=== PATIENT | female | born 1985 | race Caucasian/White ===

== ENCOUNTER → 2020-08-11 14:01 | Outpatient (BNVA) | payer OTHER, SELFPAY | PROVIDERS: PCP Internal Medicine; Referring Provider Internal Medicine; Visit Provider Advanced Practice Midwife | DX: Z76.89 Persons encountering health services in other specified circumstances (principal) ==

== ENCOUNTER 2020-08-18 08:08 | Outpatient (REF) | payer OTHER, SELFPAY ==
[2020-08-18 10:56] LABS: Amphetamine Screen Urine Not Detected (Not Detect); Barbiturates, Urine Not Detected (Not Detect); Benzodiazepines Screen Urine Not Detected (Not Detect); Cannabinoid Screen Urine Not Detected (Not Detect); Cocaine Screen Urine Not Detected (Not Detect); Opiate Screen Urine Not Detected (Not Detect); Phencyclidine Screen Urine Not Detected (Not Detect)
[2020-08-18 11:04] LABS: MANUAL DIFF FLAG NO
[2020-08-18 11:12] LABS: Basophils Absolute Auto 0.1 X10*3/uL (0.0-0.2); Basophils Percent Auto 0.5 % (0-2); Eosinophils Absolute Auto 0.3 X10*3/uL (0.0-0.4); Eosinophils Percent Auto 3.1 % (0-4); Hematocrit 37.9 % (37-47); Hemoglobin 13.1 g/dl (12.0-16.0); Imm Gran Abs Auto 0.05 X10*3/uL (0.00-0.03); Imm Gran Pct Auto 0.5 % (0.0-0.4); Lymphocytes Absolute Auto 2.1 X10*3/uL (1.2-4.9); Lymphocytes Percent Auto 19.6 % (20-40); Mean Corpuscular HGB Conc 34.6 g/dl (31.0-35.0); Mean Corpuscular Hemoglobin 30.8 pg (27.0-33.0); Mean Platelet Volume 9.4 fL (9.4-12.3); Monocytes Absolute Auto 0.6 X10*3/uL (0.1-1.2); Monocytes Percent Auto 5.8 % (2-11); Neutrophils Absolute Auto 7.7 X10*3/uL (2.0-8.3); Neutrophils Percent Auto 70.5 % (45-73); Platelet Count 329 X10*3/uL (160-400); Red Blood Count 4.26 X10*6/uL (4.20-5.50); White Blood Count 10.9 X10*3/uL (4.8-10.8)
[2020-08-18 11:28] LABS: Glucose 1 Hour PP 50gm Dose 171 mg/dL (60-140)
[2020-08-18 20:27] LABS: Syphilis Screen Nonreactive (Nonreactive)
[2020-08-21 08:43] LABS: HBsAGNum1 0.47 S/CO (0.00-0.99); HIV AB/AG Nonreactive (Nonreactive); HIV Num 1 0.08 S/CO (0.00-0.99); Hepatitis B Surface Antigen Negative (Negative)
== END 2020-08-18 08:09 | disposition home or self-care (01) ==
LOC: HO.LAB 08:08
PROVIDERS: PCP Internal Medicine; Referring Provider Internal Medicine; Visit Provider Advanced Practice Midwife
DX: Z34.90 Encounter for supervision of normal pregnancy, unspecified, unspecified trimester (principal)
CPT/HCPCS: 36415; 80307; 85025; 86762; 86780; 86787; 87340; 87389

== ENCOUNTER 2020-08-22 08:51 | Outpatient (REF) | payer OTHER, SELFPAY ==
[2020-08-22 16:00] LABS: CT PCR NOT DETECTED (Not Detect.); NG PCR NOT DETECTED (Not Detect.)
== END 2020-08-22 08:52 | disposition home or self-care (01) ==
LOC: HO.LAB 08:51
PROVIDERS: PCP Internal Medicine; Visit Provider Advanced Practice Midwife
DX: O09.521 Supervision of elderly multigravida, first trimester (principal); O99.211 Obesity complicating pregnancy, first trimester; O24.419 Gestational diabetes mellitus in pregnancy, unspecified control; Z3A.12 12 weeks gestation of pregnancy
CPT/HCPCS: 87086; 87491; 87591

== ENCOUNTER 2020-09-01 08:23 | Outpatient (REF) | payer OTHER, SELFPAY ==
[2020-09-01 11:08] LABS: Glucose 1 Hour 215 mg/dL
[2020-09-01 11:08] LABS: Glucose Fasting 86 mg/dL (60-99)
--- NOTE | 2020-09-01 12:17 | US_ITS ---
EXAMINATION: OBSTETRICAL ULTRASOUND, FIRST TRIMESTER HISTORY: 35-year-old at 13.4 weeks of gestation BMI 39.8 NT screening COMPARISON: 07/20/2020 TECHNIQUE: Real time transabdominal imaging with color and M-mode Doppler. FINDINGS: A single, live IUP CRL of 71 mm c/w 13.4wks is noted. Heart Rate: 144 beats per minute. Normal yolk sac seen. NT was 1.2.mm. NB Present The embryo appears sonographically wnl for this GA. Both maternal ovaries are seen and appear normal. GESTATIONAL AGE: 1. Established GA: 13.4 wks 2. GA from [facility]: 13.3 wks ESTIMATED DATE OF DELIVERY: 1. Established SANJAY: 03/05/2021 2. SANJAY from A: 03/06/2021 US/US OB 1T nuc measure IMPRESSION: 1. A single live IUP 2. Size equals dates 3. NT of 1.2 mm MFM Consultation: I reviewed the ultrasound findings along with significance of NT measurement. The NT of less than 3mm is generally reassuring. However, the sensitivity for T21 detection is only 60%. I reviewed the availability of serum aneuploidy screening which includes cell-free DNA and placental protein based tests. I discussed the sensitivity, false-positive rate, and other limitations associated with each test. I also reviewed the availability of invasive diagnostic tests that are associated small but definite risk of miscarriage. We also reviewed the differences between screening tests and diagnostic tests. After our discussion, she opted for the First trimester screening that is based on cell-free DNA or non-invasive testing (NIPT). The result will be faxed to your office in approximately 7 days. A follow up at 18 weeks for survey has been scheduled. Thank you very much for this referral. Majority of this visit was spent reviewing her care and counselling her in face to face time: Time spent 30 min.
[2020-09-01 12:58] LABS: Glucose 2 Hour 149 mg/dL
[2020-09-01 13:36] LABS: Glucose 3 Hour 64 mg/dL
== END 2020-09-01 08:24 | disposition home or self-care (01) ==
LOC: HO.US 08:23
PROVIDERS: PCP Internal Medicine; Visit Provider Advanced Practice Midwife
DX: Z34.90 Encounter for supervision of normal pregnancy, unspecified, unspecified trimester (principal); Z36.82 Encounter for antenatal screening for nuchal translucency
CPT/HCPCS: 76813; 82951

== ENCOUNTER → 2020-09-12 08:25 | Outpatient (BNVA) | payer OTHER, SELFPAY | PROVIDERS: PCP Internal Medicine; Visit Provider Advanced Practice Midwife | DX: Z76.89 Persons encountering health services in other specified circumstances (principal) ==

== ENCOUNTER 2020-10-13 12:53 | Outpatient (REF) | payer OTHER, SELFPAY ==
--- NOTE | 2020-10-13 12:57 | US_ITS ---
EXAMINATION: US OBSTETRICAL CLINICAL INFORMATION: 35-year-old at 19.4 weeks of gestation Suspected anomaly AMA COMPARISON: 09/01/2020 TECHNIQUE: Real-time transabdominal ultrasound was performed using C1-5 megahertz transducer. FINDINGS: A single, active, fetus is seen in vertex presentation. The placenta is anterior without previa, and the amniotic fluid volume is wnl. MEASUREMENTS: 1. Biparietal Diameter: 4.4 cm; 19.2 wks 2. Occipital Frontal Diameter: 6.1 cm 3. Head Circumference: 16.98 cm; 19.5 wks 4. Abdominal Circumference: 14.96 cm; 20.2 wks 5. Femur Length: 3.1 cm; 19.5 wks 6. Humerus Length: 2.9 cm; 19.3 wks 7. Tibia Length: 2.8 cm; 20.1 wks 8. Ulna Length: 2.6 cm; 19.4 wks 9. Lateral ventricle: 0.64 cm 10. Cerebellum: 1.94 cm; 20.0 wks 11. Cisterna Magna: 0.38 cm 12. Nuchal Fold: 2.91 mm 13. Heart Rate: 152 beats per minute Rt ovary: normal Lt ovary: normal Cervical length 4.3 cm on T/A. GESTATIONAL AGE: 1. Established GA: 19.4 wks 2. GA from [facility]: 19.6 wks ESTIMATED DATE OF DELIVERY: 1. Established SANJAY: 03/05/2021 2. SANJAY from [facility]: 03/03/2021 ANATOMY: The visualized anatomy includes but not limited to: 1. Cranium: Normal 2. Intracranial anatomy: cavum septum pellucidi, lateral ventricles, choroid plexus, cerebellum, posterior fossa, third and fourth ventricles. 3. face: orbits, lip/palate, profile, nasal bone 4. Heart: four-chamber view of the heart, ventricular septum, foramen ovale, pulmonary vein, left and right outflow tracts, three-vessel view, 3 vessel trachea view, aortic and ductal arches, situs.. 5. Diaphragm: Normal 6. Abdominal wall: Normal 7. Cord Insertion: Normal 8. Spine: Cervical, thoracic, lumbar, sacral. 9. Stomach: Normal size and shape 10. Right Kidney: Normal 11. Left Kidney: Normal 12. 3 vessel cord: Normal 13. Upper extremity: Open hands, fifth digit. 14. Lower extremity: Tibia, fibula, bilateral feet. 15. Bladder: Normal 16. Genitalia: Female, patient aware US/US OB /maternal detail IMPRESSION: 1. Single, living, intrauterine with appropriate biometry. 2. Normal survey DISCUSSION: I reviewed today's ultrasound findings. We discussed the limitations of ultrasound in diagnosing aneuploidy and other congenital abnormalities. I reviewed the differences between screening test and diagnostic test. Amniocentesis was discussed and declined. She was informed that the baseline incidence of congenital abnormalities is approximately 3-5%. Not all these conditions are diagnosable in utero. RECOMMENDATIONS: 1. Follow-up when necessary Thank you for allowing me to participate in her care. Visiting time 25 minutes. Majority of this visit was spent reviewing and discussing her care.
== END 2020-10-13 12:54 | disposition home or self-care (01) ==
LOC: HO.US 12:53
PROVIDERS: Visit Provider Advanced Practice Midwife
DX: O09.522 Supervision of elderly multigravida, second trimester (principal); O99.212 Obesity complicating pregnancy, second trimester; E66.9 Obesity, unspecified; Z36.3 Encounter for antenatal screening for malformations; Z3A.19 19 weeks gestation of pregnancy
CPT/HCPCS: 76811

== ENCOUNTER 2020-11-09 10:27 | Outpatient (REF) | payer OTHER, SELFPAY ==
[2020-11-10 12:55] LABS: BV Int Neg Control Negative (Negative); BV Int Pos Control Positive (Positive)
[2020-11-12 08:12] LABS: C. trachomatis RNA TMA NOT DETECTED (NOT DETECTED); N. gonorrhoeae RNA TMA NOT DETECTED (NOT DETECTED)
== END 2020-11-09 10:28 | disposition home or self-care (01) ==
LOC: HO.LAB 10:27
PROVIDERS: PCP Internal Medicine; Visit Provider Advanced Practice Midwife
DX: O26.892 Other specified pregnancy related conditions, second trimester (principal); R31.29 Other microscopic hematuria; N89.8 Other specified noninflammatory disorders of vagina; Z3A.23 23 weeks gestation of pregnancy
CPT/HCPCS: 81003; 86850; 86900; 86901; 87086; 87480; 87491; 87510; 87591; 87660; 99212

== ENCOUNTER → 2020-11-16 10:36 | Outpatient (BNVA) | payer OTHER, SELFPAY | PROVIDERS: PCP Internal Medicine; Visit Provider Advanced Practice Midwife | DX: Z34.80 Encounter for supervision of other normal pregnancy, unspecified trimester (principal); E66.9 Obesity, unspecified | CPT/HCPCS: 81003; 99212 ==

== ENCOUNTER → 2020-12-14 11:01 | Outpatient (BNVA) | payer OTHER, SELFPAY | PROVIDERS: PCP Internal Medicine; Visit Provider Advanced Practice Midwife | DX: O09.523 Supervision of elderly multigravida, third trimester (principal); O99.213 Obesity complicating pregnancy, third trimester; E66.9 Obesity, unspecified; Z3A.28 28 weeks gestation of pregnancy; Z79.82 Long term (current) use of aspirin | CPT/HCPCS: 81003; 90471; 90715; 99212 ==

== ENCOUNTER 2020-12-20 07:35 | Outpatient (REF) | payer OTHER, SELFPAY ==
--- NOTE | ~2020-12-20 | US_ITS ---
EXAMINATION: US OBSTETRICAL FOLLOW UP WITH BIOPHYSICAL PROFILE CLINICAL INFORMATION: Obesity. Advanced maternal age. COMPARISON: Previous exam most recent October 2020 TECHNIQUE: Real time transabdominal imaging with color and M-mode Doppler. POSITION: Breech PLACENTA: Anterior. Grade 2. AMNIOTIC FLUID INDEX: 14.1 cm MEASUREMENTS: The initial dating ultrasound dated provided an estimated date of delivery of 03/05/2021. This would project today to a of 29 weeks 2 days. biometric measurements are as follows: Biparietal Diameter: 7.6 cm (30 weeks 5 days) Occipital Frontal Diameter: 10.2 cm (31 weeks 6 days) Head Circumference: 28.6 cm (31 weeks 4 days) Abdominal Circumference: 27.8 cm (32 weeks 0 days) Femur Length: 5.6 cm (29 weeks 4 days) The standard deviation for the above measurements is +/- 3 weeks. ESTIMATED WEIGHT: The EFW is 1683 grams +/- 246 grams (3 lbs 11 oz +/- 9 oz). This is at the 92nd percentile. BIOPHYSICAL PROFILE: Biophysical profile is performed over 30 minutes with assessment of breathing, gross body movement, tone, and qualitative amniotic fluid volume. Each matrix is scored 0 or 2, depending if the metric is present. Maximum total score possible is 8. Motion: 2 Tone: 2 Breathin Amniotic Fluid: 2 Total score: 8 HR: 153 bpm US/US OB follow up IMPRESSION: 1. Single intrauterine gestation in breech position with anterior placenta. 2. EFW: 3 lbs. 11 oz. 3. SHERRY: 14 cm. 4. BPP score: 8 (scale 0-8).
[2020-12-20 08:42] LABS: Hematocrit 32.6 % (37-47); Mean Corpuscular HGB Conc 33.7 g/dl (31.0-35.0); Mean Corpuscular Hemoglobin 29.8 pg (27.0-33.0); Mean Corpuscular Volume 88.3 fL (80-98); Mean Platelet Volume 9.3 fL (9.4-12.3); Platelet Count 345 X10*3/uL (160-400); Red Blood Count 3.69 X10*6/uL (4.20-5.50); Red Cell Distribution Width 13.7 % (11.0-16.0); White Blood Count 13.4 X10*3/uL (4.8-10.8)
[2020-12-20 09:15] LABS: Glucose Fasting 91 mg/dL (60-99)
[2020-12-20 09:35] LABS: HIV AB/AG Nonreactive (Nonreactive); HIV Num 1 0.09 S/CO (0.00-0.99)
[2020-12-20 09:40] LABS: Syphilis Screen Nonreactive (Nonreactive)
[2020-12-20 10:49] LABS: Glucose 1 Hour 205 mg/dL
[2020-12-20 11:04] LABS: Glucose 2 Hour 179 mg/dL
[2020-12-20 12:09] LABS: Glucose 3 Hour 90 mg/dL
[2020-12-21 12:46] LABS: C. trachomatis RNA TMA NOT DETECTED (NOT DETECTED); N. gonorrhoeae RNA TMA NOT DETECTED (NOT DETECTED)
== END 2020-12-20 07:36 | disposition home or self-care (01) ==
LOC: HO.LAB 07:35
PROVIDERS: PCP Internal Medicine; Visit Provider Advanced Practice Midwife
DX: O09.513 Supervision of elderly primigravida, third trimester (principal); O99.213 Obesity complicating pregnancy, third trimester; O36.63X0 Maternal care for excessive fetal growth, third trimester, not applicable or unspecified; Z3A.29 29 weeks gestation of pregnancy
CPT/HCPCS: 36415; 76816; 82951; 85027; 86780; 87389; 87491; 87591

== ENCOUNTER → 2021-02-01 13:36 | Outpatient (BNVA) | payer OTHER, SELFPAY | PROVIDERS: PCP Internal Medicine; Visit Provider Internal Medicine Endocrinology, Diabetes & Metabolism | DX: O24.419 Gestational diabetes mellitus in pregnancy, unspecified control (principal); Z3A.35 35 weeks gestation of pregnancy | CPT/HCPCS: 99202 ==

== ENCOUNTER 2021-02-02 13:34 | Emergency (ER) | payer OTHER, SELFPAY ==
--- NOTE | ~2021-02-02 | US_ITS ---
EXAMINATION: US VENOUS ULTRASOUND WITH DOPPLER LOWER EXTREMITY, BILATERAL CLINICAL INFORMATION: Bilateral lower extremity swelling. COMPARISON: None TECHNIQUE: Ultrasound of the deep veins is performed from the hip to the calf with compression sonography and color and pulse Doppler assessment. Spectral analysis with color-flow imaging is performed. FINDINGS: RIGHT: There is normal venous compression and respiratory variation and augmented flow. The visualized common femoral vein, superficial femoral vein, profunda femoral vein, popliteal vein, and the trifurcation region shows no evidence of deep venous thrombosis. There is no significant popliteal fossa cyst. LEFT: There is normal venous compression and respiratory variation and augmented flow. The visualized common femoral vein, superficial femoral vein, profunda femoral vein, popliteal vein, and the trifurcation region shows no evidence of deep venous thrombosis. There is no significant popliteal fossa cyst. If the patient's symptoms persist, followup ultrasound in 5 days 7 days might be of value to exclude proximal propagation from a non-visualized calf vein. US/US venous duplex LE BI IMPRESSION: No DVT demonstrated in the bilateral lower extremity.
--- NOTE | ~2021-02-02 | NM_ITS ---
EXAMINATION: PULMONARY PERFUSION STUDY CLINICAL INFORMATION: 35 weeks , dyspnea, rule out pulmonary embolism. COMPARISON: No previous lung scan is available for comparison. A radiograph of the chest dated 05/20/2019 is the most recent available for comparison. TECHNIQUE: Following the intravenous injection of 1.0 mCi Tc-99m MAA, an 8-view perfusion study was performed using a gamma scintillation camera. A reduced dose of radiopharmaceutical was used because of the patient's . FINDINGS: No segmental perfusion defects are present. There is homogeneous distribution of activity bilaterally. There are no focal anatomic appearing perfusion defects present. NM/NM pul perfusion IMPRESSION: Normal radionuclide lung perfusion scan.
[2021-02-02 13:42] VITALS: BP 120/57; PULSE 103; RESP 15; TEMP 36.7; O2SAT 97; BMI 40.9
--- NOTE | 2021-02-02 14:08 | ED.GENADULT ---
HPI - General Adult General Chief complaint: General Medical Stated complaint: sob, swelling Time Seen by Provider: 02/02/21 14:08 Source: patient Mode of arrival: ambulatory Limitations: no limitations History of Present Illness HPI narrative: 35-year-old female, G4, P1, 35 weeks , EDC March 04, 2021 who presents emergency department for evaluation of shortness of breath, dyspnea on exertion and upper and lower extremity swelling. The patient states that she has had upper and lower extremity swelling for 1 week which is getting progressively worse. She states that over the past 2 days she has had significant dyspnea on exertion, orthopnea and shortness of breath at rest. She denied headache, neck or jaw pain, chest pain, abdominal pain, lower extremity pain. She denied fever, chills, nausea or vomiting. She states that she has good movement. She has not noticed any vaginal discharge. She states that she has been having difficulty with her glucose and she has been monitoring her glucose. She states that her fasting glucoses are in the 90 range and her postprandial glucoses are in the 160 range. She is not taking any medications. The patient states that she has been getting her care through the [address] [place] [address] [facility] was trying to get her care changed to the OB [facility] at [facility]. The patient has not had a COVID-19 infection. She has not been vaccinated. She has not had any known exposures. Related Data Home Medications Medication Instructions Recorded Confirmed vits-iron 27 mg-folic ac pkg PO 08/11/20 02/01/21 1 mg-om3 312 mg-dha 250 mg oral pack blood sugar diagnostic #10 ea 02/01/21 02/01/21 blood-glucose meter #1 ea 02/01/21 02/01/21 lancets 28 gauge #100 ea 02/01/21 02/01/21 Previous Rx's Medication Instructions Recorded aspirin 81 mg tablet,delayed 81 mg PO DAILY 30 Days #60 tab 08/22/20 release metronidazole 500 mg tablet 500 mg PO BID 7 Days #14 tab 11/16/20 Allergies Allergy/AdvReac Type Severity Reaction Status Date / Time No Known Allergies Allergy Verified 12/14/20 11:10 Review of Systems Review of Systems: Yes all other systems are reviewed and are negative FOR[facility]LY [facility] Past Medical History Medical History (Updated 02/02/21 @ 18:08 by Uri Escudero MD) Anemia Bipolar disorder Depression Gestational diabetes Gestational diabetes Hematuria Kidney cysts Migraines Obesity (BMI 30-39.9) Surgical History No history of previous surgery Family History Family History Mother Hx of diabetes mellitus History of hypothyroidism Father Hx of coronary artery disease History of hypertension Maternal Grandfather Hx of diabetes mellitus Paternal Grandmother Hx of diabetes mellitus Maternal Grandfather Hx of coronary artery disease Paternal Grandfather No problems noted. Social History Social History Alcohol intake: never Smoking Status: Never smoker Use of substances other than those prescribed or required for medical reasons: No Advance Directives: Yes Advance Directives Information Provided: No Advance Directives on File: No Physical Exam Vital Signs: Vital Signs: Last Vital Signs Temp 98.1 F 02/02/21 13:42 Pulse 88 02/02/21 17:22 Resp 18 02/02/21 17:22 BP 97/43 L 02/02/21 17:22 Pulse Ox 99 02/02/21 17:22 Body Mass Index 40.9 Const: General: cooperative and healthy appearing Orientation/consciousness: oriented to person and oriented to place Limitations: no limitations HENMT: Head: Yes normal to inspection, Yes normocephalic and Yes atraumatic Ears: external ears normal General nose exam: Normal external nose present Face and sinus: Yes normal facial exam Mouth: Normal oral and palatal mucosa present Throat: Yes posterior oropharynx normal Eyes: Periorbital: periorbital findings normal Eyelids: Yes eyelids normal Conjunctivae: conjunctivae normal Sclerae: sclerae normal Corneas: corneas normal Pupils: Equal, round and reactive pupils present Direct Ophthalmoscopy: normal light reflex Neck: Neck: Yes full ROM, Yes no lymphadenopathy, Yes no meningeal signs, Yes trachea midline and Yes supple Chest: Chest palpation & inspection: normal inspection of the chest and normal palpation of entire chest wall Resp: Effort & Inspection: normal respiratory effort and able to speak in complete sentences Auscultation: clear to auscultation bilaterally Cardio: Rate: regular rate Rhythm: regular rhythm Heart sounds: S1 normal heart sound present, S2 normal heart sound present and no murmurs GI: Inspection: Yes normal to inspection Palpation (GI): Soft to palpation, Tenderness to palpation present (GI) suprapubicly ([id number]) and other (Gravid uterus), no guarding, not rigid and No hepatosplenomegaly present : General: Yes no CVA tenderness Back/Spine/Pelvis: Back: no CVA tenderness Cervical Spine: normal cervical lordosis Thoracic/Lumbar Spine: thoracic and lumbar spine normal to inspection Skin: Lesions: no lesions Rashes: no rashes Wounds: no wounds Neuro: General: oriented to person, oriented to place and no meningeal signs Cranial nerves: Yes CN's II-XII intact bilaterally and Yes Equal, round and reactive pupils present Cognition (Neuro): normal cognition Motor exam (neuro): 5/5 motor strength present throughout Extrem: General: Yes normal to inspection, Yes full ROM and Yes other (Trace pitting edema to the left lower extremity, trace to 1+ pitting edema ) Psych: Appearance: well kempt Mental Status: mental status grossly normal Speech and movement: Normal speech and movement present Affect: normal affect Attitude: cooperative Thought process: Normal thought process present Thought content: Normal thought content present Course Course Course Narrative: 35-year-old female G4, P 3, 35 weeks with EDC March 04, 2021 who presents emergency department for evaluation of progressive increased swelling of her upper and lower extremities x1 week, shortness of breath, orthopnea and dyspnea on exertion times 2 days. Physical examination revealed a normal blood pressure of 120/57, tachycardia with a pulse of 103, normal respiratory rate of 15, and normal O2 saturation of 97% on room air. I am concerned that the patient may have preeclampsia or a pulmonary embolism/DVT is the cause of her symptoms. I did order a CBC, CMP, urinalysis, V/Q scan, bilateral Doppler ultrasounds. I will contact the patient's [facility]ator service to discuss the patient's presentation. 1803: I did contact the patient's OBGYN provider, Princess Melo and informed her of the patient's presentation. The patient's perfusion scan was normal with no evidence pulmonary embolism. The patient's Doppler ultrasound her lower extremities revealed no DVT. The patient's CBC revealed mild anemia with an H&H of 10.3 and 30.4 with a normal platelet count of [id number]. Coags were normal. The patient's COVID-19 screen was negative. The patient's comprehensive metabolic panel which included LFTs was normal. Urinalysis was normal with no protein. At this time I do not think the patient has preeclampsia and the patient will be discharged home. Patient was advised to contact her OBGYN provider for follow-up within the next 2-3 days. Medical Decision Making Lab Data Result diagrams: 02/02/21 17:17 02/02/21 17:17 Labs: Lab Results 02/02/21 02/02/21 02/02/21 Range/Units 17:17 17:17 17:17 WBC 11.5 H (4.8-10.8) X10*3/uL RBC 3.47 L (4.20-5.50) X10*6/uL Hgb 10.3 L (12.0-16.0) g/dl Hct 30.4 L (37-47) % MCV 87.6 (80-98) fL MCH 29.7 (27.0-33.0) pg MCHC 33.9 (31.0-35.0) g/dl RDW 14.2 (11.0-16.0) % Plt Count 358 (160-400) X10*3/uL MPV 9.3 L (9.4-12.3) fL Immature Gran % (Auto) 0.6 H (0.0-0.4) % Neut % (Auto) 66.4 (45-73) % Lymph % (Auto) 20.5 (20-40) % [place] % (Auto) 9.1 (2-11) % Eos % (Auto) 3.1 (0-4) % Baso % (Auto) 0.3 (0-2) % Lymph # (Auto) 2.4 (1.2-4.9) X10*3/uL [place] # (Auto) 1.0 (0.1-1.2) X10*3/uL Eos # (Auto) 0.4 (0.0-0.4) X10*3/uL Baso # (Auto) 0.0 (0.0-0.2) X10*3/uL Abs Immat Gran (auto) 0.07 H (0.00-0.03) X10*3/uL Absolute Neuts (auto) 7.6 (2.0-8.3) X10*3/uL Absolute Nucleated RBC 0.000 (0.0-0.012) X10*3/uL Nucleated RBC % (auto) 0.0 (0.0-0.2) /100WBC PT 12.2 (10.8-13.0) SEC INR 1.0 (0.9-1.1) APTT 30.5 (24.1-38.0) SEC Sodium 137 (135-145) mmol/L Potassium 4.0 (3.3-5.1) mmol/L Chloride 108 (96-108) mmol/L Carbon Dioxide 21 L (22-29) mmol/L Anion Gap 12 (12-20) BUN 5 L (9-16) mg/dL Creatinine 0.62 (0.5-1.4) mg/dL Estim Creat Clear Calc 156.1 Estimated GFR > 60 Random Glucose 101 (60-115) mg/dL Calcium 8.7 (8.4-10.2) mg/dL Total Bilirubin < 0.2 (0.0-1.0) mg/dL AST 7 (5-31) U/L ALT 6 (0-31) U/L Alkaline Phosphatase 72 (39-117) U/L Total Protein 5.7 L (6.5-8.0) g/dL Albumin 3.0 L (3.5-5.0) g/dL Urine Color Urine Appearance Urine pH (5.0-8.0) Ur Specific [place] (1.005-1.025) Urine Protein (NEG-TRACE) MG/DL Urine Glucose (UA) (NEG) MG/DL Urine Ketones (NEG) MG/DL Urine Blood (NEG) Urine Nitrite (NEG) Ur Leukocyte Esterase (NEG) COVID-19 (LEROY) (Negative) COVID-19 Clin Com 02/02/21 02/02/21 Range/Units 17:17 17:55 WBC (4.8-10.8) X10*3/uL RBC (4.20-5.50) X10*6/uL Hgb (12.0-16.0) g/dl Hct (37-47) % MCV (80-98) fL MCH (27.0-33.0) pg MCHC (31.0-35.0) g/dl RDW (11.0-16.0) % Plt Count (160-400) X10*3/uL MPV (9.4-12.3) fL Immature Gran % (Auto) (0.0-0.4) % Neut % (Auto) (45-73) % Lymph % (Auto) (20-40) % [place] % (Auto) (2-11) % Eos % (Auto) (0-4) % Baso % (Auto) (0-2) % Lymph # (Auto) (1.2-4.9) X10*3/uL [place] # (Auto) (0.1-1.2) X10*3/uL Eos # (Auto) (0.0-0.4) X10*3/uL Baso # (Auto) (0.0-0.2) X10*3/uL Abs Immat Gran (auto) (0.00-0.03) X10*3/uL Absolute Neuts (auto) (2.0-8.3) X10*3/uL Absolute Nucleated RBC (0.0-0.012) X10*3/uL Nucleated RBC % (auto) (0.0-0.2) /100WBC PT (10.8-13.0) SEC INR (0.9-1.1) APTT (24.1-38.0) SEC Sodium (135-145) mmol/L Potassium (3.3-5.1) mmol/L Chloride (96-108) mmol/L Carbon Dioxide (22-29) mmol/L Anion Gap (12-20) BUN (9-16) mg/dL Creatinine (0.5-1.4) mg/dL Estim Creat Clear Calc Estimated GFR Random Glucose (60-115) mg/dL Calcium (8.4-10.2) mg/dL Total Bilirubin (0.0-1.0) mg/dL AST (5-31) U/L ALT (0-31) U/L Alkaline Phosphatase (39-117) U/L Total Protein (6.5-8.0) g/dL Albumin (3.5-5.0) g/dL Urine Color YELLOW Urine Appearance HAZY Urine pH 6.0 (5.0-8.0) Ur Specific [place] 1.020 (1.005-1.025) Urine Protein NEG (NEG-TRACE) MG/DL Urine Glucose (UA) NEG (NEG) MG/DL Urine Ketones NEG (NEG) MG/DL Urine Blood NEG (NEG) Urine Nitrite NEG (NEG) Ur Leukocyte Esterase NEG (NEG) COVID-19 (LEROY) Negative (Negative) COVID-19 Clin Com See Note Discharge Plan Discharge Clinical Impression: Third trimester , Edema, peripheral, Acute dyspnea, Shortness of breath Additional Instructions: Your Doppler ultrasound evaluation of both of your legs were normal, there were no blood clots noted on this exam which is reassuring. The nuclear medicine perfusion scan revealed no disruption of the blood flow to your lungs suggesting that you do not have any large blood clots, this is reassuring as well. You are mildly anemic with a hemoglobin and hematocrit of 10.3 and 30.4. This is normal for . Your platelet count was normal Your comprehensive metabolic panel was normal with normal, liver function tests were normal and kidney function was normal. Your urinalysis was normal. Follow-up with the [address] [place] [address] [facility] in 2 days. Please return to the emergency department if your symptoms get worse or if you develop any symptoms that are concerning to you. Prescriptions: No Action aspirin 81 mg tablet,delayed release (DR/EC) 81 mg PO DAILY 30 Days Qty: 60 RF: 7 metronidazole [Flagyl] 500 mg tablet 500 mg PO BID 7 Days Qty: 14 RF: 0 Plus DHA 27 mg iron-1 mg -312 mg-250 mg combo pack PO RF: 0 (DME) lancets 28 gauge misc See Rx Instructions ea topical QID Qty: 100 RF: 0 (DME) blood-glucose meter Kit See Rx Instructions ea .ROUTE QID Qty: 1 RF: 0 (DME) FreeStyle Lite Strips Strip See Rx Instructions ea Not Applicable QID Qty: 10 RF: 0
[2021-02-02 17:22] VITALS: BP 97/43; PULSE 88; RESP 18; O2SAT 99
[2021-02-02 17:26] LABS: MANUAL DIFF FLAG NO
[2021-02-02 17:29] LABS: Basophils Percent Auto 0.3 % (0-2); Eosinophils Absolute Auto 0.4 X10*3/uL (0.0-0.4); Eosinophils Percent Auto 3.1 % (0-4); Hematocrit 30.4 % (37-47); Hemoglobin 10.3 g/dl (12.0-16.0); Imm Gran Abs Auto 0.07 X10*3/uL (0.00-0.03); Imm Gran Pct Auto 0.6 % (0.0-0.4); Lymphocytes Absolute Auto 2.4 X10*3/uL (1.2-4.9); Lymphocytes Percent Auto 20.5 % (20-40); Mean Corpuscular HGB Conc 33.9 g/dl (31.0-35.0); Mean Corpuscular Hemoglobin 29.7 pg (27.0-33.0); Mean Corpuscular Volume 87.6 fL (80-98); Mean Platelet Volume 9.3 fL (9.4-12.3); Monocytes Percent Auto 9.1 % (2-11); Neutrophils Absolute Auto 7.6 X10*3/uL (2.0-8.3); Neutrophils Percent Auto 66.4 % (45-73); Platelet Count 358 X10*3/uL (160-400); Red Blood Count 3.47 X10*6/uL (4.20-5.50); Red Cell Distribution Width 14.2 % (11.0-16.0); White Blood Count 11.5 X10*3/uL (4.8-10.8)
[2021-02-02 17:34] LABS: Prothrombin Time 12.2 SEC (10.8-13.0)
[2021-02-02 17:36] LABS: Partial Thromboplastin Time 30.5 SEC (24.1-38.0)
[2021-02-02 17:52] LABS: COVID-19 Test Negative (Negative)
[2021-02-02 18:06] LABS: Alanine Aminotransferase 6 U/L (0-31); Alkaline Phosphatase 72 U/L (39-117); Anion Gap 12 (12-20); Aspartate Amino Transferase 7 U/L (5-31); Bilirubin Total < 0.2 mg/dL (0.0-1.0); Blood Urea Nitrogen 5 mg/dL (9-16); Calcium 8.7 mg/dL (8.4-10.2); Carbon Dioxide 21 mmol/L (22-29); Chloride 108 mmol/L (96-108); Creatinine Clr Calc Pharmacy 156.1; Estimated Glomerular Filt Rate > 60; Glucose Random 101 mg/dL (60-115); Sodium 137 mmol/L (135-145); Total Protein 5.7 g/dL (6.5-8.0)
[2021-02-02 18:06] LABS: Glucose Urine UA NEG (NEG); Leukocyte Esterase Urine NEG (NEG); Nitrite Urine NEG (NEG); Urine Blood NEG (NEG); Urine Ketones NEG (NEG); Urine Protein NEG (NEG-TRACE)
[2021-02-02 18:12] LABS: Appearance Urine HAZY; Color Urine YELLOW
== END 2021-02-02 18:30 | disposition home or self-care (01) ==
PROVIDERS: Emergency Provider Emergency Medicine Emergency Medical Services; PCP Internal Medicine
DX: O26.93 Pregnancy related conditions, unspecified, third trimester (principal); R60.0 Localized edema; R06.02 Shortness of breath; Z3A.35 35 weeks gestation of pregnancy; Z79.899 Other long term (current) drug therapy; Z20.822 Contact with and (suspected) exposure to COVID-19
CPT/HCPCS: 36415; 78580; 80053; 81003; 85025; 85610; 85730; 87635; 93970; 99284; A9540

== ENCOUNTER → 2021-02-20 14:22 | Outpatient (BNVA) | payer OTHER, SELFPAY | PROVIDERS: PCP Internal Medicine; Visit Provider Internal Medicine Endocrinology, Diabetes & Metabolism | DX: O24.419 Gestational diabetes mellitus in pregnancy, unspecified control (principal) | CPT/HCPCS: 99212 ==

== ENCOUNTER 2021-03-02 04:19 | Emergency (ER) | payer OTHER, SELFPAY ==
--- NOTE | ~2021-03-02 | CT_ITS ---
EXAMINATION: CT ANGIOGRAM OF THE CHEST WITH AND WITHOUT CONTRAST (CT PULMONARY ANGIOGRAM FOR PE) CLINICAL INFORMATION: Reason for Exam Chest discomfort, shortness of breath, COMPARISON: None TECHNIQUE: Prior to contrast administration, noncontrast localization images were obtained. Subsequently, multidetector volumetric imaging was performed from the thoracic inlet to below the diaphragms following the administration of 65 mL Omnipaque 350 intravenous contrast. No contrast reaction reported Sagittal, coronal, and MIP oblique sagittal reformatted images were obtained on the CT workstation, uploaded to PACS, and reviewed. This CT examination was performed using dose optimization techniques as appropriate, variously including the following: *Automated exposure control *Adjustment of mA and/or kV according to patient size (this includes techniques or standardized protocols for targeted exams where dose is matched to indication/reason for exam; i.e. extremities or head) *Use of iterative reconstruction technique Total exam dose-length product 387 mGy-cm FINDINGS: QUALITY OF STUDY/CONTRAST BOLUS: Satisfactory to the proximal segmental level. Assessment of the distal segmental and subsegmental level pulmonary arteries is limited by respiratory motion artifact. PULMONARY ARTERIES: No central or proximal segmental pulmonary emboli. THORACIC AORTA: No aneurysm or dissection. LUNG: Interlobular septal thickening is evident in both lungs, most notably at the bases. No airspace consolidation. Patchy atelectasis is present within the lower lobes dependent debris. No pulmonary nodules are identified. Respiratory motion somewhat limits sensitivity for small nodules, however. Central airways are clear. PLEURA: Small bilateral pleural effusions are dependent and simple. MEDIASTINUM: Normal heart size. No pericardial effusion. No hilar or mediastinal lymphadenopathy. No evidence of septal bowing or right heart strain. CHEST WALL/AXILLA: No axillary or internal mammary lymphadenopathy. OSSEOUS STRUCTURES: Mild/moderate multilevel degenerative spondylosis is present in the thoracic spine with prominent osteophytes. No acute fracture or malalignment. No aggressive osseous lesions. UPPER ABDOMEN: Unremarkable. No reflux of contrast into the hepatic veins to suggest elevated right heart pressures. CT/CT angio chest PE protocol IMPRESSION: 1. No evidence of pulmonary emboli to the proximal segmental levels. 2. Mild pulmonary interstitial edema and small bilateral pleural effusions. No airspace consolidation. VTE: negative
--- NOTE | ~2021-03-02 | XR_ITS ---
EXAMINATION: XR CHEST CLINICAL INFORMATION: Shortness of breath COMPARISON: 05/20/2019 TECHNIQUE: 2 views of the chest were obtained. FINDINGS: The lungs are well expanded. Bronchial wall thickening is present, increased from prior. Mild interstitial prominence. There is no focal consolidation or effusion. No pneumothorax. The cardiomediastinal silhouette is within normal limits. No acute osseous abnormality. XR/XR chest 2V IMPRESSION: Bronchial wall thickening and interstitial prominence. Findings may represent edema versus small airways process such as asthma or atypical/viral infection.
[2021-03-02 04:27] VITALS: BP 143/82; PULSE 80; RESP 16; TEMP 36.8; O2SAT 97; BMI 42.9
[2021-03-02 05:05] LABS: Basophils Percent Auto 0.3 % (0-2); Eosinophils Absolute Auto 0.4 X10*3/uL (0.0-0.4); Eosinophils Percent Auto 3.4 % (0-4); Hematocrit 29.4 % (37-47); Hemoglobin 9.9 g/dl (12.0-16.0); Imm Gran Abs Auto 0.09 X10*3/uL (0.00-0.03); Imm Gran Pct Auto 0.9 % (0.0-0.4); Lymphocytes Absolute Auto 1.9 X10*3/uL (1.2-4.9); Lymphocytes Percent Auto 18.2 % (20-40); MANUAL DIFF FLAG NO; Mean Corpuscular HGB Conc 33.7 g/dl (31.0-35.0); Mean Corpuscular Hemoglobin 29.7 pg (27.0-33.0); Mean Corpuscular Volume 88.3 fL (80-98); Mean Platelet Volume 9.2 fL (9.4-12.3); Monocytes Absolute Auto 0.7 X10*3/uL (0.1-1.2); Monocytes Percent Auto 6.6 % (2-11); Neutrophils Absolute Auto 7.2 X10*3/uL (2.0-8.3); Neutrophils Percent Auto 70.6 % (45-73); Platelet Count 362 X10*3/uL (160-400); Red Blood Count 3.33 X10*6/uL (4.20-5.50); Red Cell Distribution Width 14.9 % (11.0-16.0); White Blood Count 10.2 X10*3/uL (4.8-10.8)
[2021-03-02 05:34] LABS: Anion Gap 14 (12-20); Blood Urea Nitrogen 7 mg/dL (9-16); Calcium 9.2 mg/dL (8.4-10.2); Carbon Dioxide 23 mmol/L (22-29); Chloride 108 mmol/L (96-108); Creatinine Clr Calc Pharmacy 139.1; Estimated Glomerular Filt Rate > 60; Glucose Random 83 mg/dL (60-115); Potassium 4.1 mmol/L (3.3-5.1); Sodium 141 mmol/L (135-145)
--- NOTE | 2021-03-02 05:56 | ECG_ITS ---
Test Reason : SOB Blood Pressure : / mmHG Vent. Rate : 073 BPM Atrial Rate : 073 BPM P-R Int : 128 ms QRS Dur : 090 ms QT Int : 388 ms P-R-T Axes : 032 075 032 degrees QTc Int : 427 ms Normal sinus rhythm Possible Left atrial enlargement RSR' or QR pattern in V1 suggests right ventricular conduction delay Borderline ECG When compared with ECG of 26-MAY-2012 19:57, No significant change was found Referred By: Tina Ewing Electronically Signed By:David Cooper
[2021-03-02 06:00] VITALS: BP 135/84; PULSE 83; RESP 18; O2SAT 96
[2021-03-02 06:22] LABS: D Dimer 866 NG/ML
[2021-03-02 06:32] LABS: B Type Natriuretic Peptide 146 pg/mL (<100)
[2021-03-02 06:35] LABS: TSH reflex Free T4 3.18 uIU/mL (0.32-4.0)
[2021-03-02] MEDS: iohexoL 350 MG/ML 100 ML INFUS..BTL 65 ML IV (07:00)
--- NOTE | 2021-03-02 08:16 | ED.SOB ---
HPI - SOB/Dyspnea General Chief Complaint: Upper Respiratory Symptoms Stated Complaint: SOB Time Seen by Provider: 03/02/21 05:56 Source: patient Mode of arrival: ambulatory History of Present Illness HPI Narrative: The 35-year-old female who presents 3 with complaints of increased and worsening shortness of breath that she states is worse with lying flat as well as on exertion. She denies any associated fever, chills, nausea or vomiting, but states that she has had corresponding increase swelling of bilateral lower extremities. She door says that her with this otherwise uncomplicated other than gestational diabetes however she was able to have spontaneous vaginal delivery without noted complications. She has been able to breast-feed and does so approximately twice a day. She denies any history of asthma or underlying cardiac or thyroid conditions. Related Data Home Medications Medication Instructions Recorded Confirmed vits-iron 27 mg-folic ac pkg PO 08/11/20 02/20/21 1 mg-om3 312 mg-dha 250 mg oral pack blood sugar diagnostic #10 ea 02/01/21 02/20/21 blood-glucose meter #1 ea 02/01/21 02/20/21 lancets 28 gauge #100 ea 02/01/21 02/20/21 ferrous gluconate 324 mg (37.5 mg 324 mg PO DAILY 02/20/21 02/20/21 iron) tablet Previous Rx's Medication Instructions Recorded aspirin 81 mg tablet,delayed 81 mg PO DAILY 30 Days #60 tab 08/22/20 release metronidazole 500 mg tablet 500 mg PO BID 7 Days #14 tab 11/16/20 Allergies Allergy/AdvReac Type Severity Reaction Status Date / Time No Known Allergies Allergy Verified 12/14/20 11:10 Review of Systems Review of Systems: Pertinent positives and negatives as stated in the HPI and 10 point review of systems is otherwise negative. [facility] Past Medical History Source: nursing notes reviewed Medical History Anemia Bipolar disorder Depression Gestational diabetes Gestational diabetes Hematuria Kidney cysts Migraines Obesity (BMI 30-39.9) Surgical History No history of previous surgery Family History Family History Mother Hx of diabetes mellitus History of hypothyroidism Father Hx of coronary artery disease History of hypertension Maternal Grandfather Hx of diabetes mellitus Paternal Grandmother Hx of diabetes mellitus Maternal Grandfather Hx of coronary artery disease Paternal Grandfather No problems noted. Social History Social History Alcohol intake: never Smoking Status: Never smoker Advance Directives: No Physical Exam Vital Signs: Vital Signs: Last Vital Signs Temp 98.3 F 03/02/21 04:27 Pulse 83 03/02/21 06:00 Resp 18 03/02/21 06:00 BP 135/84 03/02/21 06:00 Pulse Ox 96 03/02/21 06:00 Body Mass Index 42.9 VITAL SIGNS: Reviewed. GENERAL: Well developed, well nourished, in no acute distress. HEAD: Normocephalic/atraumatic EYES: PERRLA, EOMI NOSE: Nares patent bilateral OROPHARYNX: no oral lesions noted, posterior pharynx clear NECK: Supple, no adenopathy LUNGS: Increased work of breathing noted, tachypnea positive, expiratory rhonchi with mild wheezing and rales noted SpO2<97> CARDIOVASCULAR: Regular rate and rhythm without noted murmurs, no JVD and + bilateral lower extremity edema. ABDOMEN: Soft, non-tender, non-distended with bowel sounds. NEUROLOGIC: Alert and oriented x 4. Course Course Course Narrative: 35-year-old female with history and clinical presentation concerning for cardiomyopathy, PE, pneumonia, COVID-19. On review of all investigations patient has new elevated BNP, normal TSH, chest x-ray with interstitial prominence and an elevated D-dimer. CTA of the chest was performed and found to be negative for PE, but again demonstrates mild pulmonary interstitial edema with small bilateral pleural effusions. All taken in its entirety this is most consistent with heart failure without evidence of thyroid involvement, or evidence to suggest HELLP. This case was discussed with [facility] and they are accepting the patient. Dr Sexton. MDM - SOB/Dyspnea Lab Data Result diagrams: 03/02/21 05:00 03/02/21 05:00 Labs: Lab Results 03/02/21 03/02/21 03/02/21 Range/Units 05:00 05:00 05:00 WBC 10.2 (4.8-10.8) X10*3/uL RBC 3.33 L (4.20-5.50) X10*6/uL Hgb 9.9 L (12.0-16.0) g/dl Hct 29.4 L (37-47) % MCV 88.3 (80-98) fL MCH 29.7 (27.0-33.0) pg MCHC 33.7 (31.0-35.0) g/dl RDW 14.9 (11.0-16.0) % Plt Count 362 (160-400) X10*3/uL MPV 9.2 L (9.4-12.3) fL Immature Gran % (Auto) 0.9 H (0.0-0.4) % Neut % (Auto) 70.6 (45-73) % Lymph % (Auto) 18.2 L (20-40) % Tillman % (Auto) 6.6 (2-11) % Eos % (Auto) 3.4 (0-4) % Baso % (Auto) 0.3 (0-2) % Lymph # (Auto) 1.9 (1.2-4.9) X10*3/uL Tillman # (Auto) 0.7 (0.1-1.2) X10*3/uL Eos # (Auto) 0.4 (0.0-0.4) X10*3/uL Baso # (Auto) 0.0 (0.0-0.2) X10*3/uL Abs Immat Gran (auto) 0.09 H (0.00-0.03) X10*3/uL Absolute Neuts (auto) 7.2 (2.0-8.3) X10*3/uL Absolute Nucleated RBC 0.000 (0.0-0.012) X10*3/uL Nucleated RBC % (auto) 0.0 (0.0-0.2) /100WBC D-Dimer 866 NG/ML Hold Blue Top SEE NOTE Sodium 141 (135-145) mmol/L Potassium 4.1 (3.3-5.1) mmol/L Chloride 108 (96-108) mmol/L Carbon Dioxide 23 (22-29) mmol/L Anion Gap 14 (12-20) BUN 7 L (9-16) mg/dL Creatinine 0.69 (0.5-1.4) mg/dL Estim Creat Clear Calc 139.1 Estimated GFR > 60 Random Glucose 83 (60-115) mg/dL Calcium 9.2 (8.4-10.2) mg/dL B-Natriuretic Peptide (<100) pg/mL TSH 3.18 (0.32-4.0) uIU/mL 03/02/21 Range/Units 05:00 WBC (4.8-10.8) X10*3/uL RBC (4.20-5.50) X10*6/uL Hgb (12.0-16.0) g/dl Hct (37-47) % MCV (80-98) fL MCH (27.0-33.0) pg MCHC (31.0-35.0) g/dl RDW (11.0-16.0) % Plt Count (160-400) X10*3/uL MPV (9.4-12.3) fL Immature Gran % (Auto) (0.0-0.4) % Neut % (Auto) (45-73) % Lymph % (Auto) (20-40) % Tillman % (Auto) (2-11) % Eos % (Auto) (0-4) % Baso % (Auto) (0-2) % Lymph # (Auto) (1.2-4.9) X10*3/uL Tillman # (Auto) (0.1-1.2) X10*3/uL Eos # (Auto) (0.0-0.4) X10*3/uL Baso # (Auto) (0.0-0.2) X10*3/uL Abs Immat Gran (auto) (0.00-0.03) X10*3/uL Absolute Neuts (auto) (2.0-8.3) X10*3/uL Absolute Nucleated RBC (0.0-0.012) X10*3/uL Nucleated RBC % (auto) (0.0-0.2) /100WBC D-Dimer NG/ML Hold Blue Top Sodium (135-145) mmol/L Potassium (3.3-5.1) mmol/L Chloride (96-108) mmol/L Carbon Dioxide (22-29) mmol/L Anion Gap (12-20) BUN (9-16) mg/dL Creatinine (0.5-1.4) mg/dL Estim Creat Clear Calc Estimated GFR Random Glucose (60-115) mg/dL Calcium (8.4-10.2) mg/dL B-Natriuretic Peptide 146 H (<100) pg/mL TSH (0.32-4.0) uIU/mL ECG Data Attestation: I personally reviewed and interpreted this ECG as follows: Interpretation: Also his rhythm, HR-73, no evidence of acute ischemia, LA/QRS/QTC are within normal limits. Discharge Plan Discharge Clinical Impression: CHF (congestive heart failure) Patient Disposition: Xfer [facility] Transfer Details: Specialty Services Prescriptions: No Action aspirin 81 mg tablet,delayed release (DR/EC) 81 mg PO DAILY 30 Days Qty: 60 RF: 7 metronidazole [Flagyl] 500 mg tablet 500 mg PO BID 7 Days Qty: 14 RF: 0 ferrous gluconate 324 mg (37.5 mg iron) tablet 324 mg PO DAILY RF: 0 Plus DHA 27 mg iron-1 mg -312 mg-250 mg combo pack PO RF: 0 (DME) lancets 28 gauge misc See Rx Instructions ea topical QID Qty: 100 RF: 0 (DME) blood-glucose meter Kit See Rx Instructions ea .ROUTE QID Qty: 1 RF: 0 (DME) FreeStyle Lite Strips Strip See Rx Instructions ea Not Applicable QID Qty: 10 RF: 0
[2021-03-02 08:49] LABS: Alanine Aminotransferase 8 U/L (0-31); Albumin Level 2.9 g/dL (3.5-5.0); Alkaline Phosphatase 75 U/L (39-117); Aspartate Amino Transferase 10 U/L (5-31); Bilirubin Direct 0.2 mg/dL (0.0-0.5); Bilirubin Total 0.5 mg/dL (0.0-1.0); Total Protein 5.6 g/dL (6.5-8.0)
[2021-03-02 08:58] LABS: Influenza A PCR NEGATIVE (Negative); Influenza B PCR NEGATIVE (Negative); Resp Syncy Virus RNA Qual PCR NEGATIVE (Negative); SARS COV2 PCR INHOUSE NEGATIVE (Negative)
[2021-03-02 09:41] LABS: Troponin-I High Sensitivity 5.9 ng/L (<3.5-17.0)
== END 2021-03-02 10:37 | disposition short-term general hospital (02) ==
PROVIDERS: Emergency Medicine; Emergency Provider Student in an Organized Health Care Education/Training Program
DX: I50.9 Heart failure, unspecified (principal); R06.02 Shortness of breath; Z20.822 Contact with and (suspected) exposure to COVID-19; Z79.899 Other long term (current) drug therapy; Z79.82 Long term (current) use of aspirin
CPT/HCPCS: 0241U; 36415; 71046; 71275; 80048; 80076; 83880; 84443; 84484; 85025; 85379; 93005; 99285; Q9967

== ENCOUNTER 2021-05-02 21:43 | Emergency (ER) | payer OTHER, SELFPAY ==
--- NOTE | ~2021-05-02 | XR_ITS ---
EXAMINATION: XR CHEST CLINICAL INFORMATION: Chest pain and shortness of breath COMPARISON: 03/02/2021 TECHNIQUE: Frontal view of the chest was obtained. FINDINGS: Since the prior study, there is been clearing of diffuse pulmonary airspace disease and interstitial edema. The heart size is normal. There is no longer upper zone redistribution. No infiltrates, effusions or lung masses are seen. XR/XR chest 1V IMPRESSION: Multiple abnormalities on the 03/02/2021 study have all resolved. The chest radiograph is now normal.
[2021-05-02 21:54] VITALS: BP 127/84; PULSE 79; RESP 18; TEMP 36.7; O2SAT 100; BMI 39.9
--- NOTE | 2021-05-02 21:59 | ECG_ITS ---
Test Reason : CHEST PAIN Blood Pressure : / mmHG Vent. Rate : 069 BPM Atrial Rate : 069 BPM P-R Int : 136 ms QRS Dur : 092 ms QT Int : 386 ms P-R-T Axes : 014 055 013 degrees QTc Int : 413 ms Normal sinus rhythm RSR' or QR pattern in V1 suggests right ventricular conduction delay Borderline ECG When compared with ECG of 02-MAR-2021 07:11, No significant change was found Referred By: Generic ED Physician Electronically Signed By:David Cooper
--- NOTE | 2021-05-02 22:41 | PC.NURSE ---
patient came into triage office and stated that she had to leave because of her baby at home, she stated after the baby is sleeping she will return to be seen, this nurse encouraged the patient to stay however she is unable to do so at this time. patient was speaking in full sentences, no sob noted.
== END 2021-05-02 22:43 | disposition left against medical advice (07) ==
PROVIDERS: Emergency Provider Emergency Medicine; PCP Internal Medicine
DX: R06.02 Shortness of breath (principal); R07.9 Chest pain, unspecified
CPT/HCPCS: 71045; 93005; 99283

== ENCOUNTER → 2021-06-07 12:54 | Outpatient (REF) | payer OTHER, SELFPAY ==
--- NOTE | 2021-06-07 12:59 | CA_ITS ---
Transthoracic Echocardiogram Patient (Last, First, Middle): Deion Leslie, Gender: Female Date of : 1985 Age: 35 Procedure Date: 06/07/2021 Procedure Type: Transthoracic Echocardiogram Location: OP Height: 162.56 cm Weight: 99.79 kg BSA: 2.04 m2 Heart Rate: bpm BP: 120 / 60 mmHg Telegraph Operator: CARMEN Referring MD: Martha Raya MD Symptoms: Z86.79 - Personal history of other diseases of the circul... Study Quality: Fair ECG Rhythm: Sinus Conclusions: - The left ventricular systolic function is normal. The visually estimated ejection fraction is between 55-60%. - The inferoseptal wall, the basal inferior, and basal inferolateral segments are hypokinetic. - Evidence suggests grade II (moderate) diastolic dysfunction. - The mitral valve appears rheumatic. There is mild to moderate mitral valve regurgitation. - Mild pulmonary hypertension is present. Findings Left Ventricle Normal left ventricular cavity size. There is normal left ventricular wall thickness. The left ventricular systolic function is normal. The visually estimated ejection fraction is between 55-60%. There is no evidence of regional wall motion abnormalities. E/E prime ratio is >15, consistent with elevated filling pressures. Evidence suggests grade II (moderate) diastolic dysfunction. Wall Motion Rest Echo Findings The inferoseptal wall, the basal inferior, and basal inferolateral segments are hypokinetic. Right Ventricle Normal right ventricular cavity size and systolic function. Atria Both atria are normal in size. Aortic Valve There is a normal trileaflet aortic valve. There is no aortic valve stenosis. There is no aortic valve regurgitation. Mitral Valve The mitral valve appears rheumatic. There is mild anterior mitral leaflet thickening. The posterior mitral leaflet has restricted mobility. There is mild to moderate mitral valve regurgitation. Mean gradient across the mitral valve 5 mm at 69/Min. Mitral valve area by pressure half time 2.8 sq cm. Visually, the valve seems to be opening well. Doubt any significant mitral stenosis. Pulmonic Valve The pulmonic valve was not well visualized. Tricuspid Valve Normal tricuspid valve structure. There is trace tricuspid valve regurgitation. The right ventricular systolic pressure is 38 mmHg. Mild pulmonary hypertension is present. Great Vessels The aortic annulus, sinuses of valsalva, and asc aorta are normal in size. Venous The inferior vena cava is normal in size and collapses greater than 50% with inspiration. Pericardium/Pleural There is no evidence of pericardial effusion. Prior Study Comparison No prior study available for comparison. Measurements 2D Linear Measurements IVSd: 1.02 0.6-0.9/0.6-1.0 cm LVIDd: 4.75 3.9-5.3/4.2-5.9 cm LVIDd Index: 2.33 2.4-3.2/2.2-3.1 cm/m2 LVIDs: 3.23 2.0-3.6 cm LVPWd: 0.91 0.7-1.1 cm Ao Root: 2.80 2.1-3.5 cm LA Diam: 3.60 2.7-3.8/3.0-4.0 cm LAIDs Index: 1.76 1.5-2.3 cm/m2 LV Mass: 198.68 67-162/88-224 g LV Mass Index: 97.39 43-95/49-115 g/m2 LVOT Diam: 2.00 3.0+(-)1.3 cm 2D Systolic Function EF 4C: 54.60 >55% EF 2C: 55.00 >55% EF BiP: 54.10 >55% Mitral Valve MV VTI: 0.49 MV Pk Bart: 1.88 MV Mn Bart: 1.07 MV Pk Grad: 14.00 MV Mn Grad: 5.00 MV Pk E: 1.52 MV PK A: 1.14 MV Decel Time: 307.00 E/A: 1.30 E'Lateral: 8.70 E'Medial: 8.05 E/E' Med: 18.90 E/E' Lat: 17.50 PHT: 76.00 MVA PHT: 2.89 MVA Continuity: 1.44 Decel [place]: 7.40 Aortic Valve AoV Pk Bart: 1.55 AoV Mn Bart: 1.14 AoV VTI: 0.33 AoV Pk Grad: 10.00 Aov Mn Grad: 6.00 PITA Cont.VTI: 2.10 LVOT LVOT Pk Bart: 0.98 LVOT Mn Bart: 0.64 LVOT VTI: 0.22 LVOT Pk Grad: 4.00 LVOT Mn Grad: 2.00 LVOT Diam: 2.00 LVOT Area: 3.14 Diastolic Function MV Pk E: 1.52 MV Pk A: 1.14 E/A: 1.30 E'Medial: 8.05 E/E' Med: 18.90 E' Laterial: 8.70 E/E' Lat: 17.50 Right Ventricle TAPSE (mm): 2.86 Tricuspid Valve TR Pk Bart: 2.95 TR Pk Grad: 35.00 RA Press: 3.00 RVSP: 38.00 Great Vessels Aorta Ao Root-2D: 2.80 2.0-3.7 cm Ao Asc: 2.70 2.1-3.4 cm Ao Arch: 2.60 Updated in Other Vendor System with Status of Final Juan Benitez MD electronically signed on 06/09/2021 1:07:48 PM with status of Final
== END ==
LOC: HO.CARD 12:54
PROVIDERS: PCP Internal Medicine; Visit Provider Internal Medicine
DX: R06.02 Shortness of breath (principal); R94.31 Abnormal electrocardiogram [ECG] [EKG]; Z86.79 Personal history of other diseases of the circulatory system
CPT/HCPCS: 93306

== ENCOUNTER 2021-06-18 10:06 | Outpatient (REF) | payer OTHER, SELFPAY ==
[2021-06-18 12:11] LABS: Anion Gap 13 (12-20); Blood Urea Nitrogen 12 mg/dL (9-16); Calcium 10.5 mg/dL (8.4-10.2); Carbon Dioxide 24 mmol/L (22-29); Chloride 106 mmol/L (96-108); Estimated Glomerular Filt Rate > 60; Glucose Random 139 mg/dL (60-115); Potassium 4.6 mmol/L (3.3-5.1); Sodium 138 mmol/L (135-145)
[2021-06-18 12:15] LABS: B Type Natriuretic Peptide 12 pg/mL (<100)
== END 2021-06-18 10:07 | disposition home or self-care (01) ==
LOC: HO.LAB 10:06
PROVIDERS: PCP Internal Medicine; Referring Provider Internal Medicine; Visit Provider Internal Medicine
DX: I05.2 Rheumatic mitral stenosis with insufficiency (principal); I27.20 Pulmonary hypertension, unspecified; E66.01 Morbid (severe) obesity due to excess calories; I50.32 Chronic diastolic (congestive) heart failure
CPT/HCPCS: 36415; 80048; 83880; 99202

== ENCOUNTER 2021-07-11 15:39 | Outpatient (REF) | payer OTHER, SELFPAY | END 2021-07-11 15:40 | disposition home or self-care (01) | LOC: HO.LAB 15:39 | PROVIDERS: PCP Internal Medicine; Visit Provider Internal Medicine | DX: Z20.822 Contact with and (suspected) exposure to COVID-19 (principal) | CPT/HCPCS: U0003; U0005 ==

== ENCOUNTER → 2021-09-24 10:30 | Outpatient (BNVA) | payer OTHER, SELFPAY | PROVIDERS: PCP Internal Medicine; Referring Provider Internal Medicine; Visit Provider Internal Medicine | DX: I50.32 Chronic diastolic (congestive) heart failure (principal); I05.2 Rheumatic mitral stenosis with insufficiency; I27.20 Pulmonary hypertension, unspecified; E66.01 Morbid (severe) obesity due to excess calories; R00.2 Palpitations; Z68.39 Body mass index [BMI] 39.0-39.9, adult | CPT/HCPCS: 99212 ==

== ENCOUNTER → 2021-10-26 07:06 | Outpatient (REF) | payer OTHER, SELFPAY ==
--- NOTE | 2021-10-26 07:13 | HM_ITS ---
Conclusion : 1. Patient was monitored for a total perior of 6 days and 23 hours 2. Baseline rhythm is NSR with average HR of 95 bpm 3. Frequent sinus tachycardia noted with 39% of time HR > 100 bpm 4. No significant dysrhythmias noted 5. No patient reported events MTDD
== END ==
LOC: HO.CARD 07:06
PROVIDERS: PCP Internal Medicine; Visit Provider Internal Medicine
DX: I49.8 Other specified cardiac arrhythmias (principal); R00.2 Palpitations
CPT/HCPCS: 93242

== ENCOUNTER → 2022-01-30 10:34 | Outpatient (BNVA) | payer OTHER, SELFPAY | PROVIDERS: PCP Internal Medicine; Referring Provider Internal Medicine; Visit Provider Internal Medicine | DX: I05.2 Rheumatic mitral stenosis with insufficiency (principal); I50.32 Chronic diastolic (congestive) heart failure; I27.20 Pulmonary hypertension, unspecified; E66.01 Morbid (severe) obesity due to excess calories; Z68.39 Body mass index [BMI] 39.0-39.9, adult | CPT/HCPCS: 99212 ==

== ENCOUNTER 2022-03-13 19:26 | Emergency (ER) | payer OTHER, SELFPAY ==
--- NOTE | ~2022-03-13 | CT_ITS ---
EXAMINATION: CT ABDOMEN AND PELVIS WITH CONTRAST CLINICAL INFORMATION: Diffuse abdominal pain COMPARISON: 07/29/2019 TECHNIQUE: Multidetector volumetric images were obtained from the superior aspect of the liver through the pubic symphysis following administration 100 mL of Omnipaque 350 intravenous contrast. Sagittal and coronal reformatted images were obtained on the technologist's workstation. Oral contrast: No This CT examination was performed using dose optimization techniques as appropriate, variously including the following: *Automated exposure control *Adjustment of mA and/or kV according to patient size (this includes techniques or standardized protocols for targeted exams where dose is matched to indication/reason for exam; i.e. extremities or head) *Use of iterative reconstruction technique DLP: 1190 mGy-cm FINDINGS: LUNG BASES: The visualized lung bases are unremarkable. LIVER, GALLBLADDER, AND BILIARY TREE: The liver is normal in size, shape, and attenuation. No focal hepatic lesion or biliary ductal dilatation is present. The gallbladder is unremarkable with no evidence of radiopaque gallstones, gallbladder wall thickening, or obvious pericholecystic inflammatory changes. PANCREAS: Unremarkable. SPLEEN: Unremarkable. ADRENAL GLANDS: Unremarkable. KIDNEYS AND URETERS: Bilateral nephrograms are symmetric. No hydronephrosis or obstructing calculus identified. A few hypoattenuating bilateral renal lesions are most consistent with cysts; no follow-up recommended. BLADDER: Unremarkable. GASTROINTESTINAL TRACT: No evidence of bowel obstruction. No abnormal bowel wall thickening is seen. Appendix appears nondilated. No free fluid or free air is seen. ABDOMINAL WALL: No significant hernia is appreciated. LYMPH NODES: Normal. VASCULAR: Unremarkable. PELVIC VISCERA: Unremarkable. OSSEOUS STRUCTURES: Scattered degenerative changes are present in the spine. CT/CT abdomen pelvis w con IMPRESSION: No acute findings identified in the abdomen/pelvis. Fleischner guidelines were followed.
--- NOTE | ~2022-03-13 | XR_ITS ---
EXAMINATION: XR ABDOMEN KUB CLINICAL INDICATION: Constipation COMPARISON: None TECHNIQUE: AP view of the abdomen. FINDINGS: Nonobstructive bowel pattern. Mild colonic stool. XR/XR KUB IMPRESSION: Only mild colonic stool. Nonobstructive bowel pattern
[2022-03-13 21:20] VITALS: BP 108/70; PULSE 97; RESP 18; TEMP 36.9; O2SAT 98; BMI 40.3
[2022-03-13] MEDS: Acetaminophen 325 MG TABLET 975 MG PO (21:35)
[2022-03-13 21:50] LABS: Appearance Urine CLEAR; Color Urine YELLOW; Glucose Urine UA NEG (NEG); Leukocyte Esterase Urine NEG (NEG); Nitrite Urine NEG (NEG); PH 5.5 (5.0-8.0); Specific Gravity - Urine 1.025 (1.005-1.025); UACC Culture Trigger NO; Urine Blood 2+ (NEG); Urine Ketones NEG (NEG); Urine Protein NEG (NEG-TRACE)
[2022-03-13 21:52] LABS: UPreg QC Valid YES; Urine Pregnancy NEGATIVE (NEGATIVE)
[2022-03-13 21:53] LABS: MANUAL DIFF FLAG NO
[2022-03-13 21:55] LABS: Basophils Absolute Auto 0.1 X10*3/uL (0.0-0.2); Basophils Percent Auto 0.3 % (0-2); Eosinophils Absolute Auto 0.3 X10*3/uL (0.0-0.4); Eosinophils Percent Auto 1.8 % (0-4); Hematocrit 40.8 % (37.0-47.0); Hemoglobin 13.6 g/dl (12.0-16.0); Imm Gran Abs Auto 0.05 X10*3/uL (0.00-0.03); Imm Gran Pct Auto 0.3 % (0.0-0.4); Lymphocytes Absolute Auto 2.8 X10*3/uL (1.2-4.9); Lymphocytes Percent Auto 15.2 % (20-40); Mean Corpuscular HGB Conc 33.3 g/dl (31.0-35.0); Mean Corpuscular Hemoglobin 27.6 pg (27.0-33.0); Mean Corpuscular Volume 82.8 fL (80.0-98.0); Mean Platelet Volume 9.3 fL (9.4-12.3); Monocytes Absolute Auto 0.9 X10*3/uL (0.1-1.2); Neutrophils Absolute Auto 14.3 x10*3/uL (2.0-8.3); Neutrophils Percent Auto 77.4 % (45-73); Platelet Count 427 X10*3/uL (160-400); Red Blood Count 4.93 X10*6/uL (4.20-5.50); Red Cell Distribution Width 14.2 % (11.0-16.0); White Blood Count 18.4 X10*3/uL (4.8-10.8)
[2022-03-13 21:57] LABS: Bacteria Urine 1+ /LPF; Squamous Epithelial Cell Urine 1+ /LPF; WBC Urine 0 /HPF (0-4)
[2022-03-13 22:08] VITALS: BP 124/63; PULSE 81; RESP 19; TEMP 37.2; O2SAT 97
[2022-03-13 22:09] LABS: Alanine Aminotransferase 12 U/L (0-31); Albumin Level 4.2 g/dL (3.5-5.0); Alkaline Phosphatase 72 U/L (39-117); Anion Gap 12 (12-20); Aspartate Amino Transferase 8 U/L (5-31); Bilirubin Total 0.3 mg/dL (0.0-1.0); Blood Urea Nitrogen 10 mg/dL (9-16); Calcium 10.3 mg/dL (8.4-10.2); Carbon Dioxide 21 mmol/L (22-29); Chloride 107 mmol/L (96-108); Creatinine Clr Calc Pharmacy 123.4; Estimated Glomerular Filt Rate > 60; Glucose Random 175 mg/dL (60-115); Potassium 3.9 mmol/L (3.3-5.1); Sodium 136 mmol/L (135-145); Total Protein 7.5 g/dL (6.5-8.0)
--- NOTE | 2022-03-13 22:16 | ED_ITS ---
HPI - Abdominal Pain General Chief Complaint: Abdominal Pain Stated Complaint: severe abdominal pain, colitis? Time Seen by Provider: 03/13/22 22:07 Source: patient Mode of arrival: ambulatory Limitations: no limitations History of Present Illness HPI narrative: Patient comes emergency room complaining of diffuse abdominal pain. Patient states that she has been unable to have any bowel movements since this morning. Patient states that in the afternoon, probably 4-5 hours ago she started having bloating, diffuse abdominal pain, obstipation. No nausea or vomiting. No past surgical history in the abdomen. Related Data Previous Rx's Medication Instructions Recorded escitalopram oxalate 10 mg tablet 10 mg PO DAILY 90 Days #90 tab 11/19/21 furosemide 20 mg tablet (Lasix) 20 mg PO DAILY #90 tab 01/30/22 polyethylene glycol 3350 17 17 g PO BID #510 g 03/14/22 gram/dose oral powder (ClearLax) Allergies Allergy/AdvReac Type Severity Reaction Status Date / Time No Known Allergies Allergy Verified 03/13/22 21:22 Review of Systems Review of Systems Constitutional : No Weight loss, No Fever, No Chills, No Night Sweats, No Fatigu e, No Malaise ENT/Mouth : No Hearing loss, No Ear Pain, No Nasal Congestion, No Sinus Pain, No Hoarseness, No sore throat, No Rhinorrhea, No Swallowing Difficulty Eyes: No Eye Pain, No Swelling, No Redness, No Foreign Body, No Discharge, No Vision Changes Cardiovascular : No Chest Pain, No SOB, No Dyspnea on Exertion, No Orthopnea, No Edema, No Palpitations Respiratory : No Cough, No Sputum, No Wheezing, No Smoke Exposure, No Dyspnea Gastrointestinal : No Nausea, No Vomiting, No Diarrhea, complaining of constipation, diffuse abdominal distention and pain Genitourinary : no irregular bleeding, No Dysuria, No Urinary Frequency, No Hematuria, No Urinary Incontinence, No Urgency, No Flank Pain, No Urinary Flow Changes, No Hesitancy Musculoskeletal : No joint pain, No Myalgias, No Joint Swelling Skin : No Skin Lesions, No rash Neuro : No Weakness, No Numbness, No Paresthesias, No Loss of Consciousness, No Dizziness, No Headache Psych : No Anxiety/Panic, No Depression, No SI/HI/AH/VH, No Social Issues, Heme/Lymph: No Bruising, No Bleeding,No Lymphadenopathy Endocrine : No Polyuria, No Polydipsia, No Temperature Intolerance [facility] Past Medical History Medical History Anemia Bipolar disorder Chronic diastolic congestive heart failure Depression Gestational diabetes Gestational diabetes Hematuria Kidney cysts Migraines Mitral valve prolapse Obesity (BMI 30-39.9) Surgical History No history of previous surgery Family History Family History Mother Hx of diabetes mellitus History of hypothyroidism Father Hx of coronary artery disease History of hypertension Maternal Grandfather Hx of diabetes mellitus Paternal Grandmother Hx of diabetes mellitus Maternal Grandfather Hx of coronary artery disease Paternal Grandfather No problems noted. Other Mental health disorder Social History Social History Housing: Apartment Alcohol intake: never Patient Tobacco Use Status: Never used Tobacco Second Hand Smoke Exposure: Yes Use of substances other than those prescribed or required for medical reasons: No Advance Directives: No Current occupational status: unemployed Physical Exam ED Vital Signs: Vital Signs - 24 hr 03/13/22 21:20 03/13/22 22:08 03/13/22 23:35 Temperature 98.4 F 99 F 99.3 F Pulse Rate 97 81 75 Respiratory Rate 18 19 16 Blood Pressure 108/70 124/63 107/62 Pulse Oximetry 98 97 97 03/13/22 23:40 Temperature Pulse Rate 72 Respiratory Rate 16 Blood Pressure 107/62 Pulse Oximetry BMI result Body Mass Index 40.3 Const Other: Appearance: Alert. Oriented X3. No acute distress. Eyes: Pupils equal, round and reactive to light. ENT: Pharynx normal. Neck: Normal inspection. Neck supple. No lymph nodes noted. No crepitus CVS: Normal heart rate and rhythm. Pulses normal. Normal S1 and S2 Respiratory: No respiratory distress. Breath sounds normal. No Wheezing. No rales Abdomen: Soft , exaggerated response to minimal pressure/palpation throughout the abdomen Skin: Skin warm and dry. Normal skin color. Normal skin turgor. Extremities: No lower extremity edema. No Lacerations. No Rash Neuro: Oriented X 3. No motor deficit. No sensory deficit. Moving all extremities. No slurred speech. CN 2 through 12 grossly intact Psych: calm, cooperative, normal affect Course Course Course Narrative: Patient states she has history of colitis, states he feels about the same. CT scan pending. CT scan shows constipation, discussed with the patient. Patient does not take any medications for constipation at home. MDM - Abdominal Pain Lab Data Result diagrams: 03/13/22 21:49 03/13/22 21:49 Labs: Lab Results 03/13/22 03/13/22 03/13/22 Range/Units 21:36 21:40 21:49 WBC 18.4 H (4.8-10.8) X10*3/uL RBC 4.93 (4.20-5.50) X10*6/uL Hgb 13.6 (12.0-16.0) g/dl Hct 40.8 (37.0-47.0) % MCV 82.8 (80.0-98.0) fL MCH 27.6 (27.0-33.0) pg MCHC 33.3 (31.0-35.0) g/dl RDW 14.2 (11.0-16.0) % Plt Count 427 H (160-400) X10*3/uL MPV 9.3 L (9.4-12.3) fL Immature Gran % (Auto) 0.3 (0.0-0.4) % Neut % (Auto) 77.4 H (45-73) % Lymph % (Auto) 15.2 L (20-40) % [place] % (Auto) 5.0 (2-11) % Eos % (Auto) 1.8 (0-4) % Baso % (Auto) 0.3 (0-2) % Lymph # (Auto) 2.8 (1.2-4.9) X10*3/uL [place] # (Auto) 0.9 (0.1-1.2) X10*3/uL Eos # (Auto) 0.3 (0.0-0.4) X10*3/uL Baso # (Auto) 0.1 (0.0-0.2) X10*3/uL Abs Immat Gran (auto) 0.05 H (0.00-0.03) X10*3/uL Absolute Neuts (auto) 14.3 H (2.0-8.3) x10*3/uL Absolute Nucleated RBC 0.000 (0.0-0.012) X10*3/uL Nucleated RBC % (auto) 0.0 (0.0-0.2) /100WBC Sodium (135-145) mmol/L Potassium (3.3-5.1) mmol/L Chloride (96-108) mmol/L Carbon Dioxide (22-29) mmol/L Anion Gap (12-20) BUN (9-16) mg/dL Creatinine (0.5-1.4) mg/dL Estim Creat Clear Calc Estimated GFR Random Glucose (60-115) mg/dL Calcium (8.4-10.2) mg/dL Total Bilirubin (0.0-1.0) mg/dL AST (5-31) U/L ALT (0-31) U/L Alkaline Phosphatase (39-117) U/L Total Protein (6.5-8.0) g/dL Albumin (3.5-5.0) g/dL Urine Color YELLOW Urine Appearance CLEAR Urine pH 5.5 (5.0-8.0) Ur Specific Bradley 1.025 (1.005-1.025) Urine Protein NEG (NEG-TRACE) MG/DL Urine Glucose (UA) NEG (NEG) MG/DL Urine Ketones NEG (NEG) MG/DL Urine Blood 2+ H (NEG) Urine Nitrite NEG (NEG) Ur Leukocyte Esterase NEG (NEG) Urine RBC 1-4 (0) /HPF Urine WBC 0 (0-4) /HPF Ur Squamous Epith Cells 1+ /LPF Urine Bacteria 1+ /LPF Urine Test NEGATIVE (NEGATIVE) 03/13/22 Range/Units 21:49 WBC (4.8-10.8) X10*3/uL RBC (4.20-5.50) X10*6/uL Hgb (12.0-16.0) g/dl Hct (37.0-47.0) % MCV (80.0-98.0) fL MCH (27.0-33.0) pg MCHC (31.0-35.0) g/dl RDW (11.0-16.0) % Plt Count (160-400) X10*3/uL MPV (9.4-12.3) fL Immature Gran % (Auto) (0.0-0.4) % Neut % (Auto) (45-73) % Lymph % (Auto) (20-40) % [place] % (Auto) (2-11) % Eos % (Auto) (0-4) % Baso % (Auto) (0-2) % Lymph # (Auto) (1.2-4.9) X10*3/uL [place] # (Auto) (0.1-1.2) X10*3/uL Eos # (Auto) (0.0-0.4) X10*3/uL Baso # (Auto) (0.0-0.2) X10*3/uL Abs Immat Gran (auto) (0.00-0.03) X10*3/uL Absolute Neuts (auto) (2.0-8.3) x10*3/uL Absolute Nucleated RBC (0.0-0.012) X10*3/uL Nucleated RBC % (auto) (0.0-0.2) /100WBC Sodium 136 (135-145) mmol/L Potassium 3.9 (3.3-5.1) mmol/L Chloride 107 (96-108) mmol/L Carbon Dioxide 21 L (22-29) mmol/L Anion Gap 12 (12-20) BUN 10 (9-16) mg/dL Creatinine 0.77 (0.5-1.4) mg/dL Estim Creat Clear Calc 123.4 Estimated GFR > 60 Random Glucose 175 H (60-115) mg/dL Calcium 10.3 H (8.4-10.2) mg/dL Total Bilirubin 0.3 (0.0-1.0) mg/dL AST 8 (5-31) U/L ALT 12 (0-31) U/L Alkaline Phosphatase 72 (39-117) U/L Total Protein 7.5 D (6.5-8.0) g/dL Albumin 4.2 D (3.5-5.0) g/dL Urine Color Urine Appearance Urine pH (5.0-8.0) Ur Specific Bradley (1.005-1.025) Urine Protein (NEG-TRACE) MG/DL Urine Glucose (UA) (NEG) MG/DL Urine Ketones (NEG) MG/DL Urine Blood (NEG) Urine Nitrite (NEG) Ur Leukocyte Esterase (NEG) Urine RBC (0) /HPF Urine WBC (0-4) /HPF Ur Squamous Epith Cells /LPF Urine Bacteria /LPF Urine Test (NEGATIVE) Imaging Data CT scan - abdomen: Radiologist's impression: FINDINGS: LUNG BASES: The visualized lung bases are unremarkable.? LIVER, GALLBLADDER, AND BILIARY TREE: The liver is normal in size, shape, and attenuation. No focal hepatic lesion or biliary ductal dilatation is present. The gallbladder is unremarkable with no evidence of radiopaque gallstones, gallbladder wall thickening, or obvious pericholecystic inflammatory changes.? PANCREAS: Unremarkable.? SPLEEN: Unremarkable.? ADRENAL GLANDS: Unremarkable.? KIDNEYS AND URETERS: Bilateral nephrograms are symmetric. No hydronephrosis or obstructing calculus identified. A few hypoattenuating bilateral renal lesions are most consistent with cysts; no follow-up recommended. BLADDER: Unremarkable.? GASTROINTESTINAL TRACT: No evidence of bowel obstruction. No abnormal bowel wall thickening is seen. Appendix appears nondilated. No free fluid or free air is seen. ABDOMINAL WALL: No significant hernia is appreciated.? LYMPH NODES: Normal. VASCULAR: Unremarkable. PELVIC VISCERA: Unremarkable.? OSSEOUS STRUCTURES: Scattered degenerative changes are present in the spine.? CT/CT abdomen pelvis w con IMPRESSION: No acute findings identified in the abdomen/pelvis.? Discharge Plan Discharge Clinical Impression: Constipation Patient Disposition: Home, Self-Care Instructions: Constipation (ED) Additional Instructions: Please follow-up with your primary care physician tomorrow. If you have any worsening or new symptoms, please return to the emergency room or call 911 Prescriptions: New polyethylene glycol 3350 [ClearLax] 17 gram/dose powder 17 g PO BID Qty: 510 0RF No Action escitalopram oxalate 10 mg tablet 10 mg PO DAILY 90 Days Qty: 90 0RF furosemide [Lasix] 20 mg tablet 20 mg PO DAILY Qty: 90 1RF
[2022-03-13] MEDS: iohexoL 350 MG/ML 100 ML INFUS..BTL IV (22:51)
[2022-03-13 23:35] VITALS: BP 107/62; PULSE 75; RESP 16; TEMP 37.4; O2SAT 97
[2022-03-13 23:40] VITALS: BP 107/62; PULSE 72; RESP 16
[2022-03-14 00:50] VITALS: BP 100/55; PULSE 69; RESP 14; TEMP 37.1; O2SAT 94
== END 2022-03-14 01:18 | disposition home or self-care (01) ==
PROVIDERS: Emergency Provider Emergency Medicine; PCP Internal Medicine
DX: K59.00 Constipation, unspecified (principal); I50.32 Chronic diastolic (congestive) heart failure
CPT/HCPCS: 36415; 74018; 74177; 80053; 81001; 81025; 85025; 99284; 99285; Q9967

== ENCOUNTER 2022-04-16 09:48 | Outpatient (REF) | payer OTHER, SELFPAY ==
[2022-04-16 11:35] LABS: MANUAL DIFF FLAG NO
[2022-04-16 11:43] LABS: Basophils Percent Auto 0.4 % (0-2); Eosinophils Absolute Auto 0.3 X10*3/uL (0.0-0.4); Eosinophils Percent Auto 2.8 % (0-4); Hematocrit 39.1 % (37.0-47.0); Hemoglobin 13.2 g/dl (12.0-16.0); Imm Gran Abs Auto 0.04 X10*3/uL (0.00-0.03); Imm Gran Pct Auto 0.4 % (0.0-0.4); Lymphocytes Absolute Auto 2.4 X10*3/uL (1.2-4.9); Lymphocytes Percent Auto 26.5 % (20-40); Mean Corpuscular HGB Conc 33.8 g/dl (31.0-35.0); Mean Corpuscular Hemoglobin 28.1 pg (27.0-33.0); Mean Corpuscular Volume 83.4 fL (80.0-98.0); Mean Platelet Volume 9.8 fL (9.4-12.3); Monocytes Absolute Auto 0.5 X10*3/uL (0.1-1.2); Monocytes Percent Auto 5.7 % (2-11); Neutrophils Absolute Auto 5.7 x10*3/uL (2.0-8.3); Neutrophils Percent Auto 64.2 % (45-73); Platelet Count 413 X10*3/uL (160-400); Red Blood Count 4.69 X10*6/uL (4.20-5.50); Red Cell Distribution Width 14.4 % (11.0-16.0); White Blood Count 8.9 X10*3/uL (4.8-10.8)
[2022-04-16 12:15] LABS: Estimated Average Glucose 120 mg/dL; Hemoglobin A1C 142.4109 umol/L; Hemoglobin A1c % 5.8 %
[2022-04-18 00:02] LABS: LDL Cholesterol Direct 108 mg/dL (<100)
== END 2022-04-16 09:49 | disposition home or self-care (01) ==
LOC: HO.HMGCLDS 09:48
PROVIDERS: PCP Internal Medicine; Visit Provider Internal Medicine
DX: Z00.01 Encounter for general adult medical examination with abnormal findings (principal); I50.32 Chronic diastolic (congestive) heart failure; I27.20 Pulmonary hypertension, unspecified; E66.01 Morbid (severe) obesity due to excess calories; D64.9 Anemia, unspecified
CPT/HCPCS: 36415; 83036; 83721; 85025

== ENCOUNTER → 2022-08-20 08:23 | Outpatient (BNVA) | payer OTHER, SELFPAY | PROVIDERS: PCP Internal Medicine; Referring Provider Internal Medicine; Visit Provider Physician Assistant Surgical | DX: Z11.0 Encounter for screening for intestinal infectious diseases (principal) | CPT/HCPCS: 99211 ==

== ENCOUNTER 2022-08-20 16:46 | Outpatient (REF) | payer OTHER, SELFPAY ==
[2022-08-21 13:54] LABS: H Pylori Breath Test Negative (Negative)
== END 2022-08-20 16:47 | disposition home or self-care (01) ==
LOC: HO.LNP 16:46
PROVIDERS: Visit Provider Surgery
DX: E66.01 Morbid (severe) obesity due to excess calories (principal); I05.2 Rheumatic mitral stenosis with insufficiency; I27.20 Pulmonary hypertension, unspecified; I50.32 Chronic diastolic (congestive) heart failure
CPT/HCPCS: 83013

== ENCOUNTER 2022-08-21 07:41 | Outpatient (REF) | payer OTHER, SELFPAY ==
[2022-08-21 07:59] LABS: MANUAL DIFF FLAG NO
[2022-08-21 08:45] LABS: Basophils Absolute Auto 0.1 X10*3/uL (0.0-0.2); Basophils Percent Auto 0.7 % (0-2); Eosinophils Absolute Auto 0.3 X10*3/uL (0.0-0.4); Eosinophils Percent Auto 3.9 % (0-4); Hematocrit 40.3 % (37.0-47.0); Hemoglobin 13.7 g/dl (12.0-16.0); Imm Gran Abs Auto 0.03 X10*3/uL (0.00-0.03); Imm Gran Pct Auto 0.3 % (0.0-0.4); Lymphocytes Absolute Auto 2.6 X10*3/uL (1.2-4.9); Lymphocytes Percent Auto 29.2 % (20-40); Mean Corpuscular Hemoglobin 28.6 pg (27.0-33.0); Mean Corpuscular Volume 84.1 fL (80.0-98.0); Mean Platelet Volume 9.6 fL (9.4-12.3); Monocytes Absolute Auto 0.6 X10*3/uL (0.1-1.2); Monocytes Percent Auto 6.6 % (2-11); Neutrophils Absolute Auto 5.2 x10*3/uL (2.0-8.3); Neutrophils Percent Auto 59.3 % (45-73); Platelet Count 417 X10*3/uL (160-400); Red Blood Count 4.79 X10*6/uL (4.20-5.50); Red Cell Distribution Width 13.9 % (11.0-16.0); White Blood Count 8.8 X10*3/uL (4.8-10.8)
[2022-08-21 08:53] LABS: Estimated Average Glucose 114 mg/dL; Hemoglobin A1c % 5.6 %
[2022-08-21 09:14] LABS: Alanine Aminotransferase 13 U/L (0-31); Albumin Level 4.2 g/dL (3.5-5.0); Alkaline Phosphatase 72 U/L (39-117); Anion Gap 17 (12-20); Aspartate Amino Transferase 11 U/L (5-31); Bilirubin Total 0.3 mg/dL (0.0-1.0); Blood Urea Nitrogen 14 mg/dL (9-16); C Reactive Protein 0.79 mg/dL (< or = 0.50); Calcium 10.1 mg/dL (8.4-10.2); Carbon Dioxide 23 mmol/L (22-29); Chloride 104 mmol/L (96-108); Cholesterol 138 mg/dL; Estimated Glomerular Filt Rate > 60; Glucose Random 110 mg/dL (60-115); HDL Cholesterol 33 mg/dL; Iron 57 mcg/dL (30-160); LDL Cholesterol Calculated 70 mg/dl; Percent Iron Saturation 16 % (15-50); Potassium 4.6 mmol/L (3.3-5.1); Sodium 139 mmol/L (135-145); Total Iron Binding Capacity 362 mcg/dL (228-428); Total Protein 7.6 g/dL (6.5-8.0); Triglycerides 177 mg/dL; Unsaturated Iron Binding 305 ug/dL
[2022-08-21 09:38] LABS: Ferritin 69 ng/mL (10-122); Insulin 18 uU/mL (2-29); TSH reflex Free T4 1.51 uIU/mL (0.32-4.0); Vitamin D 25-OH Total 17.1 ng/mL (>30)
[2022-08-21 10:00] LABS: Folate 16.3 ng/mL (> or = 4.0); Vitamin B12 307 pg/mL (200-900)
[2022-08-22 13:21] LABS: Calcium (PTHI) 10.3 mg/dL (8.6-10.2); PTHI 90 pg/mL (16-77)
[2022-08-26 19:53] LABS: Zinc 69 mcg/dL (60-130)
[2022-08-27 16:51] LABS: Vitamin B1 13 nmol/L (8-30)
[2022-08-27 19:16] LABS: Vitamin A 42 mcg/dL (38-98)
== END 2022-08-21 07:42 | disposition home or self-care (01) ==
LOC: HO.LAB 07:41
PROVIDERS: PCP Internal Medicine; Visit Provider Surgery
DX: E66.01 Morbid (severe) obesity due to excess calories (principal); I05.2 Rheumatic mitral stenosis with insufficiency; I27.20 Pulmonary hypertension, unspecified; I50.32 Chronic diastolic (congestive) heart failure
CPT/HCPCS: 36415; 80053; 80061; 82306; 82607; 82728; 82746; 83036; 83525; 83540; 83970; 84425; 84443; 84590; 84630; 85025; 86140

== ENCOUNTER 2022-09-02 10:45 | Outpatient (REF) | payer OTHER, SELFPAY ==
--- NOTE | ~2022-09-02 | XR_ITS ---
EXAMINATION: XR CHEST CLINICAL INFORMATION: Rheumatic mitral stenosis and regurgitation COMPARISON: Previous chest x-ray most recent April 2021 TECHNIQUE: 2 views of the chest were obtained. FINDINGS: No significant abnormality is noted involving the heart, lungs, mediastinum, bony thorax or soft tissues. There are degenerative changes of the thoracic spine. XR/XR chest 2V IMPRESSION: No evidence for acute disease in the chest.
--- NOTE | 2022-09-02 10:53 | ECG_ITS ---
Test Reason : I05.2 Blood Pressure : / mmHG Vent. Rate : 066 BPM Atrial Rate : 066 BPM P-R Int : 154 ms QRS Dur : 092 ms QT Int : 396 ms P-R-T Axes : 028 062 005 degrees QTc Int : 415 ms Normal sinus rhythm RSR' or QR pattern in V1 suggests right ventricular conduction delay Otherwise normal ECG When compared with ECG of 02-MAY-2021 22:10, No significant change was found Referred By: Mauri Henderson Electronically Signed By:ROBEL CASTELLON MD
== END 2022-09-02 10:46 | disposition home or self-care (01) ==
LOC: HO.XRAY 10:45
PROVIDERS: PCP Internal Medicine; Visit Provider Surgery
DX: E66.01 Morbid (severe) obesity due to excess calories (principal); I05.2 Rheumatic mitral stenosis with insufficiency; I27.20 Pulmonary hypertension, unspecified
CPT/HCPCS: 71046; 90791; 93005; 97802

== ENCOUNTER → 2022-09-17 10:04 | Outpatient (BNVA) | payer OTHER, SELFPAY | PROVIDERS: PCP Internal Medicine; Visit Provider Dietitian, Registered | DX: E66.9 Obesity, unspecified (principal) | CPT/HCPCS: 97803 ==

== ENCOUNTER → 2022-09-19 13:18 | Outpatient (BNVA) | payer OTHER, SELFPAY | PROVIDERS: PCP Internal Medicine; Visit Provider Counselor Mental Health | DX: F33.1 Major depressive disorder, recurrent, moderate (principal); E66.9 Obesity, unspecified | CPT/HCPCS: 90834 ==

== ENCOUNTER 2022-10-01 08:22 | Outpatient (REF) | payer OTHER, SELFPAY ==
--- NOTE | ~2022-10-01 | US_ITS ---
EXAMINATION: US COMPLETE ABDOMEN WITH LIVER ELASTOGRAPHY CLINICAL INFORMATION: Rheumatic mitral stenosis with insufficiency. COMPARISON: CT abdomen and pelvis 03/13/2022 TECHNIQUE: Real-time imaging of the abdominal viscera. Noninvasive ultrasound liver fibrosis assessment is performed using Sriram ElastPQ point quantification shear wave elastography (2D-SWE) with a C5-2 MHz transducer. Multiple elastography samples are obtained. FINDINGS: PANCREAS: Normal. The visualized pancreatic head and body are normal in appearance. The remainder of the pancreas is obscured from visualization by the overlying bowel gas. ABDOMINAL AORTA: The proximal, middle, and distal aortic segments are normal in caliber. INFERIOR VENA CAVA: Visualized portions are normal. LIVER: Normal. The liver demonstrates normal size, contour and echogenicity. No focal lesion or intrahepatic biliary duct dilatation. The right lobe measures 20.7 cm in length. The left lobe measures 14.3 cm in length. Portal flow is hepatopetal. Shear wave liver elastography median stiffness is 1.15 m/s (reference: Normal median stiffness is 1.3 m/s or less). IQR/median stiffness to assess sampling precision is 0.08 (reference: Good quality data set is IQR/median stiffness of 0.15 or less). GALLBLADDER: Normal. The gallbladder is physiologically distended without evidence of stones, sludge, polyps, wall thickening or pericholecystic fluid. COMMON BILE DUCT: Normal in caliber measuring 0.6 cm in diameter. RIGHT KIDNEY: There is an anechoic cyst in the upper pole measuring 3.2 x 3.0 x 2.9 cm and mid pole measuring 3.3 x 2.7 x 3.6 cm. No hydronephrosis. No renal calculi or focal parenchymal lesions. The kidney measures 11.2 cm in maximum dimension. LEFT KIDNEY: There is an anechoic cyst in the lower pole measuring 1.2 x 0.8 x 1.4 cm. No hydronephrosis. No renal calculi or focal parenchymal lesions. The kidney measures 11.8 cm in maximum dimension. SPLEEN: The spleen measures 11.6 cm in maximum dimension. FREE FLUID: None. US/US abdomen comp w elastography IMPRESSION: 1. Bilateral renal cysts. 2. Liver Elastography: Median liver stiffness 1.15 m/s corresponding to high probability of being normal. REFERENCE: Society of Radiologists in Ultrasound Liver Stiffness Thresholds (2020): LIVER STIFFNESS THRESHOLDS: *Liver Stiffness equal or less than 1.3 m/s: High probability of being normal. *Liver Stiffness less than 1.7 m/s: In the absence of other known clinical signs, rules out compensated advanced chronic liver disease. *Liver Stiffness 1.7-2.1 m/s: Suggestive of compensated advanced chronic liver disease but need further test for confirmation. *Liver Stiffness over 2.1 m/s: Rules in compensated advanced chronic liver disease. *Liver Stiffness over 2.4 m/s: Suggestive of clinically significant portal hypertension. QUALITY OF DATA SET: *IQR/Median value equal or less than 0.15 implies a quality data set. *IQR/Median value over 0.15 implies a poor quality data set. SIGNIFICANT CHANGE FROM PRIOR EXAM: Significant change if liver stiffness measurement is 10% or greater from prior exam. OTHER CONSIDERATIONS: The stage of liver fibrosis may be overestimated in the setting of acute hepatitis, liver inflammation, elevated liver function tests, hepatic vascular congestion, obstructive cholestasis, non-fasting state, and infiltrative diseases such as amyloidosis and lymphoma. In some patients with NAFLD, the liver stiffness thresholds for compensated advanced chronic liver disease may be lower. In causes other than viral hepatitis and NAFLD, liver stiffness thresholds are not well established.
--- NOTE | ~2022-10-01 | FL_ITS ---
EXAMINATION: XR FLUOROSCOPY UPPER GI WITH AIR CLINICAL INFORMATION: Obesity. Preop. COMPARISON: None. TECHNIQUE: Routine upper GI air-contrast study was performed in upright and lying positions. FINDINGS: Following oral administration of thick barium and effervescent granules, there is normal propagation of bolus from the oral cavity through the pharynx and esophagus and into the stomach without obstruction, narrowing or stricture. On placing patient supine and prone lying, the course, caliber and peristalsis of the stomach and the duodenum are normal. The mucosal pattern of the stomach, duodenal bulb and the sweep is normal. There is moderate gastroesophageal reflux with small sliding hiatal hernia. FLUOROSCOPY TIME: 1.4 minutes. DOSE AREA PRODUCT: 36.893 uGy-m2 (microgray-meter squared). FL/FL upper GI w air IMPRESSION: Small sliding hiatal hernia with moderate gastroesophageal reflux.
== END 2022-10-01 08:23 | disposition home or self-care (01) ==
LOC: HO.US 08:22
PROVIDERS: Visit Provider Surgery
DX: E66.01 Morbid (severe) obesity due to excess calories (principal); I05.2 Rheumatic mitral stenosis with insufficiency; I27.20 Pulmonary hypertension, unspecified; I50.32 Chronic diastolic (congestive) heart failure
CPT/HCPCS: 74246; 76705; 76981

== ENCOUNTER → 2022-11-12 10:33 | Outpatient (BNVA) | payer OTHER, SELFPAY | PROVIDERS: PCP Internal Medicine; Visit Provider Physician Assistant | DX: Z13.89 Encounter for screening for other disorder (principal) ==

== ENCOUNTER → 2022-11-15 08:25 | Outpatient (BNVA) | payer OTHER, SELFPAY | PROVIDERS: PCP Internal Medicine; Visit Provider Surgery | DX: Z13.89 Encounter for screening for other disorder (principal) ==

== ENCOUNTER → 2022-11-18 09:59 | Outpatient (BNVA) | payer OTHER, SELFPAY | PROVIDERS: PCP Internal Medicine; Visit Provider Physician Assistant | DX: Z13.89 Encounter for screening for other disorder (principal) ==

== ENCOUNTER → 2022-11-25 13:23 | Outpatient (BNVA) | payer OTHER, SELFPAY | PROVIDERS: PCP Internal Medicine; Visit Provider Physician Assistant Surgical | DX: Z13.89 Encounter for screening for other disorder (principal) ==

== ENCOUNTER → 2022-12-02 08:08 | Outpatient (BNVA) | payer OTHER, SELFPAY | PROVIDERS: PCP Internal Medicine; Visit Provider Surgery | DX: Z13.89 Encounter for screening for other disorder (principal) ==

== ENCOUNTER → 2022-12-04 07:59 | Outpatient (REF) | payer OTHER, SELFPAY ==
--- NOTE | 2022-12-04 08:02 | CA_ITS ---
Transthoracic Echocardiogram Patient (Last, First, Middle): Deion Leslie, Gender: Female Date of : 1985 Age: 37 Procedure Date: 12/04/2022 Procedure Type: Transthoracic Echocardiogram Location: OP Height: 162.56 cm Weight: 99.79 kg BSA: 2.04 m2 Heart Rate: bpm BP: 124 / 60 mmHg Clinical Technologist: Referring MD: Juan Benitez MD Symptoms: I05.2 - Rheumatic mitral stenosis with insufficiency Study Quality: Adequate ECG Rhythm: Sinus Conclusions: - The left ventricular systolic function is normal. The calculated ejection fraction is 60% by biplane method. - The basal inferior and basal inferoseptal segments are hypokinetic. - Possible rheumatic mitral valve involvement; mild mitral regurgitation. Findings Left Ventricle Normal left ventricular cavity size. There is normal left ventricular wall thickness. The left ventricular systolic function is normal. The calculated ejection fraction is 60% by biplane method. Diastolic function is normal for age. Wall Motion Rest Echo Findings The basal inferior and basal inferoseptal segments are hypokinetic. Right Ventricle Normal right ventricular cavity size and systolic function. Atria The left atrium is mildly dilated. The right atrium is normal in size. Aortic Valve There is a normal trileaflet aortic valve. There is no aortic valve stenosis. There is no aortic valve regurgitation. Mitral Valve There is mild anterior and posterior mitral leaflet thickening. There is mild mitral annular calcification. There is mild mitral valve regurgitation. There is no mitral valve stenosis. Possible rheumatic etiology. Pulmonic Valve The pulmonic valve is likely normal. Tricuspid Valve There is trace tricuspid valve regurgitation. There is no evidence of pulmonary hypertension. Great Vessels The asc aorta is normal in size. Venous The inferior vena cava is normal in size and collapses greater than 50% with inspiration. Pericardium/Pleural There is no evidence of pericardial effusion. Prior Study Comparison Changes noted compared to prior study dated: 06/07/2021. Mitral regurgitation less prominent. Measurements 2D Linear Measurements RVIDd: 3.72 RVIDd Index: 1.82 IVSd: 0.77 0.6-0.9/0.6-1.0 cm LVIDd: 4.93 3.9-5.3/4.2-5.9 cm LVIDd Index: 2.42 2.4-3.2/2.2-3.1 cm/m2 LVIDs: 3.28 2.0-3.6 cm LVPWd: 0.79 0.7-1.1 cm Ao Root: 2.60 2.1-3.5 cm LV Mass: 159.94 67-162/88-224 g LV Mass Index: 78.40 43-95/49-115 g/m2 LVOT Diam: 2.10 3.0+(-)1.3 cm 2D Systolic Function EF 4C: 56.80 >55% EF 2C: 66.30 >55% EF BiP: 59.50 >55% Mitral Valve MV Pk E: 1.09 MV PK A: 1.08 MV Decel Time: 238.00 E/A: 1.00 E'Lateral: 10.70 E'Medial: 9.36 E/E' Med: 11.60 E/E' Lat: 10.20 PHT: 70.00 MVA PHT: 3.14 Decel [place]: 4.58 Aortic Valve AoV Pk Bart: 1.44 AoV Mn Bart: 1.00 AoV VTI: 0.32 AoV Pk Grad: 8.00 Aov Mn Grad: 5.00 PITA Cont.VTI: 2.85 LVOT LVOT Pk Bart: 1.16 LVOT Mn Bart: 0.79 LVOT VTI: 0.26 LVOT Pk Grad: 5.00 LVOT Mn Grad: 3.00 LVOT Diam: 2.10 LVOT Area: 3.46 Diastolic Function MV Pk E: 1.09 MV Pk A: 1.08 E/A: 1.00 E'Medial: 9.36 E/E' Med: 11.60 E' Laterial: 10.70 E/E' Lat: 10.20 Right Ventricle TAPSE (mm): 31.00 TVS' Bart: 12.00 Tricuspid Valve TR Pk Bart: 2.18 TR Pk Grad: 19.00 RA Press: 3.00 Great Vessels Aorta Ao Root-2D: 2.60 2.0-3.7 cm Ao Asc: 2.60 2.1-3.4 cm Pulmonary Valve PV Pk Bart: 0.94 Peak PV Grad: 4.00 Updated in Other Vendor System with Status of Final Juan Benitez MD electronically signed on 12/05/2022 10:49:11 AM with status of Final
== END ==
LOC: HO.CARD 07:59
PROVIDERS: PCP Internal Medicine; Visit Provider Surgery
DX: I05.2 Rheumatic mitral stenosis with insufficiency (principal); Z86.79 Personal history of other diseases of the circulatory system
CPT/HCPCS: 93306

== ENCOUNTER → 2022-12-09 07:59 | Outpatient (REF) | payer OTHER, SELFPAY ==
[2022-12-09 09:09] LABS: MANUAL DIFF FLAG NO
--- NOTE | 2022-12-09 09:41 | CA_ITS ---
Acquisition Time: 2022-12-09 08:06:07 Total Exercise Time: 00:09:15 Test Indications: Pre-Op Evaluation CHF Medications: FUROSEMUDE ESCITALOPRAM Protocol: SONJA Max HR: 160 BPM 87% of Pred: 182 BPM Max BP: 172/060 mmHG Max Work Load: 10.5 METS Exercise stress test with exercise 9 min 15 sec of Sonja protocol, achieving 87% MPHR, with mild sob and fatigue with need to stop, No chest discomfort, with isolated PAC, with normotensive response to exercise, without EKG changes meeting criteria for ischemia. Nuclear images pending. Test reviewed with Dr Cooper Referred By: Juan Benitez Overread By: PAYTON BAKER
[2022-12-09 09:51] LABS: Basophils Absolute Auto 0.1 X10*3/uL (0.0-0.2); Basophils Percent Auto 0.6 % (0-2); Eosinophils Absolute Auto 0.4 X10*3/uL (0.0-0.4); Eosinophils Percent Auto 4.4 % (0-4); Hemoglobin 12.9 g/dl (12.0-16.0); Imm Gran Abs Auto 0.03 X10*3/uL (0.00-0.03); Imm Gran Pct Auto 0.3 % (0.0-0.4); Lymphocytes Absolute Auto 2.4 X10*3/uL (1.2-4.9); Lymphocytes Percent Auto 27.4 % (20-40); Mean Corpuscular HGB Conc 33.9 g/dl (31.0-35.0); Mean Corpuscular Volume 82.4 fL (80.0-98.0); Mean Platelet Volume 9.7 fL (9.4-12.3); Monocytes Absolute Auto 0.6 X10*3/uL (0.1-1.2); Monocytes Percent Auto 6.9 % (2-11); Neutrophils Absolute Auto 5.3 x10*3/uL (2.0-8.3); Neutrophils Percent Auto 60.4 % (45-73); Platelet Count 400 X10*3/uL (160-400); Red Blood Count 4.61 X10*6/uL (4.20-5.50); Red Cell Distribution Width 14.3 % (11.0-16.0); White Blood Count 8.8 X10*3/uL (4.8-10.8)
[2022-12-09 09:56] LABS: INTERNATIONAL NORM RATIO 1.2 (0.9-1.1); Prothrombin Time 13.5 SEC (10.0-13.1)
[2022-12-09 09:59] LABS: Partial Thromboplastin Time 33.6 SEC (26.0-36.4)
[2022-12-09 10:29] LABS: Estimated Average Glucose 117 mg/dL; Hemoglobin A1c % 5.7 %
[2022-12-09 10:33] LABS: Alanine Aminotransferase 10 U/L (0-31); Albumin Level 3.9 g/dL (3.5-5.0); Alkaline Phosphatase 74 U/L (39-117); Anion Gap 12 (12-20); Aspartate Amino Transferase 10 U/L (5-31); Bilirubin Total 0.3 mg/dL (0.0-1.0); Blood Urea Nitrogen 12 mg/dL (9-16); Carbon Dioxide 23 mmol/L (22-29); Chloride 107 mmol/L (96-108); Cholesterol 134 mg/dL; Estimated Glomerular Filt Rate > 60; Glucose Random 107 mg/dL (60-115); HDL Cholesterol 28 mg/dL; LDL Cholesterol Calculated 84 mg/dl; Potassium 4.3 mmol/L (3.3-5.1); Sodium 138 mmol/L (135-145); Total Protein 6.9 g/dL (6.5-8.0); Triglycerides 111 mg/dL
[2022-12-09 10:39] LABS: Insulin 11 uU/mL (2-29); TSH reflex Free T4 2.01 uIU/mL (0.32-4.0)
== END ==
LOC: HO.CARD 07:59
PROVIDERS: Surgery; Visit Provider Internal Medicine
DX: I50.32 Chronic diastolic (congestive) heart failure (principal); I05.2 Rheumatic mitral stenosis with insufficiency; E66.9 Obesity, unspecified; Z68.37 Body mass index [BMI] 37.0-37.9, adult; Z86.79 Personal history of other diseases of the circulatory system
CPT/HCPCS: 36415; 78452; 80053; 80061; 83036; 83525; 84443; 85025; 85610; 85730; 86140; 93017; A9500

== ENCOUNTER → 2022-12-16 10:30 | Outpatient (BNVA) | payer OTHER, SELFPAY | PROVIDERS: PCP Internal Medicine; Referring Provider Internal Medicine; Visit Provider Internal Medicine | DX: Z01.810 Encounter for preprocedural cardiovascular examination (principal); E66.01 Morbid (severe) obesity due to excess calories; I50.32 Chronic diastolic (congestive) heart failure; I34.1 Nonrheumatic mitral (valve) prolapse; F17.210 Nicotine dependence, cigarettes, uncomplicated; Z68.37 Body mass index [BMI] 37.0-37.9, adult | CPT/HCPCS: 99212 ==

== ENCOUNTER 2022-12-17 09:35 | Inpatient (IN) | payer OTHER, SELFPAY ==
[2022-12-02 11:39] VITALS: BMI 37.8
--- NOTE | 2022-12-14 19:13 | MHC.SHP ---
Pre-Procedural Eval Section A Date of Service: 12/14/22 The patient is an INPATIENT: Yes The History & Physical has been completed within 30 days and I have reviewed it.: Yes Section B Chief Complaint: Obesity, unspecified Relevant Family History (Specify if Yes): No Relevant Social History: None Present Medications: None Medical History: No relevant PMH History of Previous Operations: No relevant previous surgery Allergies: Allergies Allergy/AdvReac Type Severity Reaction Status Date / Time No Known Allergies Allergy Verified 12/02/22 12:12 Review of Systems Sugical H&P ROS: Negative: Constitution, Cardiovascular, Respiratory, Neurological, Psychiatric, Hem-Onc, Allergic/Immunologic, Gastrointestinal, Genitourinary, Musculoskeletal, Integumentary, Endocrine and Eyes/Ears/Nose/Throat Exam Surgical H&P Exam: Normal: HEENT, Normal: Heart, Normal: Lungs, Normal: Extremities, Normal: Abdomen, Normal: Skin and Normal: Neurological Plan Diagnosis/Plan: Unchanged I have reviewed the history and physical and performed a pertinent physical examination on my patient. No changes have occurred unless specified. Time Spent With Patient Time: Total time managing care of this patient today ____ minutes.
[2022-12-16 11:58] LABS: COVID-19 Test Negative (Negative); IDNOW Serial# 9DB6401D
[2022-12-17] VITALS (12 sets, daily range): BP systolic 117–162; BP diastolic 58–94; PULSE 56–97; RESP 14–24; TEMP 36.6–36.8; O2SAT 96–100
--- NOTE | ~2022-12-17 | NM_ITS ---
EXERCISE MYOCARDIAL PERFUSION STUDY INDICATION: Preoperative cardiac vascular evaluation TECHNIQUE: The patient was brought in for an exercise perfusion study on 12/09/2022. Patient performed exercise as per Javon protocol and was injected 35 mCi of sestamibi once target heart rate was achieved. Images were obtained using the SPECT gamma camera interlaced with the gating device. Images were obtained in supine position. Resting perfusion study was performed on 12/10/2022. Patient was administered 35 mCi of sestamibi intravenously at rest. Images were then obtained in supine position. Total DLP 162mGy-cm. Images were processed with the software and compared side to side in short axis, horizontal long axis and vertical long axis views. FINDINGS: Overall image quality suboptimal, probably from body habitus area Raw images were reviewed. The stress perfusion study showed diminished tracer uptake in the anterior wall, most prominent towards the apex. With CT attenuation correction, there is significant improvement except in the most distal anterior septum. The gated study shows normal LV systolic function with calculated LVEF of 54%. LV cavity is normal in size. The gated study shows normal wall thickening and contraction of segments. Resting study shows diminished tracer uptake towards the apical lateral wall. Otherwise unremarkable. With CT attenuation correction, not much improvement and in fact seems worse but that could be technical. Gating at rest reveals normal wall motion with ejection fraction at 51%. The findings are consistent with no clear reversible or fixed defects. Image quality limits assessment. NM/NM cardiolite stress test IMPRESSION: 1. Myocardial perfusion imaging study shows no clear evidence of any ischemia or infarction based on available image quality. 2. Gated LVEF is 54% during stress and 51% during rest. Correlate with echocardiogram. 3. Transient ischemic dilatation not present. EKG component of the test reported separately.
[2022-12-17 10:10] LABS: UPreg QC Valid YES; Urine Pregnancy NEGATIVE (NEGATIVE)
[2022-12-17] MEDS: Lactated Ringers 1,000 ML 999 ML IV (10:13)
--- NOTE | 2022-12-17 10:57 | P.CONAN_ITS ---
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 Seen by cardiology 12/16/2022. Assessed to be low cardiac risk for surgery [facility] Active Problems Active Problems: All Active Problems (Updated 12/16/22 @ 11:01 by Viv Rouse MD) Non-rheumatic mitral regurgitation (Acute) Preoperative cardiovascular examination (Acute) Advanced maternal age (AMA) in (Acute) Shortness of breath Abnormal EKG (Acute) History of congestive heart failure (Acute) Rheumatic mitral stenosis with incompetence (Acute) Pulmonary hypertension (Acute) Morbid obesity (Acute) state (Acute) Anemia (Acute) Encounter for general adult medical examination with abnormal findings (Acute) Major depression, recurrent (Acute) Anxiety, generalized (Acute) Heart palpitations (Acute) Lumbar pain (Acute) Mitral valve insufficiency (Acute) Major depressive disorder, recurrent, moderate (Acute) Vitamin B12 deficiency (Acute) BMI 39.0-39.9,adult (Acute) BMI 38.0-38.9,adult (Acute) BMI 37.0-37.9, adult (Acute) GERD (gastroesophageal reflux disease) (Acute) Chronic diastolic congestive heart failure (Acute) Gestational diabetes (Acute) Obesity (BMI 30-39.9) (Acute) Past Medical History Medical History (Updated 12/17/22 @ 12:19 by Viv Rouse MD) Anemia Bipolar disorder Chronic diastolic congestive heart failure Depression GERD (gastroesophageal reflux disease) Gestational diabetes Gestational diabetes Gestational diabetes Heart palpitations Hematuria Kidney cysts Migraines Mitral valve prolapse Obesity (BMI 30-39.9) Shortness of breath Family History Family History Mother Hx of diabetes mellitus History of hypothyroidism Father Hx of coronary artery disease History of hypertension Maternal Grandfather Hx of diabetes mellitus Paternal Grandmother Hx of diabetes mellitus Maternal Grandfather Hx of coronary artery disease Paternal Grandfather No problems noted. Other Mental health disorder Family history of problems with anesthesia: No Surgical History Surgical History S/P excision of ganglion cyst History of Problems with Anesthesia: No Social History Social History Housing: Apartment Are you a primary manager progressive care to a significant other at home: Yes (1.5 yr old daughter, 12 yr old daughter, 16 yr old son) Do you presently have visiting nurse or other home services: No Alcohol intake: never Patient Tobacco Use Status: Current someday Tobacco user Tobacco use type: Cigarette e-Cigarette/Vaping Use: Never Used Second Hand Smoke Exposure: Yes Use of substances other than those prescribed or required for medical reasons: No Have you been hit, kicked, punched, or otherwise hurt by someone within the past year? If so, by whom?: No Spiritual Healthcare Practices: no Rastafari Healthcare Practices: no Cultural Healthcare Practices: no Are you DNR?: No Advance Directives: No Advance Directives Information Provided: Yes Advance Directives on File: No Recently lost weight without trying: No Nutrition Risks: No Nutritional Risk Patient : No FDLMP: 11/09/2023 : No Poor oral hygiene: No service: No Current occupational status: employed Cognitive needs: No Hearing needs: No Vision needs: Yes Meds Allergies Allergy/AdvReac Type Severity Reaction Status Date / Time No Known Allergies Allergy Verified 12/16/22 11:01 Active Medications: Current Medications Lactated Ringer's (Lr) 1,000 mls @ 999 mls/hr IV .Q1H1M ZOYA Stop: 12/17/22 11:45 Last Admin: 12/17/22 10:13 Dose: 999 mls/hr Home Medications Medication Instructions Recorded Confirmed Last Taken Type furosemide 20 mg tablet (Lasix) 20 mg PO DAILY PRN Edema 12/02/22 12/16/22 11/11/22 History Exam Exam Date and Time: December 17, 2022 1057 Height,Weight and Vital Signs: Height 5 ft 4 in Weight 99.79 kg Last Vital Signs Temp 98.0 F 12/17/22 09:55 Pulse 65 12/17/22 09:55 Resp 15 12/17/22 09:55 BP 121/70 12/17/22 09:55 Pulse Ox 98 12/17/22 09:55 O2 Del Method 12/17/22 09:55 Pertinent Lab Results Pertinent Lab Results: Laboratory Tests 12/09/22 12/16/22 12/17/22 09:01 11:35 09:50 Urine Test NEGATIVE COVID-19 (LEROY) Negative COVID-19 Clin Com See Note Blood Type O Positive Antibody Screen NEGATIVE Airway Mallampati Class: II TM Dist: >3cm Neck ROM: Full Loose/Missing/Broken Teeth: No (Denies broken, loose, missing teeth) Heart: RRR Lungs: CTAB Assessment and Plan Assessment Anesthesia Assessment: Anesthesia Plan Discussed and Chart Reviewed Final Anesthetic Review Family History of Problems with Anesthesia: No History of Problems with Anesthesia: No NPO: Yes ASA Class: III Final Preanesthetic Review: No Changes in Pt Med Stat, Meds/Allgs Chart Reviewed, Consent Obtained/Reviewed and Anes Risks/Benef Reviewed Patient Risk: Intermediate Procedure Risk: Intermediate Assessment/Block/Sedation in SS: Assess/Block/Sedation-SS Anesthetic Plan Anesthetic Plan: GA Disposition: Standard PACU and Inp. Admit - Standard Bed
--- NOTE | 2022-12-17 12:08 | PM.OP ---
Brief Operative Note Date of Service: 12/17/22 Pre-op diagnosis: Obesity with severe comorbidities (see below) Post-op diagnosis: same (& abdominal adhesions) Procedure: INITIAL PATIENT BMI ON PRESENTATION AT OUR OFFICE: 41.1 kg/m2 LAST BMI BEFORE SURGERY: 37.8 kg/m2 COMORBIDITIES: Congestive heart failure, Bipolar disorder, DJD, diaphragmatic hernia, GERD, mitral valve regurgitation, mitral valve stenosis ?The patient presented to the Weight Management Program with significant obesity that was negatively impacting the patient's comorbidities as listed above.? The program is a phased program with a special focus on preoperative medical weight management to promote substantial weight loss and prepare the patients for the second phase of the program: bariatric surgery. The patient participated in an intensive weekly lifestyle ?intervention and exercise program during which the patient ?has lost between the initial office visit and the last preoperative visit 19.8 lbs, or 8.26% of initial actual body weight. It was deemed appropriate for the patient to now have bariatric surgery. In light of the current Covid-19 pandemic and the well documented strong association of obesity and increased risk of worse outcomes if infected with Covid-19 (REFERENCES:https://pubmed.ncbi.nlm.nih.gov/38055211/,?https://pubmed.ncbi.nlm.nih.gov/94185101/), any delay in undergoing bariatric surgery may lead to the patient's worsening health condition and increased?risk of more severe Covid-19 disease if infected. In addition a recent?study from [facility] [place] published in [facility] on 11/05/2021 ([email or web address]) found that, among patients with obesity, substantial weight loss achieved with surgery was associated with improved outcomes of COVID-19 infection. The findings suggest that obesity can be a modifiable risk factor for the severity of COVID-19 infection. In addition, the patient met the BMI-criteria for bariatric surgery based on the BMI on initial presentation. The patient should not be penalized for achieving such weight loss because ?it is not sustainable long-term without surgical intervention and it was achieved in preparation for bariatric surgery ?under my direction and based on my published research ([email or web address] and?[email or web address].soard.org/[email or web address])[email or web address]/pdf) ?that a 10% preoperative weight loss improves long-term weight loss after surgery and reduces perioperative complications.? Insurance carriers such as [facility] have endorsed my recommendations ?and have included in their policies criteria to include a 10% preoperative weight loss requirement. PROCEDURE: Esophago-gastroscopy, laparoscopic lysis of adhesions, laparoscopic sleeve gastrectomy and laparoscopic gastropexy INDICATIONS: This is a 37 year-old female who was electively scheduled for laparoscopic, possibly open sleeve gastrectomy. The risks and complications of the procedure were discussed with the patient in advance, particularly the possibility of ; pulmonary embolism; staple line leak; bleeding; GERD; cardiac, pulmonary, or renal complications; as well as long-term problems such as insufficient weight loss, vitamin deficiency, strictures, or ulcers. The patient understood all the risks, and was in agreement to proceed with surgery. DESCRIPTION OF PROCEDURE: After informed consent was obtained from the patient, the patient was given preoperative antibiotics, and was transferred to the operating room. After successful induction of general anesthesia, pneumatic compression devices were placed on both lower extremities. An upper endoscopy was performed next. The oropharynx and esophagus appeared to be within normal limits. There was no significant diaphragmatic hernia present. The stomach was entered. Then after all fluid and air were suctioned and the stomach was fully decompressed, the scope was withdrawn and secured in the mid esophagus. The patient was then prepped and draped in the usual sterile manner, and abdominal access was established at the right upper quadrant with the Laura technique. A 12 mm blunt port was inserted, and the abdomen was insufflated with CO2 to a pressure of 15 mmHg. Under direct visualization, additional ports were placed, specifically two 5 mm Versi-step ports to the left upper quadrant, and a 5 mm Versi-Step port to the right upper quadrant. 1% lidocaine plain was used to infiltrate all port sites as well as all fascia defects. Following that, the patient was placed in a steep reverse Trendelenburg position. An additional 5 mm port was placed to the right flank for the Mediflex retractor that was used to retract the left lobe of the liver. The gastro-esophageal fat pad was opened with the ultrasonic device (Thunderbeat, Olympus) and the anterior esophagus and hiatus were exposed. The angle of His was opened with the ultrasonic device the fundus of the stomach from any diaphragmatic and splenic attachments. I then opened the gastrocolic ligament between the transverse colon and the greater curvature of the stomach with the ultrasonic device to enter the lesser sac and facilitate the ligation of the short gastric vessels. I started at a mid-point along the greater curvature and using the Thunderbeat, all short gastric vessels were divided all the way to the angle of His until the left nghia was completely dissected at its entirety. I then divided the gastro-colic ligament distally to a distance of about 3-4 cm proximal to the pylorus. There were extensive congenital adhesions between the pancreas and posterior gastric wall. Those were lysed completely with the ultrasonic device. Adhesiolysis took approximately 45 min to complete. The stomach was then divided transversely with one Endo CRISTINA-45 purple, one CRISTINA-45 orange and four CRISTINA-60 articulating orange loads using the AEON stapler and loads. Every effort was made that the gastric sleeve had a tubular shape and an even caliber throughout. Once the sleeve resection was completed, the staple line of the gastric sleeve was reinforced with Hemoclips. The resected stomach was retrieved without difficulty from the Laura port. A gastropexy was then performed in order to prevent postoperative GERD and partial gastric volvulus. Several interrupted 2.0 Surgidac sutures were placed between the sleeve's staple line and the previously divided greater omentum and gastro-colic ligament using the Endo-Stitch device. ?An upper endoscopy was performed. There was no narrowing at the GE junction. The scope was easily advanced all the way to the pylorus which was clearly visualized. There was no narrowing anywhere and the sleeve's caliber was even throughout. The sleeve's staple line was inspected and there was no evidence of ischemia, bleeding or dehiscence. At that point the gastroscope was withdrawn from the patient?s mouth while we were decompressing the bowel and the stomach from any remaining air. I looked into the lesser sac to see how the sleeve was situating and it was situating well. There was no bleeding from the staple line, spleen, or short gastric vessels. The Mediflex retractor was removed, and the undersurface of the liver was inspected and there was no bleeding. The patient was placed in supine position. I closed the fascial defect of the 12 mm port site with a figure of eight #1 Polysorb suture. Then 30cc of Ropivacaine plain with 10 mg of Dexamethasone were used to infiltrate the fascial closure as well as all skin incisions. A total of 7ml of Zynrelef was applied in the Laura wound. At this point, the abdomen was deflated, all ports were removed under direct vision, and no bleeding was noted from any of the port sites. The skin incisions were irrigated with saline and were closed with 4-0 absorbable monofilament sutures. Steri-Strips and OpSites were used to cover all incisions. The patient was extubated and was transferred in stable condition to the recovery room for further care. I was present and performed all boykin parts of the procedure. Jorje was the cutter first. There were no residents to assist with this case. Murali Henderson MD, PhD, FACS Surgeon: Mauri Henderson MD Anesthesia: GETA, local and other (TAP block and 7ml Zynrelef) Was an Corporate Human Resources Manager used for this Procedure?: No Corporate Human Resources Manager: Crystal Recinos Estimated blood loss (mL): 10 IV fluids (mL): 2,300 Urine output (mL): 0 (No Whiteside to record output) Pathology: other (Stomach) Condition: stable Disposition: PACU
--- NOTE | 2022-12-17 12:12 | PM.PNGS ---
Subjective Subjective Date of Service: 12/18/22 Interval history: Patient has mild incisional pain, but was able to ambulate and use the incentive spirometer. She is tolerating phase 1 bariatric diet Physical Exam Vital Signs: Vital Signs: Last Vital Signs Temp 98.0 F 12/17/22 09:55 Pulse 65 12/17/22 09:55 Resp 15 12/17/22 09:55 BP 121/70 12/17/22 09:55 Pulse Ox 98 12/17/22 09:55 O2 Del Method 12/17/22 09:55 BMI result Body Mass Index 37.8 GI: Inspection: Yes normal to inspection, Yes incision (clean, dry and intact) and Yes obesity Palpation (GI): Soft to palpation Extrem: Right lower extremity: normal to inspection (no calf tenderness) Left lower extremity: normal to inspection (no calf tenderness) Objective Data Labs 12/17/22 15:32 12/17/22 15:32 Labs: Laboratory Results - last 24 hr 12/17/22 09:50 Urine Test NEGATIVE Procedures Date of Service Date of Service: 12/18/22 Progress Note: A&P Assessment and plan (1) Obesity: Status: Acute Assessment and Plan: s/p laparoscopic sleeve gastrectomy, lysis of adhesions and gastropexy Doing well Check am labs. If OK, will discharge home? (2) BMI 37.0-37.9, adult: Status: Acute (3) GERD (gastroesophageal reflux disease): Status: Acute (4) Chronic diastolic congestive heart failure: Status: Acute (5) Anxiety, generalized: Status: Acute (6) Major depression, recurrent: Status: Acute (7) Non-rheumatic mitral regurgitation: Status: Acute (8) Bipolar disorder: Status: Acute (9) S/P laparoscopic sleeve gastrectomy: Status: Acute Time Spent With Patient Time: Total time managing care of this patient today ____ minutes. Quality Stroke Does the patient have a stroke diagnosis?: No VTE Prior VTE?: No VTE Risk Level:: Surgical - moderate VTE Device Contraindication: N/A - Device Ordered VTE Drug Contraindication: Treatment Not Indicated
--- NOTE | 2022-12-17 12:26 | PM.DS ---
DS: Providers Provider Date of Service: 12/18/22 Date of admission: 12/17/22 09:35 Primary care physician: Martha Raya MD DS: Diagnosis Discharge Diagnosis (1) Obesity: Status: Acute (2) BMI 37.0-37.9, adult: Status: Acute (3) GERD (gastroesophageal reflux disease): Status: Acute (4) Chronic diastolic congestive heart failure: Status: Acute (5) Anxiety, generalized: Status: Acute (6) Major depression, recurrent: Status: Acute (7) Rheumatic mitral stenosis with incompetence: Status: Acute (8) Non-rheumatic mitral regurgitation: Status: Acute (9) Bipolar disorder: Status: Acute (10) Diaphragmatic hernia: Status: Acute DS: Summary Hospital Course Hospital Course: ADMITTING DIAGNOSIS: morbid obesity, MVP, migraines, bipolar disorder, hx of CHF DISCHARGE DIAGNOSIS: same, s/p laparoscopic sleeve gastrectomy PAST SURGICAL HISTORY: none PROCEDURE: upper endoscopy, laparoscopic sleeve gastrectomy DISCHARGE SUMMARY: History of Present Illness: The patient is a 37 year-old woman with a BMI of 41.1 kg/m2 and associated co-morbidities as described above. The patient had extensive work-up, lost 19.8 lbs preoperatively and was electively scheduled for laparoscopic, possible open sleeve gastrectomy and gastropexy. Risks and complications of the surgery were discussed with the patient in advance, particularly the possibility of , pulmonary embolism, anastomotic leak, bleeding, bowel injury, GERD, cardiac, renal or pulmonary complications. The patient understood all the risks and was in agreement with the surgical plan. Hospital Course: The patient underwent an uneventful laparoscopic sleeve gastrectomy with gastropexy on the day of admission. Postoperatively, the patient was transferred to the surgical floor. The patient received IV Acetaminophen and IV dilaudid for pain control. Patient was started on bariatric phase 1 diet POD #0. On postoperative day one, the patient was feeling well without nausea, vomiting, fevers, or tachycardia. The patient had some mild incisional pain and the abdomen was soft. On the morning of postoperative day one, the patient was continued on 1 ounce of water or ice every half hour. During the day, the patient did fairly well, having some incisional pain, but able to ambulate adequately and to tolerate liquids well. Since the patient is doing well, we decided that the patient was ready to be discharged. The patient was given instructions to follow-up with me next week and to call my office for any fever over 101, persistent abdominal pain, nausea, vomiting, GERD, symptoms of DVT such as calf tenderness, or leg swelling, or pulmonary embolism such as chest pain or shortness of breath. The patient was also instructed to drink 40-60 ounces of liquids per day using the 1-ounce cups. The patient had been given prescriptions for Tylenol for pain, Zofran prn for nausea, and pantoprazole and carafate previously. The patient was encouraged to ambulate and use the incentive spirometer. The patient was allowed to shower, but no baths, and encouraged to stay active at home. All of these instructions were given to the patient personally. All questions were answered and the patient understood all instructions, the instructions were also given to the patient in print. Time Spent with Patient Time attestation: Total time managing care of this patient today ____ minutes. Discharge coordination time: Less than 30 minutes Quality: Safe Use of Opioids Does Pt have an Active Cancer Diagnosis on the Problem List?: No Quality: Stroke Does the patient have a stroke diagnosis?: No Physical Exam Vital Signs: Vital Signs: Last Vital Signs Temp 98.0 F 12/17/22 09:55 Pulse 65 12/17/22 09:55 Resp 15 12/17/22 09:55 BP 121/70 12/17/22 09:55 Pulse Ox 98 12/17/22 09:55 O2 Del Method 12/17/22 09:55 BMI result Body Mass Index 37.8 DS: Data Data Completed and Pending Labs on day of discharge: Laboratory Results - last 24 hr 12/17/22 09:50 Urine Test NEGATIVE Discharge Plan Discharge Anticipated Discharge Date/Time: 12/18/22 10:27 Patient Disposition: Home, Self-Care Discharge Diagnosis: s/p sleeve gastrectomy Referrals: Martha Raya MD [Primary Care Provider] - 1 Week Discharge Medications: Continued pantoprazole 40 mg tablet,delayed release (DR/EC) 40 mg PO DAILY Qty: 30 2RF sucralfate 100 mg/mL suspension 10 ml PO BID Qty: 400 2RF ondansetron HCl 4 mg tablet 4 mg PO Q12H Qty: 20 0RF Rx Instructions: use it only if you have nausea as needed Held furosemide [Lasix] 20 mg tablet 20 mg PO DAILY PRN (Reason: Edema) Hold Instructions: Discuss restart with Dr Henderson Discontinued cholecalciferol (vitamin D3) 125 mcg (5,000 unit) capsule 125 mcg PO DAILY Qty: 30 2RF mecobalamin (vitamin B12) 1,000 mcg tablet,disintegrating 1,000 mcg sublingual DAILY Qty: 30 2RF Rx Instructions: place tablet under tongue and allow to dissolve for at least30 secs before swallowing Discharge Orders: Discharge Order (Routine); Ordered 12/18/22 Ordered By: Mauri Henderson Activity on Discharge: No heavy lifting Stand Alone Forms: Patient Portal Discharge page Care Plan Goals: weight loss Health Concerns: obesity Plan of Treatment: No tub baths, sex or returning to work until discussed at first post op appointment. No exercise, alcohol, tobacco or illegal drug use. Continue to use incentive spirometer hourly while awake. Walk in home for 5- 10 minutes every 2 hours during the first week. Continue phase 1 diet today and start phase 2 diet tomorrow morning. Follow all instructions in the bariatric handbook and call with any questions. 1. Please call your doctor or come back to the emergency room should any new symptoms arise. 2. You will receive a courtesy call from [facility] 24-48 hours after discharge. 3. Activity: abstain from alcohol, practice limited stair climbing, no bending, no driving, no exercise, no illicit substances, no lifting, no sex, no tub bath, no work. 4. Diet: continue as discussed with bariatric team.. 5. Dressing Change/Wound Care: Do not change or remove surgical dressings unless they are wet or soiled. 6. Call your doctor if: - Your temperature exceeds 101.5 F - You experience excessive pain or swelling - You have an unexpected reaction to medication - You have excessive bleeding - You experience continued vomiting/nausea - Your incision begins to separate - Your incision shows signs of infection such as increased redness, swelling, excessive pain, heat, or drainage (light blood or clear fluid is normal) 7. General instructions: No lifting greater than 5 lbs for the next 4 weeks[address] within 24 hours of taking narcotic pain medications. If you do not move your bowels in the next 2 days, please take milk of magnesia over the counter. Please follow the post op diet and do not advance your diet until you are seen in the office in about 2 weeks. Please walk around your home every hour or two to prevent blood clots from forming in your legs. You do not need to wake from sleeping to walk. Please sleep in a bed or couch to prevent kinking at the hips and knees. Please take your incentive spirometer (your lung public health program manager) home with you and use it for the next few days to prevent pneumonias. You may shower, no hot tubs, baths or swimming pools. Please call the office with any questions or concerns such as increasing abdominal pain, fever, chills, shortness of breath, chest pain, leg pain or swelling, or redness or drainage from your incisions. Do not hesitate to contact the office with any questions at . The patient's medical history has been reviewed and they are considered low risk for post op DVT and therefore DVT prophylaxis is not considered necessary. Travel after surgery was reviewed. The patient has not disclosed any travel plans during the first 30 days after surgery and they have been advised that within the first 30 days after surgery any bus, plane, train or car travel over 2 hours in duration is contraindicated due to the possibility of developing blood clots from immobility. Any travel, needs to include periods of ambulation of 10 minutes in duration every 2 hours. The patient was instructed to discuss any plans for travel during this period with their bariatric surgeon. Assessment: stable, post op sleeve gastrectomy
[2022-12-17] MEDS: Famotidine/PF 20 MG/2 ML VIAL IVPUSH ×2 (15:30→21:22)
[2022-12-17 15:38] LABS: Hematocrit 39.3 % (37.0-47.0); Hemoglobin 13.2 g/dl (12.0-16.0)
[2022-12-17 15:54] LABS: Anion Gap 16 (12-20); Blood Urea Nitrogen 12 mg/dL (9-16); Calcium 9.8 mg/dL (8.4-10.2); Carbon Dioxide 19 mmol/L (22-29); Chloride 109 mmol/L (96-108); Creatinine Clr Calc Pharmacy 105.5; Estimated Glomerular Filt Rate > 60; Glucose Random 134 mg/dL (60-115); Potassium 4.5 mmol/L (3.3-5.1); Sodium 139 mmol/L (135-145)
[2022-12-17] MEDS: ondansetron HCL 4 MG/2 ML VIAL IVPUSH ×2 (15:54→21:22)
[2022-12-17] MEDS: Lactated Ringers 1,000 ML 100 ML IVCONT (16:18)
[2022-12-17] MEDS: ceFAZolin Sodium/Dextrose,Iso 2 GM/50 ML PIGGYBACK IV (17:11)
[2022-12-17] MEDS: Acetaminophen 1,000 MG/100 ML PIGGYBACK 16.7 MG IV ×2 (17:53→22:29)
--- NOTE | 2022-12-17 18:05 | PC.NURSE ---
Pt arrived to unit it bed around 1630 pt incont in large amount of urine . pt ambulated to bathroom when she arrived to ensure bladder emptying . Pt removed abdominal binder , pt yelling i need help that this discomfort is to much . Pt walked back to bed with steady gait and pt thrashing around in bed stating by back hurts/ my abdomen is sore . when I asked her about her abdomen she yelled i don't know its not pain but a lot of discomfort and that no one cares and to put her to sleep that she knows a med that starts with D for sleep .. 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 vital signs were taken . Pt also educated on phase 1 diet . Pt spit small amount of bloody saliva. 1700 pt ambulated in anaya . Pt cont to insist on meds for sleep stating i cant take it this is the worst surgery and can you give me something to knock me out.pt cont to thrash around in bed , pt educated on importance of wearing the binder and educated on the medications . IV Tylenol hung at 1800 .
--- NOTE | 2022-12-17 18:24 | PC.NURSE ---
1830 pt oob to recliner , pt eyes closed pt appears comfortable
[2022-12-17] MEDS: 0.9 % Sodium Chloride Flush 3 ML SYRINGE IVFLUSH (21:22)
[2022-12-17] MEDS: HYDROmorphone HCl 0.5 MG/0.5 ML SYRINGE 0.25 MG IVPUSH (21:30)
[2022-12-17] MEDS: Furosemide 40 MG/4 ML SOLUTION 10 MG PO (22:29)
[2022-12-18] MEDS: Lactated Ringers 1,000 ML 100 ML IVCONT (02:19)
[2022-12-18 03:19] VITALS: BP 116/60; PULSE 60; RESP 16; TEMP 36.6; O2SAT 95
[2022-12-18] MEDS: Acetaminophen 1,000 MG/100 ML PIGGYBACK 16.7 MG IV (04:19)
[2022-12-18] MEDS: ondansetron HCL 4 MG/2 ML VIAL IVPUSH (05:17)
[2022-12-18 06:24] LABS: MANUAL DIFF FLAG NO
[2022-12-18 06:45] LABS: Hemoglobin 12.3 g/dl (12.0-16.0); Imm Gran Abs Auto 0.04 X10*3/uL (0.00-0.03); Imm Gran Pct Auto 0.4 % (0.0-0.4); Lymphocytes Absolute Auto 1.4 X10*3/uL (1.2-4.9); Mean Corpuscular HGB Conc 34.2 g/dl (31.0-35.0); Mean Corpuscular Volume 81.8 fL (80.0-98.0); Mean Platelet Volume 10.1 fL (9.4-12.3); Monocytes Absolute Auto 0.6 X10*3/uL (0.1-1.2); Monocytes Percent Auto 5.7 % (2-11); Neutrophils Absolute Auto 8.4 x10*3/uL (2.0-8.3); Neutrophils Percent Auto 80.9 % (45-73); Platelet Count 416 X10*3/uL (160-400); Red Cell Distribution Width 14.2 % (11.0-16.0); White Blood Count 10.4 X10*3/uL (4.8-10.8)
[2022-12-18 07:03] LABS: Anion Gap 17 (12-20); Blood Urea Nitrogen 10 mg/dL (9-16); Calcium 9.7 mg/dL (8.4-10.2); Carbon Dioxide 20 mmol/L (22-29); Chloride 105 mmol/L (96-108); Creatinine Clr Calc Pharmacy 126.9; Estimated Glomerular Filt Rate > 60; Glucose Random 118 mg/dL (60-115); Sodium 138 mmol/L (135-145)
[2022-12-18 07:15] VITALS: BP 127/62; PULSE 58; RESP 18; TEMP 36.2; O2SAT 97
[2022-12-18] MEDS: Famotidine/PF 20 MG/2 ML VIAL IVPUSH (07:30)
--- NOTE | 2022-12-18 09:46 | MHC.CM.PN ---
EMR REVIEWED, PT ADMITTED S/P LAP SLEEVE GASTRECTOMY, CM MET W/PT WHO REPORTS SHE LIVES W/HER MOTHER AND CHILD, PT REPORTS SHE IS INDEP W/ALL CARE, DENIES USE OF DME/SERIVCES AND CURRENTLY WORKS. PT VERIFIES PCP IS RIA DENTON, UNSURE OF HOW MANY TIMES SHE HAS BEEN VACCINATED AGAINST COVID HOWEVER REPORTS SHE AT LEAST HAD THE FIRST TWO SHOTS, PT HAS BEEN EDUCATED ON AND DECLINES TO COMPLETE A HCP THIS ADMISSION. D/C PLAN: HOME TODAY NO SERVICES W/MOTHER FOR TRANSPORT
--- NOTE | 2022-12-18 14:35 | HO.POSTANES ---
Post Anesthesia Evaluation Post Anesthesia Evaluation Vital Signs: Vital Signs Temp Pulse Resp BP Pulse Ox O2 Del Method 12/18/22 07:15 97.1 F 58 18 127/62 97 Room Air 12/18/22 03:19 97.8 F 60 16 116/60 95 Room Air Anesthesia: General Endotracheal-GETA Mental Status: Awake Pain Control: Satisfactory Nausea/Vomiting: None Hydration: Adequate Anesthesia-Related Issues: No Anes. Related Issues
== END 2022-12-18 10:00 | disposition home or self-care (01) | DRG 403 ==
LOC: HO.SSSA 12:29 → HO.S3 14:56
PROVIDERS: Anesthesiology; Physician Assistant; Physician Assistant Surgical; Admitting Provider Surgery; PCP Internal Medicine; Visit Provider Surgery
PROC: 0DB64Z3 Excision of Stomach, Percutaneous Endoscopic Approach, Vertical (ICD-10-PCS; CPT 43845; principal; 2022-12-17 11:40)
DX: E66.01 Morbid (severe) obesity due to excess calories (principal); I50.32 Chronic diastolic (congestive) heart failure; F33.9 Major depressive disorder, recurrent, unspecified; I05.2 Rheumatic mitral stenosis with insufficiency; Q43.3 Congenital malformations of intestinal fixation; F17.210 Nicotine dependence, cigarettes, uncomplicated; F31.9 Bipolar disorder, unspecified; M19.90 Unspecified osteoarthritis, unspecified site; Z20.822 Contact with and (suspected) exposure to COVID-19; Z71.6 Tobacco abuse counseling; Z68.37 Body mass index [BMI] 37.0-37.9, adult; Z79.899 Other long term (current) drug therapy
CPT/HCPCS: 36415; 80048; 81025; 85014; 85018; 85025; 86850; 86900; 86901; 87635; 88307; 88342; A4649; C9088; J0131; J0690; J1100; J1170; J2250; J2405; J2550; J2795; J3010

== ENCOUNTER → 2022-12-24 10:11 | Outpatient (BNVA) | payer OTHER, SELFPAY | PROVIDERS: PCP Internal Medicine; Visit Provider Physician Assistant Surgical | DX: Z13.89 Encounter for screening for other disorder (principal) ==

== ENCOUNTER → 2022-12-31 09:52 | Outpatient (BNVA) | payer OTHER, SELFPAY | PROVIDERS: PCP Internal Medicine; Visit Provider Physician Assistant | DX: Z13.89 Encounter for screening for other disorder (principal) ==

== ENCOUNTER → 2023-01-06 13:56 | Outpatient (BNVA) | payer OTHER, SELFPAY | PROVIDERS: PCP Internal Medicine; Visit Provider Physician Assistant Surgical | DX: Z13.89 Encounter for screening for other disorder (principal) ==

== ENCOUNTER → 2023-02-18 08:56 | Outpatient (BNVA) | payer OTHER, SELFPAY | PROVIDERS: PCP Internal Medicine; Visit Provider Physician Assistant Surgical | DX: E66.9 Obesity, unspecified (principal); I05.9 Rheumatic mitral valve disease, unspecified; Z68.32 Body mass index [BMI] 32.0-32.9, adult | CPT/HCPCS: 99212 ==

== ENCOUNTER 2023-07-27 18:01 | Emergency (ER) | payer OTHER, SELFPAY ==
--- NOTE | ~2023-07-27 | XR_ITS ---
EXAMINATION: PORTABLE CHEST 1 VIEW CLINICAL INFORMATION: Fluid overload?. COMPARISON: 09/02/2022. TECHNIQUE: Portable frontal view of the chest was obtained. FINDINGS: The lungs are well expanded. No focal infiltrate, effusion, edema, or pneumothorax. Cardiac and mediastinal silhouettes are within normal limits for technique. No acute bony abnormality seen. XR/XR chest 1V IMPRESSION: No evidence of acute disease.
[2023-07-27 18:08] VITALS: BP 138/78; PULSE 77; RESP 18; TEMP 36.6; O2SAT 97; BMI 30.8
--- NOTE | 2023-07-27 18:10 | ED.GENADULT ---
HPI - General Adult General Chief complaint: General Medical Stated complaint: SOB , lethargic Time Seen by Provider: 07/27/23 20:49 Source: patient Mode of arrival: ambulatory Limitations: no limitations History of Present Illness HPI narrative: 38-year-old female who presents emergency department for evaluation of fatigue x1 week, shortness of breath, dyspnea on exertion and swelling of her face, hands and legs. The patient has a history of diastolic congestive heart failure, mitral valve regurgitation and pulmonary hypertension which developed during her in 2020. The patient is followed by Dr. Benitez. 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 The patient states she has had similar presentations in the past and usually improves when she takes Lasix daily for 3-4 days, she states she currently does not have a prescription for Lasix. She denied chest pain, fever, chills, rhinorrhea, sore throat, cough, nausea, vomiting, dark or black stools, bloody stools, frequency, urgency or dysuria. Related Data Previous Rx's Medication Instructions Recorded furosemide 20 mg tablet 20 mg PO DAILY #90 tabs 02/18/23 furosemide 20 mg tablet (Lasix) 20 mg PO DAILY #30 tabs 07/27/23 Allergies Allergy/AdvReac Type Severity Reaction Status Date / Time No Known Allergies Allergy Verified 02/18/23 09:03 Review of Systems Review of Systems: Yes all other systems are reviewed and are negative PMFSH Past Medical History [facility] Narrative: Social history: She states she occasionally smokes cigarettes when she drinks alcohol . Patient states that she occasion drinks alcohol. She denies drug use. Medical History Gestational diabetes GERD (gastroesophageal reflux disease) BMI 37.0-37.9, adult Heart palpitations Major depression, recurrent Chronic diastolic congestive heart failure Shortness of breath Mitral valve prolapse Gestational diabetes Kidney cysts Hematuria Migraines Anemia Bipolar disorder Gestational diabetes Depression Obesity (BMI 30-39.9) Surgical History S/P excision of ganglion cyst Family History Family History Mother Hx of diabetes mellitus History of hypothyroidism Father Hx of coronary artery disease History of hypertension Maternal Grandfather Hx of diabetes mellitus Paternal Grandmother Hx of diabetes mellitus Maternal Grandfather Hx of coronary artery disease Paternal Grandfather No problems noted. Other Mental health disorder Social History Social History Housing: Apartment Are you a primary insurance healthcare consultant to a significant other at home: Yes (1.5 yr old daughter, 12 yr old daughter, 16 yr old son) Do you presently have visiting nurse or other home services: No Alcohol intake: never Patient Tobacco Use Status: Current someday Tobacco user Tobacco use type: Cigarette Smoked in Last 30 Days: No e-Cigarette/Vaping Use: Never Used Second Hand Smoke Exposure: Yes Use of substances other than those prescribed or required for medical reasons: No Advance Directives: No Advance Directives Information Provided: No service: No Current occupational status: employed Cognitive needs: No Hearing needs: No Vision needs: Yes Physical Exam ED Vital Signs: Vital Signs - 24 hr 07/27/23 18:08 Temperature 98 F Pulse Rate 77 Respiratory Rate 18 Blood Pressure 138/78 Pulse Oximetry 97 Oxygen Delivery Method Room Air BMI result Body Mass Index 30.8 Vital signs were normal Exam: General: Awake, alert in no distress Head: Normocephalic, atraumatic EENT: PERRL, Lids normal, sclera normal, conjunctiva normal, nose normal , ears normal, throat without erythema or exudates Neck: Supple, no adenopathy, trachea midline and nontender Lung: breath sounds symmetric, no wheezing, rales or rhonchi Chest: symmetric movement, nontender Heart: regular rate and rhythm, normal S1, S2 no murmurs or rubs Abdomen: soft, non-tender, nondistended, normal bowel sounds Back: no vertebral tenderness, no CVAT Extremities: no deformities, moves all extremities symmetrically, trace pitting edema in her upper and lower extremities, bilaterally symmetric Skin: no rashes, no lesion, normal color and warmth Neuro: Awake, alert, oriented, normal speech, cranial nerves intact, moves all extremities symmetrically Psych: Pleasant, cooperative Course Course Course Narrative: RME: 38 yold female presents to the ED for SOB on exertion. patient states she ran out her lasix.patient denies any URI Symptoms. Labs and EkG ordered Medications Administered Discontinued Medications Generic Name Dose Route Start Last Admin Trade Name Jarethq PRN Reason Stop Dose Admin Furosemide 20 mg 07/27/23 21:06 07/27/23 21:15 Furosemide 20 Mg Tablet PO 07/27/23 21:07 20 mg ONCE ONE Administration Protocol Medical Decision Making Medical Decision Making [facility] Narrative: 38-year-old female past medical history of diastolic congestive heart failure with mitral valve regurg and pulmonary hypertension who presents emergency department for evaluation of 1 week of fatigue, shortness of breath dyspnea on exertion and swelling of her face, upper and lower extremities. Patient's review of systems otherwise unremarkable. Vital signs were normal. Physical examination did reveal trace pitting edema of her upper and lower extremities otherwise was unremarkable. Following evaluation was ordered: CBC, CMP, BNP, PT/INR, PTT, troponin, EKG, chest x-ray. 2117: Patient's laboratory evaluation was unremarkable. Chest x-ray revealed no evidence for congestive heart failure EKG was normal. Patient's presentation is consistent with fluid overload, she was started on Lasix 20 mg once a day, she was advised to restrict her fluid intake while taking Lasix, weigh yourself daily and she should anticipate 2 loose 2-3 lb in fluid weight while on the Lasix. She was given printed and verbal instructions and discharged home. Differential Diagnosis Differential Diagnoses: The differential diagnosis associated with the presentation includes Differential diagnosis includes was not limited to myocardial infarction, myocardial ischemia, congestive heart failure, anemia, electrolyte abnormalities, liver abnormalities, kidney disease Admission/Observation Consideration of admission/observation: Escalation of care including admission/observation considered Lab Data [facility] Lab Attestation statement: I reviewed the patient's lab results. My interpretation patient's laboratory evaluation as follows: CBC was normal. CMP was normal. PT/INR were normal. High sensitive troponin I was below detectable limits. BMP was normal. 07/27/23 19:03 07/27/23 19:03 Labs: Lab Results 07/27/23 Range/Units 19:03 WBC 10.1 (4.8-10.8) X10*3/uL RBC 4.41 (4.20-5.50) X10*6/uL Hgb 13.4 (12.0-16.0) g/dl Hct 38.1 (37.0-47.0) % MCV 86.4 (80.0-98.0) fL MCH 30.4 (27.0-33.0) pg MCHC 35.2 H (31.0-35.0) g/dl RDW 13.2 (11.0-16.0) % Plt Count 381 (160-400) X10*3/uL MPV 9.5 (9.4-12.3) fL Immature Gran % (Auto) 0.1 (0.0-0.4) % Neut % (Auto) 59.3 (45-73) % Lymph % (Auto) 29.9 (20-40) % Ellis % (Auto) 6.1 (2-11) % Eos % (Auto) 4.1 H (0-4) % Baso % (Auto) 0.5 (0-2) % Lymph # (Auto) 3.0 (1.2-4.9) X10*3/uL Ellis # (Auto) 0.6 (0.1-1.2) X10*3/uL Eos # (Auto) 0.4 (0.0-0.4) X10*3/uL Baso # (Auto) 0.1 (0.0-0.2) X10*3/uL Abs Immat Gran (auto) 0.01 (0.00-0.03) X10*3/uL Absolute Neuts (auto) 6.0 (2.0-8.3) x10*3/uL Absolute Nucleated RBC 0.000 (0.0-0.012) X10*3/uL Nucleated RBC % (auto) 0.0 (0.0-0.2) /100WBC PT 14.2 H (11.1-13.3) SEC INR 1.2 H (0.9-1.1) APTT 31.9 (26.0-36.4) SEC Sodium 140 (135-145) mmol/L Potassium 4.0 (3.3-5.1) mmol/L Chloride 110 H (96-108) mmol/L Carbon Dioxide 24 (22-29) mmol/L Anion Gap 10 L (12-20) BUN 13 (9-16) mg/dL Creatinine 0.71 (0.5-1.4) mg/dL Estim Creat Clear Calc 105.7 Estimated GFR > 60 Random Glucose 87 (60-115) mg/dL Calcium 10.6 H D (8.4-10.2) mg/dL Total Bilirubin 0.2 (0.0-1.0) mg/dL AST 8 (5-31) U/L ALT 8 (0-31) U/L Alkaline Phosphatase 73 (39-117) U/L Troponin I High Sens < 2.7 (<3.5-17.0) ng/L B-Natriuretic Peptide 26 (<100) pg/mL Total Protein 7.8 (6.5-8.0) g/dL Albumin 4.3 (3.5-5.0) g/dL Independent Interpretation I performed an independent interpretation of an: Plain X-Ray Interpretation: Interpretation patient's one-view chest x-ray is as follows: No acute disease My independent interpretation the patient's 12 EKG done at 18:26 is as follows: Normal sinus rhythm with a rate of 80, normal OR interval, QRS duration QTC interval no ST segment elevation, no ST segment depression, inverted T-wave in lead V1 R/R prime V1 no PACs, no PVCs. Radiology Impression Discussion of test interpretation with radiology: I have reviewed the radiologist's reading. Radiologist Impression: XR chest 1V IMPRESSION: No evidence of acute disease. Dictated By: Cuba Richard MD Chronic Conditions Patient?s care impacted by: Other (Diastolic congestive heart failure, pulmonary hypertension) Discharge Plan Discharge Clinical Impression: Fluid overload Patient Disposition: Home, Self-Care Additional Instructions: Your blood work was normal. Your chest x-ray revealed no fluid in your lungs which is reassuring. Your 12 EKG was normal as well. Take Lasix (furosemide) 20 mg in the morning, this medication will make you pee frequently for at least 6 hours. When your taking Lasix you need to restrict the amount of fluid that you drinking so that you can loose fluid weight. Weigh yourself and you should lose anywhere from 2-3 lb in fluid weight over the next week. Follow-up with your doctor in 2 days. Please return to the emergency department if your symptoms get worse or if you develop any symptoms that are concerning to you. Prescriptions: New furosemide [Lasix] 20 mg tablet 20 mg PO DAILY Qty: 30 0RF No Action furosemide 20 mg tablet 20 mg PO DAILY Qty: 90 2RF Interventions: ED Discharge Assessment Last Done: 07/27/23 21:20 Discharge Date/Time: 07/27/23 21:32
--- NOTE | 2023-07-27 18:14 | ECG_ITS ---
Test Reason : CHEST PAIN Blood Pressure : / mmHG Vent. Rate : 080 BPM Atrial Rate : 080 BPM P-R Int : 144 ms QRS Dur : 082 ms QT Int : 362 ms P-R-T Axes : 038 079 035 degrees QTc Int : 417 ms Normal sinus rhythm RSR' or QR pattern in V1 suggests right ventricular conduction delay Abnormal ECG When compared with ECG of 02-SEP-2022 10:48, No significant change was found Referred By: Chuy Corrales Electronically Signed By:GREGORIA JOSEPH
[2023-07-27 19:10] LABS: MANUAL DIFF FLAG NO
[2023-07-27 19:14] LABS: Basophils Absolute Auto 0.1 X10*3/uL (0.0-0.2); Basophils Percent Auto 0.5 % (0-2); Eosinophils Absolute Auto 0.4 X10*3/uL (0.0-0.4); Eosinophils Percent Auto 4.1 % (0-4); Hematocrit 38.1 % (37.0-47.0); Hemoglobin 13.4 g/dl (12.0-16.0); Imm Gran Abs Auto 0.01 X10*3/uL (0.00-0.03); Imm Gran Pct Auto 0.1 % (0.0-0.4); Lymphocytes Percent Auto 29.9 % (20-40); Mean Corpuscular HGB Conc 35.2 g/dl (31.0-35.0); Mean Corpuscular Hemoglobin 30.4 pg (27.0-33.0); Mean Corpuscular Volume 86.4 fL (80.0-98.0); Mean Platelet Volume 9.5 fL (9.4-12.3); Monocytes Absolute Auto 0.6 X10*3/uL (0.1-1.2); Monocytes Percent Auto 6.1 % (2-11); Neutrophils Percent Auto 59.3 % (45-73); Platelet Count 381 X10*3/uL (160-400); Red Blood Count 4.41 X10*6/uL (4.20-5.50); Red Cell Distribution Width 13.2 % (11.0-16.0); White Blood Count 10.1 X10*3/uL (4.8-10.8)
[2023-07-27 19:20] LABS: INTERNATIONAL NORM RATIO 1.2 (0.9-1.1); Prothrombin Time 14.2 SEC (11.1-13.3)
[2023-07-27 19:22] LABS: Partial Thromboplastin Time 31.9 SEC (26.0-36.4)
[2023-07-27 19:27] LABS: Alanine Aminotransferase 8 U/L (0-31); Albumin Level 4.3 g/dL (3.5-5.0); Alkaline Phosphatase 73 U/L (39-117); Anion Gap 10 (12-20); Aspartate Amino Transferase 8 U/L (5-31); Bilirubin Total 0.2 mg/dL (0.0-1.0); Blood Urea Nitrogen 13 mg/dL (9-16); Calcium 10.6 mg/dL (8.4-10.2); Carbon Dioxide 24 mmol/L (22-29); Chloride 110 mmol/L (96-108); Creatinine Clr Calc Pharmacy 105.7; Estimated Glomerular Filt Rate > 60; Glucose Random 87 mg/dL (60-115); Sodium 140 mmol/L (135-145); Total Protein 7.8 g/dL (6.5-8.0)
[2023-07-27 19:35] LABS: Troponin-I High Sensitivity < 2.7 ng/L (<3.5-17.0)
[2023-07-27 19:40] LABS: B Type Natriuretic Peptide 26 pg/mL (<100)
--- NOTE | 2023-07-27 19:43 | PC.NURSE ---
Pt having issues with infection in breast reporting drained and antibiotic treatment several times.Patient admitted in April for abx treatment. Cyst removed in June from L-breast. Yesterday afternoon having burning, throbbing and at times sharp pain with redness noted to under left breast.
--- NOTE | 2023-07-27 20:08 | PC.NURSE ---
Pt ca&ox4, no signs of acute distress. Pt denies pain and reports sob, feeling swollen, and fatigued. Pt reports she will usually take lasix at home and this will help how shes feeling but has ran out of the med. Plan of care ongoing.
[2023-07-27] MEDS: Furosemide 20 MG TABLET PO (21:15)
--- NOTE | 2023-07-27 21:16 | PC.NURSE ---
Pt medicated per jan. Pt ca&ox4, no signs of acute distress. Pt with family member at bedside. Plan of care ongoing.
== END 2023-07-27 21:32 | disposition home or self-care (01) ==
PROVIDERS: Physician Assistant; Emergency Provider Emergency Medicine Emergency Medical Services; PCP Internal Medicine
DX: R07.89 Other chest pain (principal); R06.02 Shortness of breath; R60.0 Localized edema; E87.70 Fluid overload, unspecified; F17.210 Nicotine dependence, cigarettes, uncomplicated; Z71.6 Tobacco abuse counseling; Z79.899 Other long term (current) drug therapy
CPT/HCPCS: 36415; 71045; 80053; 83880; 84484; 85025; 85610; 85730; 93005; 99284

== ENCOUNTER 2025-03-22 13:31 | Outpatient (AMB) | payer OTHER, SELFPAY ==
--- NOTE | 2025-03-22 13:50 | MHC.OFFVISWM ---
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 Presents for 2 year 3 month post op visit. She was last seen in the office on 02/18/2023, at that time her weight was 187.6 pounds, with a BMI of 32.2.? Weight today is 201.8 lb with a BMI of 34.7. There has been a 38 pound weight loss,(initial weight 239.8 pounds) since starting the program on 08/07/22 reflecting a 15.8% total body weight loss and a weight loss of 17.7 pounds since surgery (operative weight 219.5 pounds) reflecting a 8% TBWL since surgery.? No complaints of nausea, emesis, abdominal pain or reflux. Reports infrequent but normal bowel movements every 3-4 days. Patient returns to the office today after proximally 18 months incarceration. She has been released to home confinement although able to go to doctor's appointments a proximally 2 weeks ago. She states she has since lost 4 lb. She is excited to return to the program and resume her healthy lifestyle. meal plan includes: none Drinking 40-50 oz ? Exercise routine includes: none PFSH Medical History Gestational diabetes GERD (gastroesophageal reflux disease) BMI 37.0-37.9, adult Heart palpitations Major depression, recurrent Chronic diastolic congestive heart failure Shortness of breath Mitral valve prolapse Gestational diabetes Kidney cysts Hematuria Migraines Anemia Bipolar disorder Gestational diabetes Depression Obesity (BMI 30-39.9) Surgical History S/P excision of ganglion cyst Family History Mother Hx of diabetes mellitus History of hypothyroidism Father Hx of coronary artery disease History of hypertension Maternal Grandfather Hx of diabetes mellitus Paternal Grandmother Hx of diabetes mellitus Maternal Grandfather Hx of coronary artery disease Paternal Grandfather No problems noted. Other Mental health disorder Social History Housing: Apartment Are you a primary urgent care physician to a significant other at home: Yes (1.5 yr old daughter, 12 yr old daughter, 16 yr old son) Do you presently have visiting nurse or other home services: No Alcohol intake: never Patient Tobacco Use Status: Current someday Tobacco user Tobacco use type: Cigarette e-Cigarette/Vaping Use: Never Used Second Hand Smoke Exposure: Yes service: No Current occupational status: employed Cognitive needs: No Hearing needs: No Vision needs: Yes Female Reproductive History Menstrual Age of Menarche: 12 Physical Exam Const General: healthy appearing and no acute distress Resp Effort & Inspection: normal respiratory effort Auscultation: clear to auscultation bilaterally Cardio Rate: regular rate Rhythm: regular rhythm GI Auscultation: normal bowel sounds Extrem General: Yes normal to inspection Assessment & Plan Assessment & Plan (1) S/P laparoscopic sleeve gastrectomy: Code(s): Z98.84 - Bariatric surgery status Category: Surgical Plan: Patient was given information regarding the right BMI loly. She was encouraged to follow this closely. She was very successful using walking as an exercise and she would prefer not to join a gym. She will track her calories while walking outside. We will have her return to the office in approximately 1 month. Check 2 year postop labs Orders: Orders Hemoglobin A1c Today E53.8 - Deficiency of other specified B group vitamins, Z98.84 - Bariatric surgery status Complete Blood Count Auto Diff Today E53.8 - Deficiency of other specified B group vitamins, Z98.84 - Bariatric surgery status Lipid Panel Today E53.8 - Deficiency of other specified B group vitamins, Z98.84 - Bariatric surgery status Zinc Today E53.8 - Deficiency of other specified B group vitamins, Z98.84 - Bariatric surgery status Vitamin B1 Today E53.8 - Deficiency of other specified B group vitamins, Z98.84 - Bariatric surgery status Vitamin D 25-OH Total Today E53.8 - Deficiency of other specified B group vitamins, Z98.84 - Bariatric surgery status Insulin Today E53.8 - Deficiency of other specified B group vitamins, Z98.84 - Bariatric surgery status IRON PROFILE Today E53.8 - Deficiency of other specified B group vitamins, Z98.84 - Bariatric surgery status Comprehensive Met. Panel Today E53.8 - Deficiency of other specified B group vitamins, Z98.84 - Bariatric surgery status Vitamin B12 and Folate Today E53.8 - Deficiency of other specified B group vitamins, Z98.84 - Bariatric surgery status C Reactive Protein Today E53.8 - Deficiency of other specified B group vitamins, Z98.84 - Bariatric surgery status Vitamin A Today E53.8 - Deficiency of other specified B group vitamins, Z98.84 - Bariatric surgery status TSH reflex Free T4 Today E53.8 - Deficiency of other specified B group vitamins, Z98.84 - Bariatric surgery status Ferritin Today E53.8 - Deficiency of other specified B group vitamins, Z98.84 - Bariatric surgery status
[2025-03-22 14:17] VITALS: BP 129/70; PULSE 77; TEMP 36.8; O2SAT 98; BMI 34.6
--- OUTSIDE RECORDS SUMMARY | 2025-03-22 14:35 | XMS_ITS | Clinical Summary ---
Author Organization [facility] Facility Address [address] [address] Care Team Providers Care Meter Reading Clerk Name Role Phone Martha Raya MD Primary Care Provider [phone] Family History Medical History Relation Comments Heart disease Father paternal grandmo ther and grandfather both had heart attacks Hypertension Father Diabetes Mother Heart disease Mother maternal grandfa ther heart attack Relation Status Comments Father Mother Social History Tobacco Use Types Packs/Day Years Used Date Smoking Tobacco: Former Comments Unknown Sex and Gender Information Value Date Recorded Sex Assigned at Not on file Legal Sex Female 4:33 PM EST Gender Identity Not on file Sexual Orientation Not on file Last Filed Vital Signs Vital Sign Reading Time Taken Comments Blood Pressure 126/72 08/23/2019 12:00 PM EDT Pulse 80 08/23/2019 12:00 PM EDT Temperature - - Respiratory Rate - - Oxygen Saturation - - Inhaled Oxygen Concentration - - Weight 96.2 kg (212 lb) 08/23/2019 12:00 PM EDT Height 162.6 cm (5' 4 ) 08/23/2019 12:00 PM EDT Body Mass Index 36.39 08/23/2019 12:00 PM EDT Plan of Treatment Health Maintenance Due Date Last Done Comments Hepatitis B Vaccine (1 of 3 - 19+ 3-dose series) 06/12 Pneumococcal Vaccine: Peds ( 0 to 5 Years) and At-Risk Patients (6 to 49 Years) (1 of 2 - PCV) 2003 Influenza Vaccine (Season Ended) 2025 Insurance [facility] [employer] Care Teams Meter Reading Clerk Relationship Specialty Start Date End Date Martha Raya MD [address] [place] [id number] PCP - General 09/14/19
== END 2025-03-22 14:25 | disposition home or self-care (01) ==
LOC: HO.HBS 13:32
PROVIDERS: PCP Internal Medicine; Visit Provider Physician Assistant Surgical
DX: E66.9 Obesity, unspecified (principal); Z68.34 Body mass index [BMI] 34.0-34.9, adult; Z98.84 Bariatric surgery status
CPT/HCPCS: 99213; G2211

== ENCOUNTER → 2025-03-22 13:31 | Outpatient (BNVA) | payer OTHER, SELFPAY | PROVIDERS: PCP Internal Medicine; Visit Provider Physician Assistant Surgical | DX: Z98.84 Bariatric surgery status (principal) | CPT/HCPCS: 99212 ==

== ENCOUNTER 2025-04-21 12:31 | Outpatient (AMB) | payer OTHER, SELFPAY ==
--- NOTE | 2025-04-21 12:33 | A.OFFVIS_ITS ---
Vital Signs 04/21/25 12:37 Height 5 ft 4 in Weight 199 lb 4.766 oz BMI 34.2 BP 124/62 Blood Pressure Location Lt brachial Position Sitting Pulse 93 Pulse Source Monitor Intake Visit Reasons: 2 yr follow up Breaker Mechanic Required: No Accompanied by: Self / Same As Patient Allergies No Known Allergies Allergy (Verified 02/18/23 09:03) Medication List - Last Reconciled 04/21/25 by Juan Benitez MD furosemide 20 mg PO DAILY PRN HPI Comments Details: Deion returns for follow-up. Last seen in 2022. To recall,in the past, she was seen for suspected rheumatic heart disease. She was in 2020. At that time, she was having shortness of breath and leg swelling but thought to be from . However, after delivery she actually had heart failure and had to be hospitalized. Echocardiogram had shown moderate to severe mitral regurgitation and some mitral stenosis with mean gradient of 7 mm Hg at 79/Min. Also had pulmonary hypertension. Then treated for heart failure and then improved. In the past, has had 3 other children starting from the age of 14 but did not have any issues. Then it seems she had a bariatric surgery and lost some weight but has gained some back. Last year, she was apparently in [place] [facility] and because of that could not keep any medical appointments. Now she is back to her usual life. While in [place] [facility], she states she did not feel good one day. Apparently blood pressure was checked and it was quite low. Then she got IV fluids and improved. Did not happen again. She uses Lasix only a couple of times a month or so. Other days, she states she feels fine. Only on the days he feels some swelling extra, then she takes Lasix but not otherwise. [facility] Medical History Gestational diabetes GERD (gastroesophageal reflux disease) BMI 37.0-37.9, adult Heart palpitations Major depression, recurrent Chronic diastolic congestive heart failure Shortness of breath Mitral valve prolapse Gestational diabetes Kidney cysts Hematuria Migraines Anemia Bipolar disorder Gestational diabetes Depression Obesity (BMI 30-39.9) Surgical History S/P excision of ganglion cyst Family History Mother Hx of diabetes mellitus History of hypothyroidism Father Hx of coronary artery disease History of hypertension Maternal Grandfather Hx of diabetes mellitus Paternal Grandmother Hx of diabetes mellitus Maternal Grandfather Hx of coronary artery disease Paternal Grandfather No problems noted. Other Mental health disorder Social History Housing: Apartment Are you a primary acute care occupational therapist to a significant other at home: Yes (1.5 yr old daughter, 12 yr old daughter, 16 yr old son) Do you presently have visiting nurse or other home services: No Alcohol intake: never Patient Tobacco Use Status: Current someday Tobacco user Tobacco use type: Cigarette e-Cigarette/Vaping Use: Never Used Second Hand Smoke Exposure: Yes service: No Current occupational status: employed Cognitive needs: No Hearing needs: No Vision needs: Yes Female Reproductive History Menstrual Age of Menarche: 12 Review of Systems Const Denies chills, Denies fatigue, Denies fever(s), Denies frequent falls, Denies weakness, Denies weight gain and Denies weight loss ENT Denies dizziness Card Denies chest pain, Denies leg edema, Denies lightheadedness, Denies palpitations, Denies dyspnea and Denies dyspnea on exertion Resp Denies cough, Denies dyspnea and Denies dyspnea on exertion GI Denies hematochezia Musc Denies abnormal gait, Denies muscle weakness, Denies numbness, Denies radiating pain into limb and Denies tingling Neuro Denies Abnormal speech present, Denies abnormal gait, Denies dizziness, Denies frequent falls, Denies numbness, Denies tingling and Denies weakness Endo Denies fatigue and Denies palpitations Physical Exam Vital Signs: Last Vital Signs Pulse 93 04/21/25 12:37 BP 124/62 04/21/25 12:37 BMI result Body Mass Index 34.2 Const General: comfortable and no acute distress Orientation/consciousness: patient oriented x3 HEENT Other: Unremarkable Head: Yes normal to inspection Neck Neck: Yes normal visual inspection Chest Chest palpation & inspection: normal inspection of the chest Resp Auscultation: clear to auscultation bilaterally Cardio Palpation: normal PMI Heart sounds: S1 normal heart sound present, S2 normal heart sound present, no gallops, no murmurs and no rubs GI Palpation (GI): Soft to palpation Back/Spine/Pelvis Other: unremarkable Skin General skin exam: no rashes or lesions noted Neuro General: patient oriented x3 Speech: No Abnormal speech present Extrem General: Yes normal to inspection Psych Mental Status: mental status grossly normal Office Procedures EKG Details: EKG with underlying sinus rhythm at 93/Min; no ischemic changes; [place]. [id number], Complete Assessment & Plan Assessment & Plan (1) Chronic diastolic congestive heart failure: Code(s): I50.32 - Chronic diastolic (congestive) heart failure Category: Medical (2) Non-rheumatic mitral regurgitation: Code(s): I34.0 - Nonrheumatic mitral (valve) insufficiency Category: Medical (3) Morbid obesity: Code(s): E66.01 - Morbid (severe) obesity due to excess calories Category: Medical Plan Cardiac studies reviewed. In the last echocardiogram, LVEF 60%; basal inferior/inferoseptal hypokinesis. Possible rheumatic mitral valve involvement with mild regurgitation, but no stenosis. Overall, much improved from before. In the stress test, she was able to exercise for 9 minutes and 15 seconds on Javon protocol, reached 10.5 Mets. No angina. No EKG evidence of ischemia. The perfusion component was also unremarkable. Overall, she seems stable for the most part. She is taking only Lasix as needed. May continue that. She has not had any labs in a while and needs that done. There is already an order. Otherwise, we will repeat an echocardiogram to reassess the mitral valve. Follow up in 3 months. Discussion Notes We discussed the overall management of the patient's cardiovascular health following her recent incarceration. She was informed about the need for a repeat echocardiogram to assess cardiac function. The importance of conducting comprehensive blood work, with particular attention to renal function tests, was emphasized considering the sporadic use of furosemide. Follow-up assessments will take into account the findings from these diagnostic tests to derive at a suitable management plan. The patient agreed to the planned course of action and the need for further evaluation as outlined. Patient was informed and verbally consented to the use of an ambient scribe for clinic note documentation during this visit. Orders: Orders CA echo transthoracic complete Today I05.9 - Rheumatic mitral valve disease, unspecified Patient Instructions: - Schedule and complete blood test. - Attend the scheduled echocardiogram. - Monitor blood pressure and report any significant symptoms. - Take furosemide as needed for swelling, but report if used more frequently. - Follow up as instructed after diagnostic tests for further management. Coding Level of Care Code Est Pt Level 4 (01411) Complex EM visit Add On G2211 Diagnoses Chronic diastolic congestive heart failure I50.32 Non-rheumatic mitral regurgitation I34.0 Morbid obesity E66.01 CPT Codes EKG - CPT: 62712-[id number], Complete ([id number])
[2025-04-21 12:37] VITALS: BP 124/62; PULSE 93; BMI 34.2
--- OUTSIDE RECORDS SUMMARY | 2025-04-21 14:26 | XMS_ITS | Clinical Summary ---
Author Organization [facility] Address [address] [address] Care Team Providers Care Computer Recycling Worker Name Role Phone Martha Raya MD Primary Care Provider Family History Medical History Relation Comments Heart [...] 2003 Influenza Vaccine (Season Ended) 2025 Insurance [facility] Healthnet Care Teams Computer Recycling Worker Relationship Specialty Start Date End Date Martha Raya MD [address] [place] [id number] PCP - General 09/14/19
== END 2025-04-21 12:56 | disposition home or self-care (01) ==
LOC: HO.HCS 12:32
PROVIDERS: PCP Internal Medicine; Visit Provider Internal Medicine
DX: I50.32 Chronic diastolic (congestive) heart failure (principal); I34.0 Nonrheumatic mitral (valve) insufficiency; E66.01 Morbid (severe) obesity due to excess calories
CPT/HCPCS: 93010; 99214; G2211

== ENCOUNTER → 2025-04-21 12:31 | Outpatient (BNVA) | payer OTHER, SELFPAY | PROVIDERS: PCP Internal Medicine; Visit Provider Internal Medicine | DX: I50.32 Chronic diastolic (congestive) heart failure (principal); I34.0 Nonrheumatic mitral (valve) insufficiency; E66.01 Morbid (severe) obesity due to excess calories | CPT/HCPCS: 93005; 99212 ==

== ENCOUNTER → 2025-05-25 08:44 | Outpatient (REF) | payer OTHER, SELFPAY ==
--- NOTE | 2025-05-25 08:46 | CA_ITS ---
Transthoracic Echocardiogram Patient (Last, First, Middle): Deion Leslie, Gender: Female Date of : 1985 Age: 39 Procedure Date: 05/25/2025 Procedure Type: Transthoracic Echocardiogram Location: OP Height: 160.02 cm Weight: 90.72 kg BSA: 1.93 m2 Heart Rate: bpm BP: 120 / 82 mmHg Liner Inserter: TO Referring MD: Juan Benitez MD Symptoms: I05.9 - Rheumatic mitral valve disease, unspecified Study Quality: Adequate with contrast ECG Rhythm: Sinus Conclusions: - The left ventricular systolic function is low normal. The visually estimated ejection fraction is between 50-55%. - The basal inferolateral segment is hypokinetic. - Possible rheumatic mitral valve with mild regurgitation. Findings Procedure Information Contrast agent, definity, is being given per protocol without apparent complications. Left Ventricle Normal left ventricular cavity size. There is normal left ventricular wall thickness. The left ventricular systolic function is low normal. The visually estimated ejection fraction is between 50-55%. There is no evidence of regional wall motion abnormalities. Diastolic function is normal for age. Wall Motion Rest Echo Findings The basal inferolateral segment is hypokinetic. Right Ventricle Normal right ventricular cavity size and systolic function. Atria Both atria are normal in size. Aortic Valve There is a normal trileaflet aortic valve. There is no aortic valve stenosis. There is no aortic valve regurgitation. Mitral Valve There is mild anterior mitral leaflet thickening. There is mild mitral valve regurgitation. There is no mitral valve stenosis. Possible rheumatic involvement. Pulmonic Valve The pulmonic valve is likely normal. Tricuspid Valve There is trace tricuspid valve regurgitation. There is no evidence of pulmonary hypertension. Great Vessels The asc aorta is normal in size. Venous The inferior vena cava is normal in size and collapses greater than 50% with inspiration. Pericardium/Pleural There is no evidence of pericardial effusion. Prior Study Comparison Changes noted compared to prior study dated: 12/04/2022. LVEF slightly lower than previously reported. Measurements 2D Linear Measurements IVSd: 0.86 0.6-0.9/0.6-1.0 cm LVIDd: 4.40 3.9-5.3/4.2-5.9 cm LVIDd Index: 2.28 2.4-3.2/2.2-3.1 cm/m2 LVIDs: 3.18 2.0-3.6 cm LVPWd: 0.80 0.7-1.1 cm LA Diam: 3.00 2.7-3.8/3.0-4.0 cm LAIDs Index: 1.55 1.5-2.3 cm/m2 LV Mass: 142.40 67-162/88-224 g LV Mass Index: 73.78 43-95/49-115 g/m2 LVOT Diam: 2.10 3.0+(-)1.3 cm 2D Systolic Function EF 4C: 44.40 >55% EF 2C: 51.90 >55% EF BiP: 47.60 >55% Mitral Valve MV VTI: 0.37 MV Pk Bart: 1.42 MV Mn Bart: 0.91 MV Pk Grad: 8.00 MV Mn Grad: 4.00 MV Pk E: 1.00 MV PK A: 0.94 MV Decel Time: 251.00 E/A: 1.10 E'Lateral: 9.90 E'Medial: 7.94 E/E' Med: 12.60 E/E' Lat: 10.10 PHT: 74.00 MVA PHT: 2.97 MVA Continuity: 1.93 Decel [place]: 3.99 Aortic Valve AoV Pk Bart: 1.32 AoV Mn Bart: 0.97 AoV VTI: 0.27 AoV Pk Grad: 7.00 Aov Mn Grad: 4.00 PITA Cont.VTI: 2.63 LVOT LVOT Pk Bart: 1.10 LVOT Mn Bart: 0.72 LVOT VTI: 0.21 LVOT Pk Grad: 5.00 LVOT Mn Grad: 2.00 LVOT Diam: 2.10 LVOT Area: 3.46 Diastolic Function MV Pk E: 1.00 MV Pk A: 0.94 E/A: 1.10 E'Medial: 7.94 E/E' Med: 12.60 E' Laterial: 9.90 E/E' Lat: 10.10 Right Ventricle TAPSE (mm): 21.20 TVS' Bart: 10.20 Tricuspid Valve RA Press: 3.00 Great Vessels Aorta Sinus of Valsalva: 3.09 2.0-3.5 cm Ao Asc: 2.80 2.1-3.4 cm Updated in Other Vendor System with Status of Final Juan Emmanuel MD electronically signed on 05/27/2025 2:17:39 PM with status of Final
--- OUTSIDE RECORDS SUMMARY | 2025-05-25 08:52 | XMS_ITS | Clinical Summary ---
Author Organization [facility] Facility Address [address] [address] Care Team Providers Care Social Worker Masters Name Role Phone Martha Raya MD Primary Care Provider [phone] Family History Medical History Relation Comments Heart [...] of 2 - PCV) 2003 Influenza Vaccine (#1) 2025 Insurance [facility] Healthnet Care Teams Social Worker Masters Relationship Specialty Start Date End Date Martha Raya MD [address] [place] [id number] PCP - General 09/14/19
[2025-05-25 08:56] LABS: MANUAL DIFF FLAG NO
[2025-05-25 09:13] LABS: Hematocrit 38.4 % (37.0-47.0); Hemoglobin 13.4 g/dl (12.0-16.0); Imm Gran Abs Auto 0.03 X10*3/uL (0.00-0.03); Imm Gran Pct Auto 0.5 % (0.0-0.4); Lymphocytes Absolute Auto 1.8 X10*3/uL (1.2-4.9); Mean Corpuscular HGB Conc 34.9 g/dl (31.0-35.0); Mean Corpuscular Hemoglobin 28.9 pg (27.0-33.0); Mean Corpuscular Volume 82.8 fL (80.0-98.0); NRBC Abs Auto 0.000 X10*3/uL (0.0-0.012); NRBC Pct Auto 0.0 /100WBC (0.0-0.2); Platelet Count 346 X10*3/uL (160-400); Red Blood Count 4.64 X10*6/uL (4.20-5.50); White Blood Count 5.8 X10*3/uL (4.8-10.8)
[2025-05-25 09:24] LABS: Hemoglobin A1C 123.2534 umol/L; Total Hemoglobin (HGBA1C) 3501.3817 umol/L
[2025-05-25 09:57] LABS: Alanine Aminotransferase 12 U/L (0-31); Albumin Level 4.3 g/dL (3.5-5.0); Alkaline Phosphatase 68 U/L (39-117); Anion Gap 9 (12-20); Aspartate Amino Transferase 12 U/L (5-31); Blood Urea Nitrogen 11 mg/dL (9-16); Calcium 10.3 mg/dL (8.4-10.2); Carbon Dioxide 24 mmol/L (22-29); Chloride 108 mmol/L (96-108); Cholesterol 174 mg/dL (<200); Estimated Glomerular Filt Rate > 60; HDL Cholesterol 38 mg/dL (>40); Iron 102 mcg/dL (30-160); Percent Iron Saturation 33 % (15-50); Potassium 4.0 mmol/L (3.3-5.1); Sodium 137 mmol/L (135-145); Total Iron Binding Capacity 310 mcg/dL (228-428); Total Protein 7.6 g/dL (6.5-8.0); Triglycerides 170 mg/dL (<150); Unsaturated Iron Binding 208 ug/dL
[2025-05-25 10:06] LABS: Ferritin 56 ng/mL (10-250)
[2025-05-25 10:14] LABS: Folate 8.5 ng/mL (> or = 4.0); Vitamin B12 251 pg/mL (200-900)
== END ==
LOC: HO.CARD 08:44
PROVIDERS: Physician Assistant Surgical; PCP Internal Medicine; Visit Provider Internal Medicine
DX: E53.8 Deficiency of other specified B group vitamins (principal); I05.9 Rheumatic mitral valve disease, unspecified; Z98.84 Bariatric surgery status
CPT/HCPCS: 36415; 80053; 80061; 82306; 82607; 82728; 82746; 83036; 83525; 83540; 84425; 84443; 84590; 84630; 85025; 86140; 93306; Q9957

== ENCOUNTER → 2025-05-25 08:46 | Outpatient (BNV) | payer OTHER, SELFPAY | PROVIDERS: PCP Internal Medicine; Visit Provider Internal Medicine | DX: I05.2 Rheumatic mitral stenosis with insufficiency (principal) | CPT/HCPCS: 93306 ==

== ENCOUNTER 2025-07-19 10:52 | Outpatient (AMB) | payer OTHER, SELFPAY ==
--- NOTE | 2025-07-19 10:53 | A.OFFVIS_ITS ---
Vital Signs 07/19/25 10:54 Height 5 ft 4 in Weight 210 lb 5.136 oz BMI 36.1 BP 122/70 Blood Pressure Location Lt brachial Position Sitting Pulse 96 Pulse Source Pulse Oximeter Intake Visit Reasons: 3m follow up/ echo Accompanied by: Self / Same As Patient Allergies No Known Allergies Allergy (Verified 07/19/25 10:56) Medication List - Last Reconciled 07/19/25 by Juan Benitez MD cholecalciferol (vitamin D3) 125 mcg PO DAILY furosemide 20 mg PO DAILY PRN HPI Comments Details: Deion returns for follow-up. To recall,in the past, she was seen for suspected rheumatic heart disease. She was in 2020. At that time, she was having shortness of breath and leg swelling but thought to be from . However, after delivery she actually had heart failure and had to be hospitalized. Echocardiogram had shown moderate to severe mitral regurgitation and some mitral stenosis with mean gradient of 7 mm Hg at 79/Min. Also had pulmonary hypertension. Then treated for heart failure and then improved. In the past, has had 3 other children starting from the age of 14 but did not have any issues. Then it seems she had a bariatric surgery and lost some weight but has gained some back. Last year, she was apparently in [facility] and because of that could not keep any medical appointments. Now she is back to her usual life. Sometimes, she feels short of breath and takes Lasix but other days she is fine. Otherwise active with no limitations. [facility] Medical History Gestational diabetes GERD (gastroesophageal reflux disease) BMI 37.0-37.9, adult Heart palpitations Major depression, recurrent Chronic diastolic congestive heart failure Shortness of breath Mitral valve prolapse Gestational diabetes Kidney cysts Hematuria Migraines Anemia Bipolar disorder Gestational diabetes Depression Obesity (BMI 30-39.9) Surgical History S/P excision of ganglion cyst Family History Mother Hx of diabetes mellitus History of hypothyroidism Father Hx of coronary artery disease History of hypertension Maternal Grandfather Hx of diabetes mellitus Paternal Grandmother Hx of diabetes mellitus Maternal Grandfather Hx of coronary artery disease Paternal Grandfather No problems noted. Other Mental health disorder Social History Housing: Apartment Are you a primary child care supervisor to a significant other at home: Yes (1.5 yr old daughter, 12 yr old daughter, 16 yr old son) Do you presently have visiting nurse or other home services: No Alcohol intake: never Patient Tobacco Use Status: Current someday Tobacco user Tobacco use type: Cigarette e-Cigarette/Vaping Use: Never Used Second Hand Smoke Exposure: Yes service: No Current occupational status: employed Cognitive needs: No Hearing needs: No Vision needs: Yes Female Reproductive History Menstrual Age of Menarche: 12 Review of Systems Const Denies daytime sleepiness, Denies difficulty sleeping, Denies snoring, Denies stops breathing during sleep and Denies weakness Card Denies chest pain, Denies rapid heart rate, Denies irregular heart rhythm, Denies claudication, Denies leg edema, Denies lightheadedness, Denies palpitations, Denies dyspnea, Denies dyspnea on exertion, Denies orthopnea, Denies paroxysmal nocturnal dyspnea and Denies slow heart rate Resp Denies cough, Denies dyspnea, Denies dyspnea on exertion and Denies snoring GI Reports no additional complaints, Denies hematochezia, Denies change in stool character and Denies dyspepsia Musc Denies abnormal gait, Denies muscle weakness and Denies numbness Neuro Denies abnormal gait, Denies numbness and Denies weakness Endo Denies palpitations Physical Exam Vital Signs: Last Vital Signs Pulse 96 07/19/25 10:54 BP 122/70 07/19/25 10:54 BMI result Body Mass Index 36.1 Const General: comfortable and no acute distress Orientation/consciousness: patient oriented x3 HEENT Other: Unremarkable Head: Yes normal to inspection Neck Neck: Yes normal visual inspection Chest Chest palpation & inspection: normal inspection of the chest Resp Auscultation: clear to auscultation bilaterally Cardio Palpation: normal PMI Heart sounds: S1 normal heart sound present, S2 normal heart sound present, no gallops, no murmurs and no rubs GI Palpation (GI): Soft to palpation Back/Spine/Pelvis Other: unremarkable Skin General skin exam: no rashes or lesions noted Neuro General: patient oriented x3 Extrem General: Yes normal to inspection Psych Mental Status: mental status grossly normal Assessment & Plan Assessment & Plan (1) Chronic diastolic congestive heart failure: Code(s): I50.32 - Chronic diastolic (congestive) heart failure Category: Medical (2) Non-rheumatic mitral regurgitation: Code(s): I34.0 - Nonrheumatic mitral (valve) insufficiency Category: Medical (3) Morbid obesity: Code(s): E66.01 - Morbid (severe) obesity due to excess calories Category: Medical Plan Cardiac studies reviewed. In the most recent echocardiogram, LVEF is 50-55%. Basal inferolateral hypokinesis. Possible rheumatic mitral valve with mild regurgitation. In the previous study, LVEF was 60% and similar wall motion/valvular finding. In the original echocardiogram from [facility] 2020, there was iuqmuors-[id number] mitral regurgitation and also description of mitral stenosis with a mean gradient of 7 mm Hg at 79/Min. Preserved LVEF. In the stress test, she was able to exercise for 9 minutes and 15 seconds on Javon protocol, reached 10.5 Mets. No angina. No EKG evidence of ischemia. The perfusion component was also unremarkable. Overall, she seems fairly stable and not in any overt heart failure/volume overload. Okay to use diuretics as needed as she is currently doing. We will keep her medical regimen fairly simple considering her age and minimal symptoms. Advised to be more active and be cautious about diet and encourage regular physical activity. Follow up in 6 months. Discussion Notes During the consultation, we discussed the management of the patient's congestive heart failure, emphasizing the importance of medication adherence and symptom monitoring. We also highlighted the role of weight management in her overall health, recommending increased physical activity and dietary changes. The patient was advised to follow up with her regular physician for further evaluation and management options regarding weight. Patient was informed and verbally consented to the use of an ambient scribe for clinic note documentation during this visit. Patient Instructions: - Continue taking your medication as prescribed. - Monitor your symptoms and report any significant changes. - Engage in regular physical activity, such as walking to work. - Reduce junk food intake to support weight management. - Follow up with your regular physician for further evaluation and management options. Coding Level of Care Code Est Pt Level 4 (41411) Complex EM visit Add On G2211 Diagnoses Chronic diastolic congestive heart failure I50.32 Non-rheumatic mitral regurgitation I34.0 Morbid obesity E66.01
[2025-07-19 10:54] VITALS: BP 122/70; PULSE 96; BMI 36.1
--- OUTSIDE RECORDS SUMMARY | 2025-07-19 13:08 | XMS_ITS | Encounter Summary ---
Author Organization [facility] Address [address] [facility] [place] [id number] Phone Care Team Providers Care Housekeeper/Custodian/Laundry Worker Name Role Phone Unknown, Unknown Primary Care Provider Martha Gamez MD Primary Care Provider [phone] Encounter Details Date Type Department Care Team (Late st Contact Info) Description 01/22/2021 Ancillary Orders [facility] [address] [place] [address] [facility] [address] [place] [address] [email or web address] Social History Tobacco Use Types Packs/Day Years Used Date Smoking Tobacco: Never Assessed Comments Unknown Sex and Gender Information Value Date Recorded Sex Assigned at Not on file Legal Sex Female 3:23 PM EST Gender Identity Not on file Sexual Orientation Not on file documented as of this encounter Plan of Treatment Not on file documented as of this encounter Visit Diagnoses Not on filedocumented in this encounter Care Teams Housekeeper/Custodian/Laundry Worker Relationship Specialty Start Date End Date Unknown, Unknown, PCP - General 01/18/21 02/12/21 Martha Raya MD [address] [place] [address] PCP - General Internal Medicine 02/13/21 documented as of this encounter Additional Source Comments The information contained in this document represents components of the legal health record. It is not the complete legal health record.[facility]
--- OUTSIDE RECORDS SUMMARY | 2025-07-19 13:08 | XMS_ITS | Clinical Summary ---
Author Organization [facility] Facility Address [address] [address] Care Team Providers Care Valve Inserter Name Role Phone Martha Raya MD Primary Care Provider [phone] Family History Medical History Relation Comments Heart [...] PCV) 2003 Influenza Vaccine (#1) 2025 Insurance [facility] Healthnet Care Teams Valve Inserter Relationship Specialty Start Date End Date Martha Raya MD [address] [place] [id number] PCP - General 09/14/19
--- OUTSIDE RECORDS SUMMARY | 2025-07-19 13:08 | XMS_ITS | Clinical Summary ---
Author Organization [facility] Address [address] [address] Phone Care Team Providers Care Innovation Manager Name Role Phone Martha Raya MD Primary Care Provider [phone] Allergies No known active allergies Medications PNV no.95/ferrous fum/folic ac ( ORAL) Take by mouth. Active ferrous gluconate 324 mg (37.5 mg elemental) TabIndications: Anemia affecting in third trimester Take 1 tablet (324 mg total) by mouth daily. 30 tablet 3 02/16/2021 Active docusate sodium (COLACE) 100 MG capsule Take 1 capsule (100 mg total) by mouth 2 (two) times a day. 60 capsule 02/28/2021 Active ibuprofen (ADVIL,MOTRIN) 600 MG tablet Take 1 tablet (600 mg total) by mouth every 6 (six) hours for 1 dose. 30 tablet 1 02/28/2021 Active Active Problems Problem Noted Date Diagnosed Date Normal intrauterine , antepartum 2020 Overview (02/27/2021): IOL for GDM A1 02/25/21202960/-2, Cook catheter placed 02/26/21 0730 balloon out spontaneously, 5-/-2. Vertex confirmed by u/s 1430 SVE 5-660/-2 1800 SVE 6-/80/-2, AROM clear fluid 2145: FSE placed due to difficulty tracing FH, unable to complete cervical exam due to discomfort 02/27/21 0630 full dilation Assessment & Plan (02/27/2021 7:50 AM EDT): A: - Term , IOL for GDM A1 - Entering second stage without urge to push - Cat 1 FHR- baseline 140, mod florencio, no accels, early decels - GBS neg P: - Attempted to push x 3 contractions with minimal descent of head. - Increase Pitocin for contraction pattern adequacy. Restart pushing in 30-60 min or with onset of regular contractions or strong urge to push - MD Dr. Dumont in house and available as needed Gestational diabetes mellitu s (GDM) affecting fourth 02/16/2021 Overview (02/26/2021): 1hr 171 3hr 91, 205, 179, 90 Seen by expansion joint builder at [facility], notes scanned to chart with [facility] records, reviewed Endo recommended insulin at 38wks; pt opted for IOL Assessment & Plan (02/23/2021 11:58 AM EDT): She reports that her blood sugars are usually normal but her postprandials remain significantly elevated. Therefore, she is being induced in 2 days secondary to uncontrolled gestational diabetes. She is amenable to this plan of action. Assessment & Plan (02/16/2021 2:03 PM EDT): GDM diagnosed by prior providers. Referred to endo at [facility]. Saw them 02/01. Nutrition counseling done by endo at that visit. Did not start medication. Deion reports she had an appt scheduled with a stain remover but the person never called her. Was supposed to have a follow-up with endo yesterday but cancelled it because she had today's appt for OB transfer scheduled. Recommended that she reschedule her endo appointment and continue to see them for diabetes management. Reviewed risks associated with GDM including macrosomia, shoulder dystocia, , pre-eclampsia. Negritorisedyta had been irregular with QID testing. We reviewed goals of fasting glucose under 95 and two hour post-prandial glucose under 120. Strongly encouraged QID testing and keeping log. Supervision of other high risk pregnancies, thir d trimester 02/16/2021 Overview (02/16/2021): RUIZ OB-CMI score = 3 [02/16/21] Transfer of care at 37 weeks. Was seen at [facility] then [facility]. - records in media, reviewed. Rh pos GC/Chlam neg PAP - not found in tx records Tdap 12/16/20 Flu 08/22/20 Hgb 10.3 GTT 171, has GDM 28 wk Repeat RPR - NR GBS - neg (in records) PPBC - Depo, also interested in BTL - consent signed 02/16/21 screening - normal panorama Assessment & Plan (02/23/2021 11:57 AM EDT): She notes movement throughout the day. Denies any vaginal bleeding, leakage of fluid or regular contractions. Her main complaint is bilateral lower extremity edema which is getting worse over the past few days. Her blood pressure is normal and she has no other signs or symptoms of preeclampsia. Assessment & Plan (02/21/2021 12:28 PM EDT): Deion presents today with increased swelling and just generally feeling bad. She is not sleeping well, having irregular contractions. She reports decreased movement over the last couple of days. Placed on monitor in the office, baseline HR 140, no accels in 30 minutes, minimal to moderate variability. Irregular UCs. I recommended prolonged monitoring on the CBC- she agrees, will head there now. CBC notified. If discharged, will return for visit later this week to discuss tubal. Assessment & Plan (02/16/2021 5:49 PM EDT): Deion is a 35 yo presenting for transfer of care at 37 3/7 weeks. Initiated care at [facility], later transferred to [facility] due to dissatisfaction at [facility] and desire for water . She has GDMA1 and risked-out for center delivery so has transferred to [facility]. Feeling well. Lots of generalized discomfort at end of . Active baby. Was taking baby ASA but stopped about two months ago - encouraged her to re-start, which she accepts. History of three , first and third born at [facility], second born in [place]. Denies complications with any pregnancies. Had normal anatomy scan at 19 4/7 weeks. Received tdap and flu shot this . All standard OB labs reviewed and negative. GBS negative. Growth US done on 02/13 shows EFW 7#9, 3419g, 70th percentile overall with AC of 97%. Has been planning Depo for PPBC but also interested in permanent sterilization. Signed BTL consent form today. Discussed that [facility] requires form to be signed 4 weeks prior to procedure so BTL might be done in hospital or outpatient depending on when she delivers. Orientated to [facility], plan for at [facility], pain management options in labor, how to reach prisoner classification interviewer CNM, when to call, labor warning signs. MONAE in one week, will schedule with MD for BTL counseling. 60 minutes spent on this appointment Obesity affecting in third trimester 0 02/16/2021 Overview (02/16/2021): Obesity in (BMI >30) BMI at 36 week tranfer: 43 BMI > 50 (at 36 weeks or before) transfer to tertiary care (send TE to [facility]) * If BMI 40 or greater discuss policy w patient and add to high risk list - added * Nutrtion counseling - has had * 11-20lb weight gain * Growth sono q 4 wks if fundal height not reliable, after 28 weeks - has had growth US * Induction only if indicated * PP lovenox according to guidelines Assessment & Plan (02/23/2021 11:57 AM EDT): Her current BMI is 44 and therefore she meets criteria for delivery at our hospital. Renal cyst 02/16/2021 Overview (02/16/2021): Had cysts of left kidney two years ago. Seen by renal specialist at [facility]. Was due for renal US when was diagnosed. Has not seen specialist during this and has had no issues during . Assessment & Plan (02/16/2021 5:27 PM EDT): Reviewed history today. Has not seen specialist during this and has had no issues during . Anemia affecting in third trimester Overview (02/16/2021): 11.0/32.6 with 3rd trimester labs 02/01 10.3/30.4 at [facility] ED rx sent for iron daily Assessment & Plan (02/16/2021 1:59 PM EDT): Discussed third trimester anemia. Recommended iron supplement daily, Deion accepts. Rx sent to pharmacy. Reviewed that she should take on an empty stomach with water, discussed risk of constipation and importance of increased hydration. Reviewed iron-rich foods. Depression 02/16/2021 Overview (02/16/2021): Remote history, occurred when she went to live in [place] during her second and missed the four seasons of [place]. Denies h/o PPD. No medication or therapist. Assessment & Plan (02/16/2021 5:32 PM EDT): Reviewed history, occurred when she went to live in [place] during her second and missed the four seasons of [place]. Denies h/o PPD. No medication or therapist. Request for sterilization 02/16/2021 Overview (02/16/2021): Consent signed 02/16/21. appt scheduled. Assessment & Plan (02/23/2021 11:59 AM EDT): Her mass health papers were only signed in February 16. Therefore, she will not meet criteria for the 30-day waiting period. In addition, I do not think her body habitus would allow for a PPT L. Therefore, we can consider interval tubal in 6 to 8 weeks after delivery. Resolved Problems Problem Noted Date Diagnosed Date Resolved Date Decreased movement aff ecting management of mother, antepartum 02/21/2021 02/27/2021 Immunizations Immunization Administration Dates Next Due INFLUENZA, SPLIT VIRUS, TRIVALENT W/ PRESERVATIV E IM 10/31/2015 Influenza Quadrivalent Preservative Free IM 02/2019 Influenza Quadrivalent w/ Preservative IM 2017,09/10/2017 Pneumococcal polysaccharide PPSV23 10/31/2015 Tdap 12/14/2020,08/14/2018 Family History Medical History Relation Comments Coronary artery disease Father Hypertension Father Coronary artery disease Maternal Grandfather Diabetes mellitus Maternal Grandfather Diabetes mellitus Mother Hypothyroidism Mother Diabetes mellitus Paternal Grandmother Diverticulitis Unspecified Epilepsy Unspecified Relation Status Comments Father Maternal Grandfather Mother Paternal Grandfather Paternal Grandmother Unspecified Social History Tobacco Use Types Packs/Day Years Used Date Smoking Tobacco: Never Smokeless Tobacco: Never Alcohol Use Standard Drinks/Week Comments Not Currently 0 (1 standard drink = 0.6 oz pur e alcohol) prior hx, not current Education Answer Date Recorded Are you interested in more education? Not on cuong e 03/07/2023 Are you concerned about learning? Not on file 03/07/2023 No 03/07/2023 No 03/07/2023 Digital Access Answer Date Recorded No 04/05/2023 No 04/05/2023 No 04/05/2023 Reliable internet access at home? Not on file 04/05/2023 Device with a working camera? Not on file Comments No Sex and Gender Information Value Date Recorded Sex Assigned at Not on file Legal Sex Female 3:23 PM EST Gender Identity Not on file Sexual Orientation Not on file Last Filed Vital Signs Vital Sign Reading Time Taken Comments Blood Pressure 106/71 02/28/2021 8:00 AM EDT Pulse 83 02/28/2021 8:00 AM EDT Temperature 36.3 C (97.3 F) 02/28/2021 8:00 AM EDT Respiratory Rate 20 02/28/2021 8:00 AM EDT Oxygen Saturation 96% 02/28/2021 8:00 AM EDT Inhaled Oxygen Concentration - - Weight 116.5 kg (256 lb 14.8 oz) 02/25/2021 7:16 PM EDT Height 165.1 cm (5' 5 ) 02/25/2021 7:16 PM EDT Body Mass Index 42.75 02/25/2021 7:16 PM EDT Plan of Treatment Health Maintenance Due Date Last Done Comments DEPRESSION SCREENING 1996 HEPATITIS C SCREENING 2002 HIV ONE-TIME SCREENING (18-65 YEARS) 2002 PAP SMEAR 2005 MAMMOGRAM 2024 INFLUENZA VACCINE (#1) 2025 9, 08/14/2018, 09/10/2017, Additional history exists COVID-19 VACCINE (2024- season) 2025 05/09/2021, 04/18/2021 Adult Td,Tdap Booster 12/14/2030 12/14/2020 , 08/14/2018, 06/01/2013 PNEUMOCOCCAL VACCINES (0-49 years) Aged Out 10/31/2015 No longer eligible based on patient's age to complete this topic SMOKING STATUS SCREENING (Once After 26 Yrs) Completed 02/16/2021 HEPATITIS A VACCINES Aged Out No long er eligible based on patient's age to complete this topic HIB VACCINES Aged Out No longer eligi ble based on patient's age to complete this topic MENINGOCOCCAL VACCINES (ACWY) Aged Out No longer eligible based on patient's age to complete this topic MENINGOCOCCAL VACCINES (B) Aged Out N o longer eligible based on patient's age to complete this topic Medical Devices Not on file [place] [address] [place] [address] ACO [facility] Advance Directives For more information, please contact: [phone] (9AM - 5PM [facility], Friday-Friday) * Full Code (Latest Code Status on File) Date Activated Date Inactivated Comments 02/25/2021 7:54 PM Question Answer Comments Code Status Confirmed With: Patient Care Teams Innovation Manager Relationship Specialty Start Date End Date Martha Raya MD [facility] [place] [address] PCP - General Internal Medicine 02/13/21 Additional Source Comments The information contained in this document represents components of the legal health record. It is not the complete legal health record.[facility]
== END 2025-07-19 11:13 | disposition home or self-care (01) ==
LOC: HO.HCS 10:52
PROVIDERS: PCP Internal Medicine; Visit Provider Internal Medicine
DX: I50.32 Chronic diastolic (congestive) heart failure (principal); I34.0 Nonrheumatic mitral (valve) insufficiency; E66.01 Morbid (severe) obesity due to excess calories
CPT/HCPCS: 99214

== ENCOUNTER → 2025-07-19 10:52 | Outpatient (BNVA) | payer OTHER, SELFPAY | PROVIDERS: PCP Internal Medicine; Visit Provider Internal Medicine | DX: I50.32 Chronic diastolic (congestive) heart failure (principal); I34.0 Nonrheumatic mitral (valve) insufficiency; E66.01 Morbid (severe) obesity due to excess calories; Z68.36 Body mass index [BMI] 36.0-36.9, adult | CPT/HCPCS: 99212 ==

== ENCOUNTER 2025-07-20 16:04 | Outpatient (AMB) | payer OTHER, SELFPAY ==
--- NOTE | 2025-07-20 16:02 | MHC.OFFVISWM ---
VS Expanded 07/20/25 16:05 Height 5 ft 4 in Weight 210 lb BMI 36.0 Intake Visit Reasons: PHONE- PO LSG 12/17/22 would like to try GLP's Allergies No Known Allergies Allergy (Verified 07/19/25 10:56) Medication List - Last Reconciled 07/20/25 by MAHIN Joseph cholecalciferol (vitamin D3) 125 mcg PO DAILY furosemide 20 mg PO DAILY PRN HPI Comments Details: This?is a?40 yo F who is s/p LSG 12/17/2022. Weight at last visit on 03/22/2025 was 201.8 pounds with a BMI of 34.6. Weight today is 210 pounds, representing a 8.2 pound weight loss with a BMI today of 36.? No complaints of nausea, emesis, abdominal pain or reflux, or constipation. She was able to get a job at the [employer] which she is happy about. Present meal plan includes: tried to follow Punch[employer] loly plan but was not consistent with this; she is hopeful she is better able to follow this once having more structure with her new job Exercise routine includes: walking, plans to walk to work [facility] Medical History Gestational diabetes GERD (gastroesophageal reflux disease) BMI 37.0-37.9, adult Heart palpitations Major depression, recurrent Chronic diastolic congestive heart failure Shortness of breath Mitral valve prolapse Gestational diabetes Kidney cysts Hematuria Migraines Anemia Bipolar disorder Gestational diabetes Depression Obesity (BMI 30-39.9) Surgical History S/P excision of ganglion cyst Family History Mother Hx of diabetes mellitus History of hypothyroidism Father Hx of coronary artery disease History of hypertension Maternal Grandfather Hx of diabetes mellitus Paternal Grandmother Hx of diabetes mellitus Maternal Grandfather Hx of coronary artery disease Paternal Grandfather No problems noted. Other Mental health disorder Social History Housing: Apartment Are you a primary clinical care manager to a significant other at home: Yes (1.5 yr old daughter, 12 yr old daughter, 16 yr old son) Do you presently have visiting nurse or other home services: No Alcohol intake: never Patient Tobacco Use Status: Current someday Tobacco user Tobacco use type: Cigarette e-Cigarette/Vaping Use: Never Used Second Hand Smoke Exposure: Yes service: No Current occupational status: employed Cognitive needs: No Hearing needs: No Vision needs: Yes Female Reproductive History Menstrual Age of Menarche: 12 Telehealth Telehealth Telehealth Platform: Telephone Location of provider rendering services: practice address Location of patient: address on file Patient Identification confirmed using: Name, : Yes Telehealth method: voice only Patient verbally consented to treatment: Yes Patient verbally consented to billing insurance company: Yes Patient informed of any privacy concerns related to visit: Yes Minutes spent on Phone/Video with Pt.: 16 Assessment & Plan Assessment & Plan (1) Obesity: Code(s): E66.9 - Obesity, unspecified Category: Medical (2) S/P laparoscopic sleeve gastrectomy: Code(s): Z98.84 - Bariatric surgery status Category: Surgical Plan Pt is interested in GLP1 agonists, however her insurance requires 3mo phentermine first. She is followed by cardiology, would request their clearance or denial before prescribing due to previous cardiac history. Reviewed contraindications, discussed dosing. Discussed need for adequate protein intake while on GLP1s as well as frequent communication with our office. Use PunchTab loly to generate a meal plan. Pt will check in with me weekly and is aware that subsequent Rx will be dependent on frequent communication. RTC 3mo phone call visit 30 min.
[2025-07-20 16:05] VITALS: BMI 36.0
--- OUTSIDE RECORDS SUMMARY | 2025-07-20 18:35 | XMS_ITS | Clinical Summary ---
Author Organization [facility] Address [address] [address] Phone Care Team Providers Care Processing Technician Name Role Phone Martha Raya MD Primary Care Provider [phone] Allergies No known active allergies Medications PNV [...] 3hr 91, 205, 179, 90 Seen by import/export agent at [facility], notes scanned to [facility] with [facility] [...] by prior providers. Referred to endo at [facility]. Saw them 02/01. Nutrition counseling done by endo at that visit. Did not start medication. Deion reports she had an appt scheduled with a family services coordinator but the person never called her. Was [...] care at 37 weeks. Was seen at [facility] then [facility]. - records in media, [...] at 37 3/7 weeks. Initiated care at [facility], later transferred to [facility] due to dissatisfaction at [facility] and desire for water . She has GDMA1 and risked-out for center delivery so has transferred to [facility]. Feeling well. Lots of generalized discomfort at end of . Active baby. Was taking baby ASA but stopped about two months ago - encouraged her to re-start, which she accepts. History of three , first and third born at [facility], second born in [place]. Denies complications with any pregnancies. Had normal [...] Signed BTL consent form today. Discussed that [facility] requires form to be signed 4 weeks prior to procedure so BTL might be done in hospital or outpatient depending on when she delivers. Orientated to [facility], plan for at [facility], pain management options in labor, how to reach utility division project manager CNM, when to call, labor warning signs. [...] years ago. Seen by renal specialist at [facility]. Was due for renal US when was diagnosed. Has not seen specialist during this and has had no issues during . Assessment & Plan (02/16/2021 5:27 PM EDT): Reviewed history today. Has not seen specialist during this and has had no issues during . Anemia affecting in third trimester Overview (02/16/2021): 11.0/32.6 with 3rd trimester labs 02/01 10.3/30.4 at [facility] ED rx sent for iron daily Assessment & Plan (02/16/2021 1:59 PM EDT): Discussed third trimester anemia. Recommended iron supplement daily, Deion accepts. Rx sent to pharmacy. Reviewed that she should take on an empty stomach with water, discussed risk of constipation and importance of increased hydration. Reviewed iron-rich foods. Depression 02/16/2021 Overview (02/16/2021): Remote history, occurred when she went to live in [place] during her second and missed the four seasons of [place]. Denies h/o PPD. No medication or therapist. Assessment & Plan (02/16/2021 5:32 PM EDT): Reviewed history, occurred when she went to live in [place] during her second and missed the four seasons of [place]. Denies h/o PPD. No medication or therapist. [...] topic Medical Devices Not on [place] [address] [place] [address] ACO [facility]CO Advance Directives For more information, please contact: [phone] (9AM - 5PM [facility], Friday-Friday) * Full Code (Latest Code Status on File) Date Activated Date Inactivated Comments 02/25/2021 7:54 PM Question Answer Comments Code Status Confirmed With: Patient Care Teams Processing Technician Relationship Specialty Start Date End Date Martha Raya MD [facility] [place] [id number] PCP - General Internal Medicine 02/13/21 Additional Source Comments The information contained in this document represents components of the legal health record. It is not the complete legal health record.[facility]
--- OUTSIDE RECORDS SUMMARY | 2025-07-20 18:35 | XMS_ITS | Clinical Summary ---
Author Organization [facility] Address [address] [address] Care Team Providers Care Grinding Wheel Dresser Name Role Phone Martha Raya MD Primary Care Provider [phone] Family History Medical History Relation Comments Heart [...] PCV) 2003 Influenza Vaccine (#1) 2025 Insurance [facility] [employer] Care Teams Grinding Wheel Dresser Relationship Specialty Start Date End Date Martha Raya MD [address] [place] [id number] PCP - General 09/14/19
--- OUTSIDE RECORDS SUMMARY | 2025-07-20 18:35 | XMS_ITS | Encounter Summary ---
Author Organization [facility] Address [address] [facility] [address] [place] [id number] Phone Care Team Providers Care Ski Base Trimmer Name Role Phone Unknown, Unknown Primary Care Provider Martha Gamez MD Primary Care Provider [phone] Encounter Details Date Type Department Care Team (Late st Contact Info) Description 01/22/2021 Ancillary Orders [facility] [address] [place] [address] [facility] [address] [place] [address] [email or web address] Social History Tobacco Use Types Packs/Day Years [...] on filedocumented in this encounter Care Teams Ski Base Trimmer Relationship Specialty Start Date End Date Unknown, Unknown, PCP - General 01/18/21 02/12/21 Martha Raya MD [address] [facility] [place] [id number] PCP - General Internal Medicine 02/13/21 documented as of this encounter Additional Source Comments The information contained in this document represents components of the legal health record. It is not the complete legal health record.[facility]
== END 2025-07-20 16:21 | disposition home or self-care (01) ==
LOC: HO.HBS 16:04
PROVIDERS: PCP Internal Medicine; Visit Provider Physician Assistant Surgical
DX: E66.9 Obesity, unspecified (principal); Z98.84 Bariatric surgery status
CPT/HCPCS: 99214

== ENCOUNTER 2025-08-09 15:00 | Outpatient (AMB) | payer OTHER, SELFPAY ==
[2025-08-09 15:02] VITALS: BP 118/72; PULSE 74; O2SAT 98; BMI 35.5
--- NOTE | 2025-08-09 15:02 | A.OFFPC_ITS ---
Vital Signs 08/09/25 15:02 Height 5 ft 4 in Weight 207 lb BMI 35.5 BP 118/72 Blood Pressure Location Lt brachial Position Sitting Pulse 74 Pulse Source Pulse Oximeter Pulse Oximetry (%) 98 Intake Visit Reasons: Annual pe Allergies No Known Allergies Allergy (Verified 08/09/25 15:03) Medication List - Last Reconciled 08/09/25 by Martha Raya MD cholecalciferol (vitamin D3) 125 mcg PO DAILY furosemide 20 mg PO DAILY PRN tirzepatide (weight loss) (Zepbound) 2.5 mg (0.5 mL) subcut QWEEK Tobacco use date assessed: 08/09/25 Dental Screening Dental Screen Date: 08/09/25 Did you have a dental visit in the last 12 months?: Yes Did you have a dental problem in the last 6 months where you did not have access to dental care?: No Was dental information given to patient?: Patient has dentist HPI Annual pe HPI Details Physical exam appointment The patient is a 40 year old female presenting with concerns related to knee and back pain. Osteoarthritis: - Reports onset of knee problems while i ncarcerated, first noticed as swelling. - A fall down the stairs exacerbated the problem. - Describes swelling and worsening pain provoked by activity such as squats and climbing to a bunk bed. - Tailbone also injured from fall, causi ng occasional flare-ups. - Reports pain has persisted. Lipoma: - Describes persistent pain associated w ith a lipoma around the upper shoulder area for years. - The pain is alleviated when pressure i s applied. - No changes in physical appearance, but chronic in nature. Patient is requesting evaluation by surgery Vitamin D Deficiency: - Low levels noted in recent labs, patie nt is attempting to remember to take supplements. Medical History: - Mitral Valve Prolapse with Regurgitati on, stable - Vitamin D Deficiency - History of Incarceration ([facility] ), involved in a misunderstanding related to conspiracy charges Surgical History: - Sleeve Gastrectomy prior to incarcerat ion Social History: - Current employment at a [email or web address] but not satisfied due to inactivity. 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 - Experience with incarceration in a [facility]. Health Maintenance - Recent mammogram performed in March 2023 with normal results - Taking Vitamin D supplements for defic iency - Checked by utility sales representative before incarce ration; stable heart condition - Scheduled OBGYN visit upcoming in [place] at [facility] - Follow-ups with Bariatric and Cardiolo gist teams Medications - Zepbound for weight management - Vitamin D supplement for deficiency - Water pill as needed, per utility sales representative 's instructions - Labs from May 2023 showed stability - Mammogram in March 2023 with normal resu lts Patient Instructions - Continue with Vitamin D supplements - Use tife-ttd-jbsytqc lidocaine patches or Bengay cream for knee pain - Consider weight loss to help alleviate symptoms of osteoarthritis - Scheduled for surgery consultation reg isabell lipoma Review of Systems - General: No fever no chills - Neurological: No headaches no dizzin ess - Ear nose throat: No sore throat no hearing difficulty no ear pain - Cardiovascular: No syncope, no chest pain, no palpitations - Gastrointestinal: No nausea vomiting or diarrhea - Endocrine: No polyuria polydipsia no heat intolerance - Genitourinary: No dysuria - Skin: No new complaints Physical Exam General: Cooperative, healthy appearing, comfortable, no acute distress Orientation: Patient oriented x3 Head: Normal to inspection Ears: Within normal limit visually Nose: Normal external nose present Face and sinus: Normal facial exam Eyes: Appearance normal, extraocular movement intact pupils reactive Neck: Normal visual inspection and supple Respiratory: Normal respiratory effort and able to speak in complete sentences. Clear to auscultation, no stridor Cardiovascular: S1 and S2 RRR, mitral valve prolapse noted GI: Normal to inspection. Soft to palpation and nontender Back: Fat accumulation at the base of neck noted Skin: Turgor normal, no acute findings Neuro: Patient oriented x3, motor sensory intact, balance intact, tandem pass Extremities: Normal to inspection, full range of motion in knees, initial stage of osteoarthritis noted in left knee . [facility] Medical History Gestational diabetes GERD (gastroesophageal reflux disease) BMI 37.0-37.9, adult Heart palpitations Major depression, recurrent Chronic diastolic congestive heart failure Shortness of breath Mitral valve prolapse Gestational diabetes Kidney cysts Hematuria Migraines Anemia Bipolar disorder Gestational diabetes Depression Obesity (BMI 30-39.9) Surgical History S/P excision of ganglion cyst Family History Mother Hx of diabetes mellitus History of hypothyroidism Father Hx of coronary artery disease History of hypertension Maternal Grandfather Hx of diabetes mellitus Paternal Grandmother Hx of diabetes mellitus Maternal Grandfather Hx of coronary artery disease Paternal Grandfather No problems noted. Other Mental health disorder Social History Housing: Apartment Are you a primary medicare biller to a significant other at home: Yes (1.5 yr old daughter, 12 yr old daughter, 16 yr old son) Do you presently have visiting nurse or other home services: No Alcohol intake: never Patient Tobacco Use Status: Current someday Tobacco user Tobacco use type: Cigarette e-Cigarette/Vaping Use: Never Used Second Hand Smoke Exposure: Yes service: No Current occupational status: employed Cognitive needs: No Hearing needs: No Vision needs: Yes Female Reproductive History Menstrual Age of Menarche: 12 Questionnaire PHQ-9 Over the last 2 weeks, how often have you been bothered by any of the following problems? 1. Little interest or pleasure in doing things: several days 2. Feeling down, depressed, or hopeless: several days 3. Trouble falling or staying asleep, or sleeping too much: nearly every day 4. Feeling tired or having little energy: several days 5. Poor appetite or overeating: more than half the days 6. Feeling bad about yourself - or that you are a failure or have let yourself or your family down: not at all 7. Trouble concentrating on things, such as reading the newspaper or watching television: not at all 8. Moving or speaking so slowly that other people could have noticed. Or the opposite - being so fidgety or restless that you have been moving around a lot more than usual: not at all 9. Thoughts that you would be better off or of hurting yourself in some way: not at all Total score: 8 Depression Screening Interpretation: Positive Depression Screening Done: Yes 43503 - PHQ-9 Billing: Yes Source: Developed by Drs. Baldo Bright, Prudence Alejandra, Len Zamora and colleagues, with an educational nigel from [employer]. Thrive Questionnaire Date Thrive assessed: 08/09/25 I am a: Patient What is your living situation today?: I have a steady place to live Within the past 12 months, did the food you bought not last and you didn't have the money to get more?: Sometimes True Within the past 12 months, did you worry whether your food would run out before you got money to buy more?: Sometimes True Do you have trouble paying for medicines?: No Do you have trouble getting transportation to medical appointments?: No Do you have trouble paying your heating and electricity bill?: Yes Do you have trouble taking care of your child, family member or friend?: No Do you have trouble with day-to-day activities such as bathing, preparing meals, shopping, managing finances, etc.?: Yes Are you currently unemployed and looking for a job?: No Are you interested in more education?: No Please select the resources that you would like help with: Utilities Currently or been in a relationship where the following occur: No concerns reported THRIVE Score: 3 AUDIT C Alcohol Use Questionnaire (AUDIT-C) 1. How often do you have a drink containing alcohol?: Monthly or less 2. How many drinks containing alcohol do you have on a typical day when you are drinking?: 1 or 2 3. How often do you have six or more drinks on one occasion?: Less than monthly Total Score: 2 Score Reviewed/Action Taken: Yes RAUL-7 AMB Questionnaire RAUL-7 Date RAUL - 7 assessed: 08/09/25 Feeling nervous, anxious, or on edge: 0 = Not at all Not being able to stop or control worryin = Several days Worrying too much about different things: 1 = Several days Trouble relaxin = Several days Being so restless that it is hard to sit still: 0 = Not at all Becoming easily annoyed or irritable: 1 = Several days Feeling afraid as if something awful might happen: 1 = Several days Total RAUL-7 score (0-4 normal; 5-9 mild; 10-14 moderate; 15-21 severe): 5 Source: Developed by Drs. Baldo Bright, Prduence Alejandra, Len Zamora and colleagues, with an educational nigel from [employer]. RAUL-7 Assessment Billing RAUL-7 Assessment Tool: RAUL-7 Assessment 81346 Physical exam (Primary Care) Vital Signs: Last Vital Signs Pulse 74 08/09/25 15:02 BP 118/72 08/09/25 15:02 Pulse Ox 98 08/09/25 15:02 BMI result Body Mass Index 35.5 Tobacco/Smoking Status: Tobacco use Status Tobacco use date assessed 08/09/25 08/09/25 15:07 Patient Tobacco Use Status Current someday Tobacco 08/09/25 15:02 Tobacco use type Cigarette 08/09/25 15:02 e-Cigarette/Vaping Use Never Used 08/09/25 15:02 PHQ-9: PHQ-9 Score PHQ-9: Total score 8 08/10/25 09: Depression Screening Interpretation: Positive Thrive Assessment: Date of Thrive Assessment Date Thrive assessed 08/09/25 08/09/25 15:07 Currently or been in a relationship where the following occur: No concerns reported Office Procedures Flu Questionnaire Does the patient have a severe egg allergy?: No Does the patient have severe life threatening allergies?: No Does the patient have a fever or illness today?: No Has the patient ever had Guillain-[place] Syndrome?: No Has the patient ever had any past reaction to a flu shot?: No Immunizations Fluarix [id number] (PF) 45 mcg (15 mcg x 3)/0.5 mL IM syringe Performing Provider: Martha Raya MD Performing Location: [facility] Adult Primary [facility] Administered by: Lamberto Munson CMA on 08/09/25 15:36 Dose Route Admin Location Dispensed Lot Number Expiration Date [facility] Solid Waste Truck Driver 0.5 mL IM Left Deltoid 0.5 mL [id number] 05/09/26 [id number] [employer] VIS Given Date VIS Provided VIS Publication Date 08/09/25 Single Vaccine 24 Eligibility Eligibility Date Funding Source Not [facility] Eligible 08/09/25 Private Coding Level of Care Code Est Pt Level 3 (17034) Est Pt Prev Care 40-64y(66317) Diagnoses Encounter for general adult medical examination with abnormal findings Z00.01 Primary osteoarthritis of both knees M17.0 Osteoarthritis type: primary Lipoma of back D17.1 Obesity (BMI 30-39.9) E66.9 Non-rheumatic mitral regurgitation I34.0 Bipolar disorder, in full remission, most recent episode mixed F31.78 Active/Remission status: in full remission Most recent bipolar episode type: mixed Additional Codes RAUL-7 Assessment Billing - RAUL-7 Assessment Tool: RAUL-7 Assessment 80723 ([id number]) PHQ-9 - 50461 - PHQ-9 Billing: Yes ([id number]) Assessment & Plan Assessment & Plan (1) Encounter for general adult medical examination with abnormal findings: Code(s): Z00.01 - Encounter for general adult medical examination with abnormal findings Category: Medical (2) Osteoarthritis of knees, bilateral: Code(s): M17.0 - Bilateral primary osteoarthritis of knee Category: Medical Qualifiers: Osteoarthritis type: primary Qualified Code(s): M17.0 - Bilateral anna andrés osteoarthritis of knee (3) Lipoma of back: Code(s): D17.1 - Benign lipomatous neoplasm of skin and subcutaneous tissue of trunk Category: Medical (4) Obesity (BMI 30-39.9): Code(s): E66.9 - Obesity, unspecified Category: Medical (5) Non-rheumatic mitral regurgitation: Code(s): I34.0 - Nonrheumatic mitral (valve) insufficiency Category: Medical (6) Bipolar disorder: Code(s): F31.9 - Bipolar disorder, unspecified Category: Medical Qualifiers: Active/Remission status: in full remission Most recent bipolar episode type: mixed Qualified Code(s): F31.78 - Bipolar disorder, in full remission, most recent episode mixed Plan Physical exam appointment The patient is a 40 year old female presenting with concerns related to knee and back pain. Osteoarthritis: - Reports onset of knee problems while incarcerated, first noticed as swelling. - A fall down the stairs exacerbated the problem. - Describes swelling and worsening pain provoked by activity such as squats and climbing to a bunk bed. - Tailbone also injured from fall, causing occasional flare-ups. - Reports pain has persisted. Lipoma: - Describes persistent pain associated with a lipoma around the upper shoulder area for years. - The pain is alleviated when pressure is applied. - No changes in physical appearance, but chronic in nature. Patient is requesting evaluation by surgery Vitamin D Deficiency: - Low levels noted in recent labs, patient is attempting to remember to take supplements. Medical History: - Mitral Valve Prolapse with Regurgitation, stable - Vitamin D Deficiency - History of [place]arcer[place] involved in a misunderstanding related to conspiracy charges Surgical History: - Sleeve Gastrectomy prior to incarceration Social History: - Current employment at a [employer] but not satisfied due to inactivity. 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 - Experience with incarceration in a [facility]. Health Maintenance - Recent mammogram performed in March 2023 with normal results - Taking Vitamin D supplements for deficiency - Checked by utility sales representative before incarceration; stable heart condition - Scheduled OBGYN visit upcoming in September at [facility] - Follow-ups with Bariatric and Accounting Practice Manager teams Medications - Zepbound for weight management - Vitamin D supplement for deficiency - Water pill as needed, per utility sales representative's instructions - Labs from May 2023 showed stability - Mammogram in March 2023 with normal results Patient Instructions - Continue with Vitamin D supplements - Use gbvh-upc-xfcscgr lidocaine patches or Bengay cream for knee pain - Consider weight loss to help alleviate symptoms of osteoarthritis - Scheduled for surgery consultation regarding lipoma Orders: Orders Influenza [id number] Immunization 08/09/25 Z23 - Encounter for immunization Referrals General Surgery Referral D17.1 - Benign lipomatous neoplasm of skin and subcutaneous tissue of trunk
--- OUTSIDE RECORDS SUMMARY | 2025-08-09 16:25 | XMS_ITS | Clinical Summary ---
Author Organization [facility] Facility Address [address] [address] Care Team Providers Care Consumer Insights Specialist Name Role Phone Martha Raya MD Primary Care Provider [phone] Family History Medical History Relation Comments Heart [...] PCV) 2003 Influenza Vaccine (#1) 2025 Insurance [facility] [employer] Care Teams Consumer Insights Specialist Relationship Specialty Start Date End Date Martha Raya MD [address] [place] [id number] PCP - General 09/14/19
--- OUTSIDE RECORDS SUMMARY | 2025-08-09 16:25 | XMS_ITS | Encounter Summary ---
Author Organization [facility] Address [address] [place] [address] Phone Care Team Providers Care Stitch Bonder Machine Operator Helper Name Role Phone Unknown, Unknown Primary Care Provider Martha Gamez MD Primary Care Provider [phone] Encounter Details Date Type Department Care Team (Late st Contact Info) Description 01/22/2021 Ancillary Orders [facility] [address] [place] [address] [facility] [address] [place] [address] [email or web address] Social History Tobacco Use Types Packs/Day Years [...] on filedocumented in this encounter Care Teams Stitch Bonder Machine Operator Helper Relationship Specialty Start Date End Date Unknown, Unknown, PCP - General 01/18/21 02/12/21 Martha Raya MD [address] [place] [address] PCP - General Internal Medicine 02/13/21 documented as of this encounter Additional Source Comments The information contained in this document represents components of the legal health record. It is not the complete legal health record.[facility]
--- OUTSIDE RECORDS SUMMARY | 2025-08-09 16:25 | XMS_ITS | Clinical Summary ---
Author Organization [facility] Address [address] [address] Phone Care Team Providers Care Guillotine Trimmer Name Role Phone Martah Raya MD Primary Care Provider [phone] Allergies No known active allergies Medications PNV [...] 3hr 91, 205, 179, 90 Seen by alarm signaler at [facility], notes scanned to chart with [facility] [...] by prior providers. Referred to endo at [facility]. Saw them 02/01. Nutrition counseling done by endo at that visit. Did not start medication. Deion reports she had an appt scheduled with a primary operator but the person never called her. Was [...] care at 37 weeks. Was seen at [facility] then [facility]. - records in media, [...] at 37 3/7 weeks. Initiated care at [facility], later transferred to [facility] due to dissatisfaction at [facility] and desire for water . She has GDMA1 and risked-out for center delivery so has transferred to [facility]. Feeling well. Lots of generalized discomfort at end of . Active baby. Was taking baby ASA but stopped about two months ago - encouraged her to re-start, which she accepts. History of three , first and third born at [facility], second born in [place]. Denies complications with any pregnancies. Had normal [...] Signed BTL consent form today. Discussed that [facility] requires form to be signed 4 weeks prior to procedure so BTL might be done in hospital or outpatient depending on when she delivers. Orientated to [facility], plan for at [facility], pain management options in labor, how to reach manager social responsibility CNM, when to call, labor warning signs. [...] years ago. Seen by renal specialist at [facility]. Was due for renal US when was diagnosed. Has not seen specialist during this and has had no issues during . Assessment & Plan (02/16/2021 5:27 PM EDT): Reviewed history today. Has not seen specialist during this and has had no issues during . Anemia affecting in third trimester Overview (02/16/2021): 11.0/32.6 with 3rd trimester labs 02/01 10.3/30.4 at [facility] ED rx sent for iron daily Assessment & Plan (02/16/2021 1:59 PM EDT): Discussed third trimester anemia. Recommended iron supplement daily, Deion accepts. Rx sent to pharmacy. Reviewed that she should take on an empty stomach with water, discussed risk of constipation and importance of increased hydration. Reviewed iron-rich foods. Depression 02/16/2021 Overview (02/16/2021): Remote history, occurred when she went to live in [place] during her second and missed the four seasons of [place]. Denies h/o PPD. No medication or therapist. Assessment & Plan (02/16/2021 5:32 PM EDT): Reviewed history, occurred when she went to live in [place] during her second and missed the four seasons of [place]. Denies h/o PPD. No medication or therapist. [...] topic Medical Devices Not on file Insurance [place] [address] ACO [facility] ACO [facility]CO [facility]CO [address] [place] [facility] ACO [facility] ACO [facility] ACO [facility] ACO Advance Directives For more information, please contact: [phone] (9AM - 5PM [facility], Friday-Friday) * Full Code (Latest Code Status on File) Date Activated Date Inactivated Comments 02/25/2021 7:54 PM Question Answer Comments Code Status Confirmed With: Patient Care Teams Guillotine Trimmer Relationship Specialty Start Date End Date Martha Raya MD [facility] [place] [address] PCP - General Internal Medicine 02/13/21 Additional Source Comments The information contained in this document represents components of the legal health record. It is not the complete legal health record.[facility]
== END 2025-08-09 15:38 | disposition home or self-care (01) ==
LOC: HO.HMCC 15:01
PROVIDERS: PCP Internal Medicine; Visit Provider Internal Medicine
DX: Z23 Encounter for immunization (principal)

== ENCOUNTER → 2025-08-09 15:00 | Outpatient (BNVA) | payer OTHER, SELFPAY | PROVIDERS: PCP Internal Medicine; Visit Provider Internal Medicine | DX: Z00.01 Encounter for general adult medical examination with abnormal findings (principal); M17.0 Bilateral primary osteoarthritis of knee; D17.1 Benign lipomatous neoplasm of skin and subcutaneous tissue of trunk; I34.0 Nonrheumatic mitral (valve) insufficiency; F31.78 Bipolar disorder, in full remission, most recent episode mixed; E66.9 Obesity, unspecified; Z68.35 Body mass index [BMI] 35.0-35.9, adult; Z23 Encounter for immunization | CPT/HCPCS: 90471; 90656; 96127; 99212; 99396 ==

== ENCOUNTER 2025-10-24 12:01 | Outpatient (AMB) | payer OTHER, SELFPAY ==
--- NOTE | 2025-10-24 12:04 | MHC.OFFVISWM ---
VS Expanded 10/24/25 12:07 Height 5 ft 4 in Weight 178 lb BMI 30.6 Intake Visit Reasons: Phone PO LSG 12/17/22 Allergies No Known Allergies Allergy (Verified 08/09/25 15:03) Medication List - Last Reconciled 10/24/25 by MAHIN Joseph cholecalciferol (vitamin D3) 125 mcg PO DAILY furosemide 20 mg PO DAILY PRN tirzepatide (weight loss) (Zepbound) 10 mg (0.5 mL) subcut QWEEK HPI Comments Details: This is a 40 yo F who is s/p LSG 12/17/2022. Weight at last visit on 07/20/2025 was 210 pounds; weight today is 178 pounds, representing a 32 pound weight loss with a BMI today of 30.6. No complaints of nausea, emesis, abdominal pain or reflux, or constipation. She is working at [employer]. She is concerned about hair loss which has been a longstanding problem. Present meal plan includes: tried to follow [employer] loly plan but was not consistent with this uses protein shakes 1x/day usually will have tuna or other meats with veg Exercise routine includes: walking, plans to walk to work [address] way, also on her feet all day and gets 7-11k steps on work days [facility] Medical History Gestational diabetes GERD (gastroesophageal reflux disease) BMI 37.0-37.9, adult Heart palpitations Major depression, recurrent Chronic diastolic congestive heart failure Shortness of breath Mitral valve prolapse Gestational diabetes Kidney cysts Hematuria Migraines Anemia Bipolar disorder Gestational diabetes Depression Obesity (BMI 30-39.9) Surgical History S/P excision of ganglion cyst Family History Mother Hx of diabetes mellitus History of hypothyroidism Father Hx of coronary artery disease History of hypertension Maternal Grandfather Hx of diabetes mellitus Paternal Grandmother Hx of diabetes mellitus Maternal Grandfather Hx of coronary artery disease Paternal Grandfather No problems noted. Other Mental health disorder Social History Housing: Apartment Are you a primary rehab care assistant to a significant other at home: Yes (1.5 yr old daughter, 12 yr old daughter, 16 yr old son) Do you presently have visiting nurse or other home services: No Alcohol intake: never Patient Tobacco Use Status: Current someday Tobacco user Tobacco use type: Cigarette e-Cigarette/Vaping Use: Never Used Second Hand Smoke Exposure: Yes service: No Current occupational status: employed Cognitive needs: No Hearing needs: No Vision needs: Yes Female Reproductive History Menstrual Age of Menarche: 12 Telehealth Telehealth Telehealth Platform: Telephone Location of provider rendering services: practice address Location of patient: address on file Patient Identification confirmed using: Name, : Yes Telehealth method: voice only Patient verbally consented to treatment: Yes Patient verbally consented to billing insurance company: Yes Patient informed of any privacy concerns related to visit: Yes Minutes spent on Phone/Video with Pt.: 15 Assessment & Plan Assessment & Plan (1) Obesity: Code(s): E66.9 - Obesity, unspecified Category: Medical (2) S/P laparoscopic sleeve gastrectomy: Code(s): Z98.84 - Bariatric surgery status Category: Surgical Plan Pt doing well on Zepbound. Will continue. Discussed that getting adequate protein is important for ongoing weight loss (as well as hair/skin/nails health) and recommended one protein shake per day in addition to 2 small meals high in protein. She is interested in a dermatology referral for ongoing hair loss. RTC 4mo.
[2025-10-24 12:07] VITALS: BMI 30.6
== END 2025-10-24 12:22 | disposition home or self-care (01) ==
LOC: HO.HBS 12:01
PROVIDERS: PCP Internal Medicine; Visit Provider Physician Assistant Surgical
DX: E66.9 Obesity, unspecified (principal); Z98.84 Bariatric surgery status
CPT/HCPCS: 99214

== ENCOUNTER 2025-11-07 10:37 | Outpatient (AMB) | payer OTHER, SELFPAY ==
--- NOTE | 2025-11-07 10:41 | A.OFFVIS_ITS ---
Vital Signs 11/07/25 10:52 Height 5 ft 4 in Weight 175 lb 8 oz BMI 30.1 Intake Visit Reasons: Lipoma of trunk Intake Note: Patient presents for an assessment for lipoma of the trunk. Pt c/o; Onset 2 years , reports she has a dark spot on her back she feels occasional tingling sensation but when the area is touched she can not feel it, she does feel constant tingling sensation and pain on that area, reports she had a fall a few month ago and bruised her tailbone. Nicking Machine Operator Required: No Accompanied by: Child Allergies No Known Allergies Allergy (Verified 11/07/25 10:53) Medication List - Last Reconciled 11/07/25 by Lobo Yang MD cholecalciferol (vitamin D3) 125 mcg PO DAILY furosemide 20 mg PO DAILY PRN tirzepatide (weight loss) (Zepbound) 10 mg (0.5 mL) subcut QWEEK HPI HPI Lipoma of trunk: Details: [age] year old female referred for a question of a lipoma. She actually describes skin discoloration on the upper back which she says she has had for many years. However, she feels that she has some burning sensation in the area as well. She does not feel any lump in the area. She denies any trauma to the area. She denies any discharge or open wound. [facility] Medical History (Updated 11/07/25 @ 11:04 by Lobo Yang MD) Skin abnormality Gestational diabetes GERD (gastroesophageal reflux disease) BMI 37.0-37.9, adult Heart palpitations Major depression, recurrent Chronic diastolic congestive heart failure Shortness of breath Mitral valve prolapse Gestational diabetes Kidney cysts Hematuria Migraines Anemia Bipolar disorder Gestational diabetes Depression Obesity (BMI 30-39.9) Surgical History H/O gastric sleeve S/P excision of ganglion cyst Family History Mother Hx of diabetes mellitus History of hypothyroidism Father Hx of coronary artery disease History of hypertension Maternal Grandfather Hx of diabetes mellitus Paternal Grandmother Hx of diabetes mellitus Maternal Grandfather Hx of coronary artery disease Paternal Grandfather No problems noted. Other Mental health disorder Social History Housing: Apartment Are you a primary patient care coordinator to a significant other at home: Yes (1.5 yr old daughter, 12 yr old daughter, 16 yr old son) Do you presently have visiting nurse or other home services: No Alcohol intake: never Patient Tobacco Use Status: Current someday Tobacco user Tobacco use type: Cigarette e-Cigarette/Vaping Use: Never Used Second Hand Smoke Exposure: Yes service: No Current occupational status: employed Cognitive needs: No Hearing needs: No Vision needs: Yes Female Reproductive History Menstrual Age of Menarche: 12 Review of Systems Const Denies chills and Denies fever(s) Card Denies chest pain, Denies dyspnea and Denies dyspnea on exertion Resp Denies cough, Denies dyspnea and Denies dyspnea on exertion GI Denies hematochezia and Denies change in bowel habits Denies hematuria Musc Denies back pain and Denies limited range of motion Neuro Denies focal weakness and Denies convulsions Psych Denies depression and Denies mood swings Physical Exam Vital Signs: BMI result Body Mass Index 30.1 Const General: comfortable and no acute distress Orientation/consciousness: patient oriented x3 Neck Neck: Yes no lymphadenopathy Resp Auscultation: clear to auscultation bilaterally Cardio Rhythm: regular rhythm GI Palpation (GI): Soft to palpation, nontender and no guarding Back/Spine/Pelvis Other: On the upper back is note of an area of dark discoloration, skin dryness, flat, smooth without any obvious mass, no lipomatous mass, no open wound or ulceration Neuro General: patient oriented x3 Assessment & Plan Assessment & Plan (1) Skin abnormality: Code(s): L98.9 - Disorder of the skin and subcutaneous tissue, unspecified Category: Medical Plan: She has this area of skin discoloration on the upper back. There is no palpable mass. She does not have any lipomatous mass in the area. She appears to have some dermatitic condition affecting the skin of the upper back. She does not require any surgical intervention for this. I did advise her to see another maintenance manager as she says that her previous maintenance manager did not feel that this was a skin condition She can follow up with me on a p.r.n. basis. Coding Level of Care Code New Pt Level 2 (35162) Diagnoses Skin abnormality L98.9
[2025-11-07 10:52] VITALS: BMI 30.1
--- OUTSIDE RECORDS SUMMARY | 2025-11-07 12:07 | XMS_ITS | Clinical Summary ---
Author Organization [facility] Address [address] [address] Phone Care Team Providers Care Air Pollution Analyst Name Role Phone Martha Raya MD Primary Care Provider [phone] Allergies No known active allergies Medications PNV [...] 3hr 91, 205, 179, 90 Seen by topographical surveyor at [facility], notes scanned to chart with [facility] [...] by prior providers. Referred to endo at [facility]. Saw them 02/01. Nutrition counseling done by endo at that visit. Did not start medication. Deion reports she had an appt scheduled with a copy worker but the person never called her. Was [...] care at 37 weeks. Was seen at [facility] then [facility]. - records in media, [...] at 37 3/7 weeks. Initiated care at [facility], later transferred to [facility] due to dissatisfaction at [facility] and desire for water . She has GDMA1 and risked-out for center delivery so has transferred to [facility]. Feeling well. Lots of generalized discomfort at end of . Active baby. Was taking baby ASA but stopped about two months ago - encouraged her to re-start, which she accepts. History of three , first and third born at [facility], second born in [place]. Denies complications with any pregnancies. Had normal [...] Signed BTL consent form today. Discussed that [facility] requires form to be signed 4 weeks prior to procedure so BTL might be done in hospital or outpatient depending on when she delivers. Orientated to [facility], plan for at [facility], pain management options in labor, how to reach train control electronic technician CNM, when to call, labor warning signs. [...] years ago. Seen by renal specialist at [facility]. Was due for renal US when was diagnosed. Has not seen specialist during this and has had no issues during . Assessment & Plan (02/16/2021 5:27 PM EDT): Reviewed history today. Has not seen specialist during this and has had no issues during . Anemia affecting in third trimester Overview (02/16/2021): 11.0/32.6 with 3rd trimester labs 02/01 10.3/30.4 at [facility] ED rx sent for iron daily Assessment & Plan (02/16/2021 1:59 PM EDT): Discussed third trimester anemia. Recommended iron supplement daily, Deion accepts. Rx sent to pharmacy. Reviewed that she should take on an empty stomach with water, discussed risk of constipation and importance of increased hydration. Reviewed iron-rich foods. Depression 02/16/2021 Overview (02/16/2021): Remote history, occurred when she went to live in [place] during her second and missed the four seasons of [place]. Denies h/o PPD. No medication or therapist. Assessment & Plan (02/16/2021 5:32 PM EDT): Reviewed history, occurred when she went to live in [place] during her second and missed the four seasons of [place]. Denies h/o PPD. No medication or therapist. [...] Date Last Done Comments DEPRESSION SCREENING 1996 HIV ONE-TIME SCREENING (18-65 YEARS) 2002 PAP [...] (Once After 26 Yrs) Completed 02/16/2021 HEPATITIS C SCREENING Completed 02/25/2021 HEPATITIS A VACCINES Aged Out No long [...] this topic Medical Devices Not on file Procedures Procedure Name Priority Date/Time Associated Diagnosis Comments HEPATITIS B SURFACE ANTIGEN Timed 02/25/2021 8:09 PM EDT from Last 3 Months or Most Recently Relevant to Health Maintenance Results * Hepatitis B surface antigen (02/25/2021 8:09 PM EDT) HBV SURFACE ANTIGEN NON-REACTI VE NON-REACTI VE [facility] Blood 02/25/2021 8:09 PM EDT 02/25/2021 8:19 PM EDT us Rosalva Tellez CN LAB BLOOD BKR ORDERABL ES Final Result [facility] [address], [place] [id number] from Last 3 Months or Most Recently Relevant to Health Maintenance [address] [place] [address] [facility] [place] [address] [place] [address] [address] [place] [address] [place] [address] [address] [place] [address] [place] [address] [address] [place], [place] [id number] [place] [address] ACO Advance Directives For more information, please contact: [phone] (9AM - 5PM [place], Friday-Friday) * Full Code (Latest Code Status on File) Date Activated Date Inactivated Comments 02/25/2021 7:54 PM Question Answer Comments Code Status Confirmed With: Patient Care Teams Air Pollution Analyst Relationship Specialty Start Date End Date Martha Raya MD [address] [place] [address] [place] [address] PCP - General Internal Medicine 02/13/21 Additional Source Comments The information contained in this document represents components of the legal health record. It is not the complete legal health record.[facility]
--- OUTSIDE RECORDS SUMMARY | 2025-11-07 12:07 | XMS_ITS | Encounter Summary ---
Author Organization [facility] Address [address] [employer] [facility] [address] [place] [address] Phone Care Team Providers Care County Adviser Name Role Phone Unknown, Unknown Primary Care Provider Martha Gamez MD Primary Care Provider [phone] Encounter Details Date Type Department Care Team (Late st Contact Info) Description 01/22/2021 Ancillary Orders [facility] Obst[facility]s [facility] Gynecology Clinic [address] [place] [address] [facility] [address] [place] [address] [email or web address] Social Social History Tobacco Use Types Packs/Day Years [...] on filedocumented in this encounter Care Teams County Adviser Relationship Specialty Start Date End Date Unknown, Unknown, PCP - General 01/18/21 02/12/21 Martha Raya MD [facility] [place] [address] PCP - General Internal Medicine 02/13/21 documented as of this encounter Additional Source Comments The information contained in this document represents components of the legal health record. It is not the complete legal health record.[facility]
--- OUTSIDE RECORDS SUMMARY | 2025-11-07 12:07 | XMS_ITS | Clinical Summary ---
Author Organization [facility] Address [address] [address] Care Team Providers Care Other Spatial Scientist Name Role Phone Martha Raya MD Primary Care Provider [phone] Family History Medical History Relation Comments Heart [...] PCV) 2003 Influenza Vaccine (#1) 2025 Insurance [employer] Care Teams Other Spatial Scientist Relationship Specialty Start Date End Date Martha Raya MD [address] [place] [id number] PCP - General 09/14/19
== END 2025-11-07 11:27 | disposition home or self-care (01) ==
LOC: HO.HGS 10:38
PROVIDERS: PCP Internal Medicine; Visit Provider Surgery
DX: L98.9 Disorder of the skin and subcutaneous tissue, unspecified (principal)
CPT/HCPCS: 99202

== ENCOUNTER → 2025-11-07 10:37 | Outpatient (BNVA) | payer OTHER, SELFPAY | PROVIDERS: PCP Internal Medicine; Visit Provider Surgery | DX: L98.9 Disorder of the skin and subcutaneous tissue, unspecified (principal) | CPT/HCPCS: 99202 ==

== ENCOUNTER 2025-11-08 08:12 | Outpatient (AMB) | payer OTHER, SELFPAY ==
[2025-11-08 08:14] VITALS: BP 120/72; PULSE 85; RESP 18; TEMP 36.6; O2SAT 97; BMI 30.2
--- NOTE | 2025-11-08 08:14 | A.OFFPC_ITS ---
Vital Signs 11/08/25 08:14 Height 5 ft 4 in Weight 176 lb 2 oz BMI 30.2 BP 120/72 Blood Pressure Location Rt brachial Position Sitting Respiration 18 Pulse 85 Pulse Source Pulse Oximeter Temp 98 F Temp Source Oral Pulse Oximetry (%) 97 Oxygen Delivery Method Room Air Intake Visit Reasons: 3m follow up Allergies No Known Allergies Allergy (Verified 11/08/25 08:17) Medication List - Last Reconciled 11/08/25 by Martha Raya MD cholecalciferol (vitamin D3) 125 mcg PO DAILY furosemide 20 mg PO DAILY PRN tirzepatide (weight loss) (Zepbound) 10 mg (0.5 mL) subcut QWEEK Tobacco use date assessed: 11/08/25 Dental Screening Dental Screen Date: 11/08/25 Did you have a dental visit in the last 12 months?: Yes Did you have a dental problem in the last 6 months where you did not have access to dental care?: No Was dental information given to patient?: Patient has dentist HPI HPI Comments History of Present Illness Details History of Present Illness The patient is a 40-year-old female presenting for a follow-up visit for back pain. Thoracic and Lumbar Pain: - The patient reports pain in her thorac ic and lumbar back region. - The pain does not radiate down her leg s. - She occasionally experiences numbness in right lateral upper leg. Obesity and Weight Management: - The patient is under the care of a [facility] ght management clinic. - She is prescribed Zepbound by this cli keisha. - Her weight has decreased from 207 lbs in July to 176 lbs at today's visit. - The patient notes she is no longer eat ing large pizzas by herself. Alopecia: - The patient reports a history of hair loss and thinning hair. - This condition started when she was ar ound 20 years old and predates her recent weight loss. - She is being referred to a dermatologi st by her weight management provider for this issue. Vitamin D Deficiency: - Lab work from May showed a low vitami n D level. - She is aware she should be taking a vi tamin D supplement. Medical History: - Obesity - Alopecia, since age 20 - Vitamin D deficiency Medications: - Zepbound for weight management, [facility]cr [facility]. Social History: - Weight Management: The patient reports significant weight loss, from 207 lbs in July to 176 lbs. - Nutritional Intake: The patient has ma de dietary changes, such as no longer eating a large pizza by herself. - Residence: The patient lives in [facility]. Diagnostic Results: - Labs from May: - CBC: No anemia. - Electrolytes: Within normal limits. - Creatinine: 0.74 mg/dL. - GFR: 60. - Random glucose: 136 mg/dL. - A1c: 5.4%. - Liver enzymes: Stable. - LDL: 102 mg/dL. - Vitamin D: Low. - Thyroid test: Within normal limit. [facility] Medical History Skin abnormality Gestational diabetes GERD (gastroesophageal reflux disease) BMI 37.0-37.9, adult Heart palpitations Major depression, recurrent Chronic diastolic congestive heart failure Shortness of breath Mitral valve prolapse Gestational diabetes Kidney cysts Hematuria Migraines Anemia Bipolar disorder Gestational diabetes Depression Obesity (BMI 30-39.9) Surgical History H/O gastric sleeve S/P excision of ganglion cyst Family History Mother Hx of diabetes mellitus History of hypothyroidism Father Hx of coronary artery disease History of hypertension Maternal Grandfather Hx of diabetes mellitus Paternal Grandmother Hx of diabetes mellitus Maternal Grandfather Hx of coronary artery disease Paternal Grandfather No problems noted. Other Mental health disorder Social History Housing: Apartment Are you a primary personal care assistant to a significant other at home: Yes (1.5 yr old daughter, 12 yr old daughter, 16 yr old son) Do you presently have visiting nurse or other home services: No Alcohol intake: never Patient Tobacco Use Status: Current someday Tobacco user Tobacco use type: Cigarette e-Cigarette/Vaping Use: Never Used Second Hand Smoke Exposure: Yes service: No Current occupational status: employed Cognitive needs: No Hearing needs: No Vision needs: Yes Female Reproductive History Menstrual Age of Menarche: 12 Questionnaire Thrive Questionnaire Date Thrive assessed: 08/02/25 AUDIT C Alcohol Use Questionnaire (AUDIT-C) 1. How often do you have a drink containing alcohol?: Never 3. How often do you have six or more drinks on one occasion?: Never Total Score: 0 Score Reviewed/Action Taken: Yes RAUL-7 AMB Questionnaire RAUL-7 Date RAUL - 7 assessed: 08/09/25 Source: Developed by Drs. Baldo Bright, Prudence Alejandra, eLn Zamora and colleagues, with an educational nigel from [employer]. Review of Systems Narrative Review of Systems - General: No fever no chills - Neurological: No headaches no dizziness - Ear nose throat: No sore throat no hearing difficulty no ear pain - Cardiovascular: No syncope, no chest pain, no palpitations - Gastrointestinal: No nausea vomiting or diarrhea - Endocrine: No polyuria polydipsia no heat intolerance - Genitourinary: No dysuria , no blood in urine Physical exam (Primary Care) Vital Signs: Last Vital Signs Temp 98 F 11/08/25 08:14 Pulse 85 11/08/25 08:14 Resp 18 11/08/25 08:14 BP 120/72 11/08/25 08:14 Pulse Ox 97 11/08/25 08:14 Oxygen Delivery Method Room Air 11/08/25 08:14 BMI result Body Mass Index 30.2 Tobacco/Smoking Status: Tobacco use Status Tobacco use date assessed 11/08/25 11/08/25 08:18 Patient Tobacco Use Status Current someday Tobacco 11/08/25 08:18 Tobacco use type Cigarette 11/08/25 08:18 e-Cigarette/Vaping Use Never Used 11/08/25 08:18 Thrive Assessment: Date of Thrive Assessment Date Thrive assessed 08/02/25 11/08/25 08:18 Narrative Physical Exam General: No acute distress HEENT: No acute findings Neck: Supple Respiratory system: Able to talk in full sentences, no audible wheeze Cardiovascular: S1-S2 regular in rate and rhythm Gastrointestinal: No pain Extremities: No new findings back : mild tender over lumber spine wtih percusion, ROM intact, st leg neg DEBEADER: Alert awake oriented x3 motor intact Skin: Normal turgor Coding Level of Care Code Est Pt Level 4 (68962) Diagnoses Lumbar pain M54.50 Chronic midline thoracic back pain M54.6; G89.29 Chronicity: chronic Back pain laterality: midline Vitamin D deficiency E55.9 Falling hair L65.9 Obesity (BMI 30-39.9) E66.9 Assessment & Plan Assessment & Plan (1) Lumbar pain: Code(s): M54.50 - Low back pain, unspecified Category: Medical (2) Thoracic back pain: Code(s): M54.6 - Pain in thoracic spine Category: Medical Qualifiers: Chronicity: chronic Back pain laterality: midline Qualified Code(s): M54.6 - Pain in thoracic spine; G89.29 - Other chronic pain (3) Vitamin D deficiency: Code(s): E55.9 - Vitamin D deficiency, unspecified Category: Medical (4) Falling hair: Code(s): L65.9 - Nonscarring hair loss, unspecified Category: Medical (5) Obesity (BMI 30-39.9): Code(s): E66.9 - Obesity, unspecified Category: Medical Plan Problem List - Thoracic pain - Lumbago - Alopecia - Vitamin D deficiency - Obesity - Preventative care: Referral to orthopedics/sports medicine for back pain. Plan - A referral has been placed for the patient to see a back specialist at [facility] for evaluation of thoracic and lumbar pain. - The patient was advised to continue taking vitamin D supplements for her deficiency. - The patient will continue to be managed by her weight management clinic for obesity, and they will order any necessary lab work. - The patient will follow up with a it application development manager for chronic hair loss via a referral from her weight management provider. - The patient was advised to be mindful of her posture and avoid looking down for extended periods to prevent muscle strain. - Follow-up is scheduled for August. Orders: Referrals Pain Management Referral M54.50 - Low back pain, unspecified, M54.6 - Pain in thoracic spine
--- OUTSIDE RECORDS SUMMARY | 2025-11-08 09:42 | XMS_ITS | Encounter Summary ---
Author Organization [facility] Address [address] [facility] [address] [place] [address] Phone Care Team Providers Care Student Services Coordinator Name Role Phone Unknown, Unknown Primary Care Provider Martha Gamez MD Primary Care Provider [phone] Encounter Details Date Type Department Care Team (Late st Contact Info) Description 01/22/2021 Ancillary Orders [facility] Obstetrics and Gynecology Clinic [address] [place] [address] [facility] [address] [place] [address] [email or web address] Social History Tobacco Use Types Packs/Day Years [...] on filedocumented in this encounter Care Teams Student Services Coordinator Relationship Specialty Start Date End Date Unknown, Unknown, PCP - General 01/18/21 02/12/21 Martha Raya MD [facility] [place] [address] PCP - General Internal Medicine 02/13/21 documented as of this encounter Additional Source Comments The information contained in this document represents components of the legal health record. It is not the complete legal health record.[facility]
--- OUTSIDE RECORDS SUMMARY | 2025-11-08 09:42 | XMS_ITS | Clinical Summary ---
Author Organization [facility] Address [address] [address] Phone Care Team Providers Care Central Office Mechanic Name Role Phone Martha Raya MD Primary Care Provider [phone] Allergies No known active allergies Medications PNV [...] 3hr 91, 205, 179, 90 Seen by mechanism inspector at [facility], notes scanned to chart with [facility] [...] by prior providers. Referred to endo at [facility]. Saw them 02/01. Nutrition counseling done by endo at that visit. Did not start medication. Deion reports she had an appt scheduled with a iron cutter but the person never called her. Was [...] care at 37 weeks. Was seen at [facility] then [facility]. - records in media, [...] at 37 3/7 weeks. Initiated care at [facility], later transferred to [facility] due to dissatisfaction at [facility] and desire for water . She has GDMA1 and risked-out for center delivery so has transferred to [facility]. Feeling well. Lots of generalized discomfort at end of . Active baby. Was taking baby ASA but stopped about two months ago - encouraged her to re-start, which she accepts. History of three , first and third born at [facility], second born in [place]. Denies complications with any pregnancies. Had normal [...] Signed BTL consent form today. Discussed that [facility] requires form to be signed 4 weeks prior to procedure so BTL might be done in hospital or outpatient depending on when she delivers. Orientated to [facility], plan for at [facility], pain management options in labor, how to reach nutritional assistant CNM, when to call, labor warning signs. [...] years ago. Seen by renal specialist at [facility]. Was due for renal US when was diagnosed. Has not seen specialist during this and has had no issues during . Assessment & Plan (02/16/2021 5:27 PM EDT): Reviewed history today. Has not seen specialist during this and has had no issues during . Anemia affecting in third trimester Overview (02/16/2021): 11.0/32.6 with 3rd trimester labs 02/01 10.3/30.4 at [facility] ED rx sent for iron daily Assessment & Plan (02/16/2021 1:59 PM EDT): Discussed third trimester anemia. Recommended iron supplement daily, Deion accepts. Rx sent to pharmacy. Reviewed that she should take on an empty stomach with water, discussed risk of constipation and importance of increased hydration. Reviewed iron-rich foods. Depression 02/16/2021 Overview (02/16/2021): Remote history, occurred when she went to live in [place] during her second and missed the four seasons of May. Denies h/o PPD. No medication or therapist. Assessment & Plan (02/16/2021 5:32 PM EDT): Reviewed history, occurred when she went to live in [place] during her second and missed the four seasons of May. Denies h/o PPD. No medication or therapist. [...] HBV SURFACE ANTIGEN NON-REACTI VE NON-REACTI VE [facility] Blood 02/25/2021 8:09 PM EDT 02/25/2021 8:19 PM EDT us Rosalva Tellez CN LAB BLOOD BKR ORDERABL ES Final Result [facility] [address], [place] [id number] from Last 3 Months or Most Recently Relevant to Health Maintenance [place] [address] [place] [address] [facility] [address] [address] [address] [address] [place] [address] [place], [place] [id number] [place] [address] A[employer] Advance Directives For more information, please contact: [phone] (9AM - 5PM [place], Friday-Friday) * Full Code (Latest Code Status on File) Date Activated Date Inactivated Comments 02/25/2021 7:54 PM Question Answer Comments Code Status Confirmed With: Patient Care Teams Central Office Mechanic Relationship Specialty Start Date End Date Martha Raya MD [address] [place] [address] [place] [id number] PCP - General Internal Medicine 02/13/21 Additional Source Comments The information contained in this document represents components of the legal health record. It is not the complete legal health record.[facility]
--- OUTSIDE RECORDS SUMMARY | 2025-11-08 09:42 | XMS_ITS | Clinical Summary ---
Author Organization [facility] Address [address] [address] Care Team Providers Care General Distillery Worker Name Role Phone Martha Raya MD [...] PCV) 2003 Influenza Vaccine (#1) 2025 Insurance [facility] [employer] Care Teams General Distillery Worker Relationship Specialty Start Date End Date Martha Raya MD [address] [place] [id number] PCP - General 09/14/19
== END 2025-11-08 08:41 | disposition home or self-care (01) ==
LOC: HO.HMCC 08:12
PROVIDERS: PCP Internal Medicine; Visit Provider Internal Medicine
DX: M54.50 Low back pain, unspecified (principal); M54.6 Pain in thoracic spine; G89.29 Other chronic pain; E55.9 Vitamin D deficiency, unspecified; L65.9 Nonscarring hair loss, unspecified; E66.9 Obesity, unspecified

== ENCOUNTER → 2025-11-08 08:12 | Outpatient (BNVA) | payer OTHER, SELFPAY | PROVIDERS: PCP Internal Medicine; Visit Provider Internal Medicine | DX: M54.50 Low back pain, unspecified (principal); M54.6 Pain in thoracic spine; G89.29 Other chronic pain; E55.9 Vitamin D deficiency, unspecified; L65.9 Nonscarring hair loss, unspecified; E66.9 Obesity, unspecified; F17.210 Nicotine dependence, cigarettes, uncomplicated | CPT/HCPCS: 99212 ==